=== PATIENT | male | born 1940 | race Asian ===

== ENCOUNTER → 2018-02-28 | Day surgery (SDC) | payer BC, OTHER ==
[2018-02-20 11:53] VITALS: Ht 162.6 cm; Wt 56.8 kg
[~2018-02-28] VITALS: Ht 162.6 cm; Wt 56.8 kg
[~2018-02-28] MED LIST: ASPI1TAB83 PO; ENDOSCOPIC MARKER 5 ML SYR ONE; GLC/500 PO; GLIM2TAB2 PO; INSU100I23 SC; LIDOCAINE HCL 2% 2 ML VIAL (20MG/ML) ONE; PROPOFOL IV EMULSION 10 MG/ML 20 ML VIAL ONE; SODIUM CHLORIDE 0.9% 500ML 500 ML IV ONE
[2018-02-28 11:53] VITALS: TEMP 36.2
--- NOTE | 2018-02-28 12:45 | Endo History and Physical ---
History & Physical Date of Service: February 28, 2018. Chief Complaint: screening Referring Physician: Dr. Nathan History of Present Illness 78 yo male who presents for screening colonoscopy. Past Surgical History Hx Cardiac Surgery: No Hx Internal Defibrillator: No Hx Pacemaker: No Hx Abdominal Surgery: No Hx of Implantable Prosthesis: No Hx Post-Op Nausea and Vomiting: No Hx Cancer Surgery: No Hx Thoracic Surgery: No Hx Orthopedic: Yes (L SHOULDER 1997) Hx Urinary Tract Surgery: No Family History None Social History Smoking Status: Never Smoker Hx Substance Use: No Hx Alcohol Use: Yes (OCCASIONALLY) Allergies Coded Allergies: No Known Allergies (Unverified , 02/28/18) Current Medications Reported Home Medications Medications Dose Route/Sig Max Daily Dose Days Date Category Glucophage (Metformin Hcl) 500 Mg Tab 500 Mg PO BID 02/20/18 Reported Glimepiride 2 Mg Tab 1.5 Tab PO QDD 30 02/20/18 Reported Glimepiride 2 Mg Tab 1 Tab PO QAM 30 02/20/18 Reported Basaglar Kwikpen (Insulin Glargine) 100 Unit/Ml Inj 5-10 Units SC QPM 02/20/18 Reported Aspirin 81 Mg Tab 1 Tab PO DAILY 30 02/20/18 Reported Vital Signs Weight (Kilograms): 56.82 Height (Feet): 5 Height (Inches): 4 Date Time Temp Pulse Resp B/P (MAP) Pulse Ox O2 Delivery O2 Flow Rate FiO2 02/28/18 11:53 36.2 80 18 190/98 (128) 97 Room Air Physical Exam General Appearance: WD/WN, no apparent distress Respiratory/Chest: Auscultation: breath sounds normal Cardiovascular: Heart Auscultation: RRR Abdomen: Bowel Sounds: normal Inspection & Palpation: soft, non-distended, no tenderness, guarding & rebound Assessment and Plan Assessment: 78 yo male who presents for screening colonoscopy. Plan: Proceed with colonoscopy.
--- NOTE | 2018-02-28 13:16 | Discharge Instructions ---
Endoscopy Patient Instructions Date / Procedure(s) Performed February 28, 2018. Colonoscopy Allergy Information Coded Allergies: No Known Allergies (Unverified , 02/28/18) Discharge Date / Findings February 28, 2018. Polypoid mass at Hepatic Flexure s/p biopsies and Sammie Ink Tattoo Diverticulosis Internal hemorrhoids Medication Instructions Stopped Medication(s): All meds stopped 02/26/18. OK to resume all medications today as prescribed Reported Home Medications Medications Dose Route/Sig Max Daily Dose Days Date Category Glucophage (Metformin Hcl) 500 Mg Tab 500 Mg PO BID 02/20/18 Reported Glimepiride 2 Mg Tab 1.5 Tab PO QDD 30 02/20/18 Reported Glimepiride 2 Mg Tab 1 Tab PO QAM 30 02/20/18 Reported Basaglar Kwikpen (Insulin Glargine) 100 Unit/Ml Inj 5-10 Units SC QPM 02/20/18 Reported Aspirin 81 Mg Tab 1 Tab PO DAILY 30 02/20/18 Reported Provider Instructions Activity Restrictions - No exercising or heavy lifting for 24 hours. - Do not drink alcohol the day of the procedure. - Do not drive a car or operate machinery until the day after the procedure. - Do not make any important decisions or sign important papers in 24 hours after the procedure. Following Day: - Return to full activity which may include returning to work/school. Diet Start your diet with liquids and light foods (jello, soup, juice, toast). Then eat your usual diet if not nauseated. Treatment For Common After Affects For mild abdominal pain, bloating, or excessive gas: - Rest - Eat lightly - Lie on right side Follow-Up Information Follow-up with Dr. Nathan as scheduled Anesthesia Information What You Should Know You have had a procedure that required some medicine to reduce anxiety and discomfort. This treatment is called moderate sedation. After receiving the treatment, you may be sleepy, but you will be able to breathe on your own. The effects of the treatment may last for several hours. Follow these instructions along with Activity/Diet recommendations noted above: * Do NOT do anything where dizziness or clumsiness would be dangerous. * Rest quietly at home today, then you can be up and about tomorrow. * Have a responsible person stay with you the rest of today. * You may have had an I.V. today. If so, you may take the dressing off later today. Recommendations Call your doctor if: * Trouble breathing * Continuous vomiting for more than 24 hours * Temperature above 101 degrees * Severe abdominal pain or bloating * Pain not relieved by pain medicine ordered * There is increased drainage or redness from any incision * A large amount of rectal bleeding greater than 2-3 tablespoons. (If you had a polyp/s removed or have hemorrhoids, a small amount of blood - from the rectum is to be expected.) * You have any unanswered questions or concerns. IN THE EVENT OF A SERIOUS EMERGENCY, GO TO THE NEAREST EMERGENCY ROOM Your discharge instructions were prepared by provider Ankush Bryant. Patient Instructions Signature Page Boubacar Brunner Patient (or Guardian) Signature/Date: I have read and understand the instructions given to me by my caregivers. Caregiver/RN/Doctor Signature/Date: The above-named patient and/or guardian has received patient instructions on this date. + Original Patient Signature Page (only) stays with chart. Please make copy for patient.
--- NOTE | 2018-02-28 13:24 | Anesthesiology Progress Note ---
Anesthesia Post Op Note Date & Time February 28, 2018 at 13:24 Vital Signs Pain Intensity: 0 Vital Signs Past 12 Hours Date Time Temp Pulse Resp B/P (MAP) Pulse Ox O2 Delivery O2 Flow Rate FiO2 02/28/18 13:12 73 18 110/60 (77) 74 Room Air 02/28/18 11:53 36.2 80 18 190/98 (128) 97 Room Air Notes Mental Status: alert / awake / arousable, participated in evaluation Pt Amnestic to Procedure: Yes Nausea / Vomiting: adequately controlled Pain: adequately controlled Airway Patency, RR, SpO2: stable & adequate BP & HR: stable & adequate Hydration State: stable & adequate Anesthetic Complications: no major complications apparent
--- NOTE | 2018-02-28 13:30 | GI REPORT ---
Patient Name: Boubacar Brunner Procedure Date: 02/28/2018 12:18 PM Date of : 1940 Admit Type: Outpatient Age: 78 Gender: Male Attending MD: Ankush Bryant DO Procedure: Colonoscopy Providers: Ankush Bryant DO Referring MD: Dax Nathan Indications: Screening for colorectal malignant neoplasm Medicines: Monitored Anesthesia Care Complications: No immediate complications. Estimated Blood Loss: Estimated blood loss: none. Procedure: Pre-Anesthesia Assessment: - Prior to the procedure, a History and Physical was performed, and patient medications and allergies were reviewed. The patient's tolerance of previous anesthesia was also reviewed. The risks and benefits of the procedure and the sedation options and risks were discussed with the patient. All questions were answered, and informed consent was obtained. Prior Anticoagulants: The patient has taken aspirin, last dose was 2 days prior to procedure. ASA Grade Assessment: III - A patient with severe systemic disease. After reviewing the risks and benefits, the patient was deemed in satisfactory condition to undergo the procedure. After I obtained informed consent, the scope was passed under direct vision. Throughout the procedure, the patient's blood pressure, pulse, and oxygen saturations were monitored continuously. The Scope was introduced through the anus and advanced to the terminal ileum. The colonoscopy was performed without difficulty. The patient tolerated the procedure well. The quality of the bowel preparation was good. The terminal ileum, ileocecal valve, appendiceal orifice, and rectum were photographed. Findings: The perianal and digital rectal examinations were normal. A 30 mm polypoid lesion was found at the hepatic flexure. The lesion was polypoid and multi-lobulated. No bleeding was present. This was biopsied with a cold forceps for histology. Area was tattooed with an injection of 4 mL of Sammie ink. Multiple small-mouthed diverticula were found in the sigmoid colon. Non-bleeding internal hemorrhoids were found during retroflexion. The hemorrhoids were small. Impression: - Likely benign polypoid lesion at the hepatic flexure. Biopsied. Tattooed. - Diverticulosis in the sigmoid colon. - Non-bleeding internal hemorrhoids. Recommendation: - Resume previous diet. - Continue present medications. - Await pathology results. - Refer to a surgeon at appointment to be scheduled. Ankush Bryant DO 02/28/2018 1:30:04 PM This report has been signed electronically. Note Initiated On: 02/28/2018 12:18 PM Number of Addenda: 0 I attest to the content of the Intraoperative Record and orders documented therein, exceptions below {[id number]}
[2018-02-28 13:42] VITALS: BP 156/88; PULSE 73; O2SAT 96
== END | disposition home or self-care (01) ==
LOC: C.GI 11:26
PROVIDERS: ATTEND Internal Medicine
DX: Z12.11 Encounter for screening for malignant neoplasm of colon (principal); K63.5 Polyp of colon; K57.30 Diverticulosis of large intestine without perforation or abscess without bleeding; K64.8 Other hemorrhoids; E11.9 Type 2 diabetes mellitus without complications; Z79.4 Long term (current) use of insulin

== ENCOUNTER 2023-09-27 06:57 | Observation (INO) ==
--- NOTE | 2023-09-27 08:46 | History & Physical Bridge Note ---
Date of Service September 27, 2023 History & Physical Bridge Note I have examined the patient, reviewed the History & Physical and in the interval since the performance of the History & Physical I have noted the following changes of clinical significance: patient ate at 4am. Will postpone until later this morning
--- NOTE | 2023-09-27 08:47 | Pre Anesthesia Assessment ---
Date of Service September 27, 2023 Pre Sedation Assessment Vital Signs Pulse Resp BP Pulse Ox O2 Del Method 09/27/23 07:23 63 18 207/91 H 96 Room Air Cardiovascular + regular rate and + regular rhythm Respiratory + respiratory effort normal Pre-Sedation Airway Assessment Smoking Status: Never smoker Hx Sleep Apnea: No Hx Difficult Intubation: No Short, Thick Neck: No Thyromental Distance: > or= 3.5 Finger Breadths Oral Cavity: + WNL Mallampati Class: II ASA: ASA3 NPO Status Date of Last Intake of Fluids: 09/27/23 Time of Last Intake of Fluids: 04:00 Date of Last Intake of Solid Food: 09/27/23 Time of Last Intake of Solid Foods: 04:00 Last Intake of Solids Comment: provider notified Procedure Planning Contraindications for Sedation: none Current Medications Reviewed: Yes Notes The planned sedation has been discussed with the patient. Informed Consent was obtained. I have identified the patient, determined the appropriateness of sedation and have assessed the patient immediately prior to the procedure. All medicine(s) and interventions are by my order.
[2023-09-27] MEDS ORDERED: LOSARTAN POTASSIUM 50 MG TAB PO ONE (09:00)
[2023-09-27] MEDS ORDERED: ASPIRIN 81 MG CHEW ONE (09:20)
[2023-09-27] MEDS ORDERED: fentaNYL citrate PF 100 MCG/2 ML VIAL ONE (09:27)
[2023-09-27] MEDS ORDERED: niCARdipine HCL INJ 2.5 MG/ML 10 ML AMP ONE (09:27)
[2023-09-27] MEDS ORDERED: MIDAZOLAM HCL 1 MG/ML 2ML VIAL ONE (09:27)
[2023-09-27] MEDS ORDERED: HEPARIN (PORCINE) 1000 UNIT/ML 10 ML (CATH LAB USE ONLY) ONE (09:27)
[2023-09-27] MEDS ORDERED: NITROGLYCERIN/D5W 100MCG/ML 20ML SYR ONE (09:28)
--- NOTE | 2023-09-27 10:18 | Cardiac Catheterization ---
[facility] Data: Personal Financial Advisor Cardiac Status Clinical evaluation leading to the procedure CAD Presenation: Positive Stress Test Diagnostic Physicians Name: Samuel Zavaleta MD Closure Device Recommendations: CABG Cardiac Cath Procedure Full Procedure Date September 27, 2023 Pre-Procedure Diagnosis Pre-Procedure Diagnosis: Positive Stress Test AUC Score AUC Score: 7 Post-Procedure Diagnosis Post-Procedure Diagnosis: Severe CAD Procedure(s) Performed Procedure(s) Performed: Coronary Angiography Nurse Anesthetist Samuel Zavaleta MD Statistical Assistant(s) none Estimated Blood Loss Estimated Blood Loss: 7cc Medication(s) Medication(s): Fentanyl, Lidocaine 1%, Nicardipine, Nitroglycerin and Versed Summary of Findings Procedure performed: Coronary angiography Staff paper goods machine set up operator: Samuel Zavaleta MD Indication: The patient is an 83-year-old gentleman who presented earlier in the week for exercise echocardiography. He has been having worsening symptoms of exertional chest pain. His stress test was markedly abnormal with dilation of the ventricle during exercise and ischemic EKG changes associated with symptoms. He was therefore advised as a coronary angiography today. Procedure in detail: The patient was informed of the risks benefits and alternatives to the intended procedure, he understood such and wished to proceed. He was taken to the cardiac catheterization suite in a fasting state. Conscious sedation was administered per protocol and the patient was monitored electrocardiographically throughout today's procedure. The right wrist area was prepped and draped in usual sterile fashion. This area was anesthetized using subcutaneous administration of a lidocaine solution. The right radial artery was then accessed using Seldinger technique, and a arterial sheath was placed at this site over a guidewire. The sheath was used to facilitate passage of the cardiac catheter for coronary angiography and left heart catheterization. Coronary angiogram was then obtained in multiple orthogonal views prior to removal of the catheter. At the conclusion of the procedure the sheath was removed and hemostasis was achieved at the access site using manual pressure. The patient tolerated procedure well, there were no immediate complications. Equipment used: 5 JR4, 5 [place] AL2 Findings: Coronary angiography Left Main: The left main had a 90% distal stenosis with a complex lesion that affected the ostial portions of the circumflex, high diagonal and LAD. Left anterior descending: Left anterior descending was a medium size vessel which produced a very large high diagonal that had a 90% ostial stenosis. The remaining vessel had luminal regularities and produced a 2nd smaller diagonal with a 70% lesion in its proximal portion. Left circumflex: The left circumflex was subtotally occluded in its proximal portion. It produced a high OM 1 which was involved in the complex distal left main lesion. The ongoing circumflex bifurcated into a branching OM 2 with 90% stenosis in both branches. Right coronary: This was a dominant vessel. The right coronary artery had luminal regularities in its proximal portion and a 70% proximal PDA lesion. Impression: Severe coronary disease involving the distal left main, proximal left-sided vessels, OM2, D2 and PDA Right dominant coronary system Normal left ventricular filling pressure Hemodynamics Rest Ao:: 96/59 mm of mercury Final Ao: 114/59 mm of mercury LV: n/a Recommendations Recommendations: CABG Specimens Specimens: None Radiation Exposure (mGy) 469 Contrast (mls) 30 Procedural Complication(s) None Disposition Personal Financial Advisor Holding/Recovery I attest to the content of the Intraoperative Record and any orders documented therein. Any exceptions are noted below. [facility] Card Cath Procedure Codes Cardiac Catheterization Procedure 1: Cardiovascular Cath Procedures: 39062 Coronaries Moderate Sedation Procedure 1: Sedation/Anesthesia: 69596 Mod Sedation by the same physician;Init15 Min Child Age 5 & Up Procedure 2: Sedation/Anesthesia: 91505 Mod Sedation by the same physician; Ea [id number] Minutes PG Care Time/CCT Total # of Minutes Spent Total Time Spent with Patient: Total time spent is greater than 50% in coordination of care (as documented) at patient's floor/unit and/or counseling patient:
--- NOTE | 2023-09-27 10:18 | Post Anesthesia Assessment ---
Date of Service September 27, 2023 Post Sedation Assessment Vital Signs Pulse Resp BP Pulse Ox O2 Del Method 09/27/23 07:23 63 18 207/91 H 96 Room Air Recovery Score Activity: Moves 4 extremities Respiration: Deep Breath/Cough Circulation: +/-20-49% PreAnes Value Consciousness: Fully Awake Oxygen Saturation: > 92% On Room Air Discharge Sedation Level of Care: Fast Track Phase II Post Sedation Plan On clinical assessment, the patient appears to have tolerated the sedation without complications. Patient is recovering as anticipated. Patient will continue to be monitored by nursing and may be discharged when s edation discharge criteria are met per below protocol. Upon Completions of procedure up to 15 minutes continue every 5 minute vital signs and the P.A.R. score; then discharge to a Phase I or Fast Track to Phase II per the following guidelines: * Discharge Patient to appropriate Phase II area if PAR is 8 or greater or return to pre- procedure baseline. The post - procedure orders will be as directed. * If PAR score is less than 8 or not return to pre-procedure baseline then patient will follow Phase I monitoring till PAR is reached for Phase II. The Phase I may be done in procedure room or may call to secure a Phase I area. * If naloxone or flumazenil are used for reversal, hold in Phase I for continued monitoring from when last reversal dose was given for a minimum of 60 minutes or longer pending the nurse and/or physician discretion of patient condition before discharge to Phase II. Please call the Sedation Physician to re-evaluate and complete post-note for discharge to Phase II area. Do NOT discharge from procedure sedation or Phase 1 until post- sedation evaluation note is complete by procedure /sedation MD Sedation Discharge Instructions to be given to the patient at discharge to home.
[2023-09-27] MEDS: NITROGLYCERIN 2% OINTMENT 30GM TUBE EXT SCH ×3 (12:10→23:38)
[2023-09-27] MEDS ORDERED: HEPARIN 25000 UNIT/500 ML D5W IV ONE (12:39)
[2023-09-27] MEDS ORDERED: Heparin IV Adult Wt-Based Low-Dose *NO* INITIAL Bolus Protocol IV STA (12:57)
[2023-09-27] MEDS ORDERED: HEPARIN SODIUM/DEXTROSE 25,000 UNITS/500 ML BAG IV SCH (13:15)
[2023-09-27] MEDS ORDERED: METOPROLOL SUCC 25MG EXT REL TAB PO ONE (15:45)
[2023-09-27] MEDS ORDERED: GLUCOSE 10 TAB/TUBE PO PRN (15:46)
[2023-09-27] MEDS ORDERED: GLUCOSE 40% GEL 15 GM TUBE PO PRN (15:46)
[2023-09-27] MEDS ORDERED: CARBOHYDRATES FOR HYPOGLYCEMIA PO PRN (15:46)
[2023-09-27] MEDS ORDERED: GLUCAGON FOR INJ 1 MG VIAL SQ PRN (15:46)
[2023-09-27] MEDS ORDERED: DEXTROSE 50% 50 ML SYRINGE IV PRN (15:46)
[2023-09-27] MEDS: SODIUM CHLORIDE 0.9% 1,000 ML IV SCH (17:31)
[2023-09-27] MEDS: INSULIN ASPART PER UNIT CHARGE SC SCH ×2 (17:41→20:27)
--- NOTE | 2023-09-27 17:51 | Discharge Summary ---
Date of Service September 27, 2023 Admission HPI Per Admitting Provider The patient is an 83-year-old gentleman with a history of diabetes who reported symptoms of exertional chest discomfort to his primary care physician. The patient claims to be an active individual who likes to use exercise equipment and perform yoga. Recently with at ascending stairs or performing activity he often will have substernal chest discomfort and dyspnea. This tends to resolve itself with deep breathing and rest. The patient was referred for outpatient stress echocardiography earlier this week. He was able to exercise for 5 minutes without symptoms but developed chest discomfort shortly into recovery. He had notable ST segment changes suggestive of ischemia around 4 minutes of a standard Damon protocol. He had echocardiographic findings consistent with severe and possibly multivessel rk nary disease. He was subsequently referred for coronary angiography which was performed today. Principal Diagnosis Coronary artery disease Discharge Exam The patient is alert and oriented. Mood and affect appeared normal. He answered all questions appropriately. HEENT: Pupils are equal and reactive to light and accommodation. Extraocular movements are intact. The sclerae are anicteric. Neuro: Cranial nerves intact Lungs: Clear to auscultation bilaterally. He has good air movement without use of accessory muscles. No rales wheezes or rhonchi. Cardiac: Heart demonstrates a regular rate and rhythm. Normal S1 and S2. No murmurs on examination. Pulses: The patient has palpable radial pulses bilaterally that are equal in intensity Extremities: There was no evidence of hypoperfusion. There is no cyanosis or clubbing. There is no edema. Good perfusion of the right hand Skin: I did not appreciate any rashes on examination today. Discharge Data Allergies Allergy/AdvReac Type Severity Reaction Status Date / Time dulaglutide [From [facility]] AdvReac Intermediate Constipatio Verified 09/27/23 07:37 n Procedures Performed Operation Date: 09/27/23 08:00 Actual Procedures s Cineradiography w/Routine Exam - Samuel Zavaleta MD p Cath, Coronaries ONLY (no LV) - Samuel Zavaleta MD Ordered Studies 09/27/23 07:02 CL Cath Imgs for PACS use only Routine Hospital Course (1) Coronary artery disease: Plan 1. Coronary disease: On the day of admission the patient underwent coronary angiography. This was performed via the right radial artery. He was noted to have significant multivessel coronary disease including severe distal left main coronary disease. Based on his symptoms and these findings he was advised to undergo coronary bypass grafting. Range was were made for transfer to [facility]. The patient tolerated procedure well. He has not had symptoms of chest pain or dyspnea at any point during this admission. He has been restricted to bed rest. We have initiated a low-dose heparin infusion and added transdermal nitroglycerin to his medical regimen primarily for elevated blood pressures. He was started on metoprolol earlier this week and this will be continued during his brief hospitalization. Aspirin will also be continued. Not taking statin therapy due to history of myalgias. He appears to be a good candidate for rechallenge or Repatha Baseline echocardiogram performed on 09/24/2023 revealed preserved LV systolic function and wall motion. Ejection fraction was estimated at 55-60%. Moderate aortic valve sclerosis without significant stenosis. No other significant valvular heart disease. Total Time Total Time Spent Total Time Spent (In Minutes): 30 Discharge Plan Discharge Items Patient Disposition: Transfer Acute Care Hospital Reason For Visit: CAD Discharge Diagnosis: Coronary disease Activity: Per Instructions section Activity Comment: Bedrest Lifting: No more than 5 pounds Lifting Comment: No lifting more than 5 lb or vigorous use of the right wrist for 7 days Non-emergency contact: Gray Tender Call non-emergency contact if: you have any medication questions and your symptoms worsen Follow-up/Referrals: Pro,Dax Huang MD [Primary Care Provider] - Diet: Carb Consistent or DM2 and Heart Healthy Addtl Attending Provider Instructions: none Pending Studies at Discharge: No Stand-Alone Forms: My [facility] Skilled Items Patient informed of condition?: Yes DNR: No Discharge Level of Care: Skilled Communicable Disease: No Discharge Prognosis: Stable Lines: Peripheral IV Urinary Catheter: No Medications and DC Order Prescriptions: Continued (DME) Dexcom G6 Telephoto Installer Misc See Rx Instructions .Route Qty: 1 0RF Rx Instructions: As directed (DME) Dexcom G6 Sensor Device See Rx Instructions .Route Qty: 9 3RF Rx Instructions: use to check blood sugar continuely change out every 10 days (DME) Dexcom G6 Transmitter Device See Rx Instructions .Route Qty: 1 3RF Rx Instructions: use to check blood sugar continuely, change out every 90 days fluocinonide 0.05 % solution 1 applic TOP BID PRN (Reason: eczema) Qty: 60 0RF (DME) OneTouch Verio test strips Strip See Rx Instructions .Route Qty: 100 5RF Rx Instructions: As directed to check blood sugar two times a day (DME) lancets [OneTouch Delica Plus Lancet] 30 gauge misc See Rx Instructions .Route Qty: 100 5RF Rx Instructions: As directed to test blood sugar two times a day (DME) blood-glucose meter [OneTouch Verio Flex meter] Misc See Rx Instructions .Route Qty: 1 0RF Rx Instructions: As directed to test blood sugar two times a day (DME) pen needle, diabetic [BD Ultra-Fine Mini Pen Needle] 31 gauge x 3/16" needle See Rx Instructions .Route Qty: 300 3RF Rx Instructions: As directed to inject insulin three times day metoprolol succinate 25 mg tablet extended release 24 hr 25 mg PO DAILY Qty: 90 3RF olmesartan 40 mg tablet 40 mg PO DAILY Qty: 90 3RF insulin aspart U-100 [Novolog FlexPen U-100 Insulin] 100 unit/mL (3 mL) insulin pen 4 unit subcut BID Patient Comments: 4-5 units depending on BS insulin glargine-yfgn [Semglee(insulin glarg-yfgn)Pen] 100 unit/mL (3 mL) insulin pen 8 - 10 unit subcut QPM Qty: 15 3RF aspirin 81 mg tablet,delayed release (DR/EC) 81 mg PO QAM Held metformin 500 mg tablet 500 mg PO .COMPLEX Qty: 270 3RF Hold Instructions: Resume on 10/04/23. Rx Instructions: 500 mg orally two in am and one in evening; Discharge Orders: Discharge Order (Routine); Ordered 09/27/23 Ordered By: Samuel Zavaleta Admission Data Admit Date/Time: 09/27/23 15:41 Attending Provider: Samuel Zavaleta Admit Provider: Samuel Zavaleta Primary Care Provider: Dax Nathan Coding Level of Care Code 91735 INP/OBS DISCH >30 MIN Diagnoses Coronary artery disease I25.10
[2023-09-27 18:07] LABS: Partial Thromboplastin Ratio 1.5
[2023-09-27 18:33] LABS: Partial Thromboplastin Time 41.1 Seconds (21.0-31.0)
[2023-09-27 19:50] LABS: Basophils # (auto) 0.02 K/uL (0.00-0.20); Basophils % (auto) 0.2 %; Eosinophils # (auto) 0.13 K/uL (0.00-0.50); Eosinophils % (auto) 1.4 %; Hematocrit (blood only) 44.6 % (42.0-52.0); Hemoglobin 15.5 g/dl (14.0-18.0); Immature Granulocytes # (auto) 0.02 K/uL (0.01-0.20); Immature Granulocytes % (auto) 0.2 %; Lymphocytes # (auto) 1.83 K/uL (1.20-3.40); Lymphocytes % (auto) 19.6 %; Mean Corpuscular Hemoglobin 28.8 pg (25.0-34.0); Mean Corpuscular Hgb Conc 34.8 g/dL (32.0-36.0); Mean Corpuscular Volume 82.7 fL (80.0-100.0); Mean Platelet Volume 11.1 fL (9.4-12.4); Monocytes # (auto) 0.79 K/uL (0.11-0.59); Monocytes % (auto) 8.5 %; Neutrophils # (auto) 6.55 K/uL (1.40-6.50); Neutrophils % (auto) 70.1 %; Platelet Count 177 K/uL (130-400); RDW Coefficient of Variation 13.2 % (11.5-14.5); RDW Standard Deviation 39.8 fL (36.4-46.3); Red Blood Count 5.39 M/uL (4.70-6.10); White Blood Count 9.34 K/ul (4.8-10.8)
[2023-09-27] MEDS ORDERED: NON-FORMULARY MEDICATION (Insulin Aspart U-100 [Novolog Flexpen U-100 Insulin] 100 unit/mL SQ SCH (21:00)
[2023-09-27] MEDS: LANTUS PER UNIT CHARGE SQ SCH (21:55)
[2023-09-28] MEDS ORDERED: amLODIPine BESYLATE 5 MG TAB PO ONE (00:59)
[2023-09-28 01:23] LABS: Partial Thromboplastin Ratio 1.8
[2023-09-28 01:27] LABS: Partial Thromboplastin Time 51.3 Seconds (21.0-31.0)
[2023-09-28] MEDS: NITROGLYCERIN 2% OINTMENT 30GM TUBE EXT SCH ×2 (06:05→11:44)
[2023-09-28] MEDS: SODIUM CHLORIDE 0.9% 1,000 ML IV SCH (07:42)
[2023-09-28] MEDS: LANTUS PER UNIT CHARGE SQ SCH (08:01)
[2023-09-28] MEDS: INSULIN ASPART PER UNIT CHARGE SC SCH ×2 (08:01→11:48)
[2023-09-28 08:36] LABS: Partial Thromboplastin Ratio 1.9
[2023-09-28 08:51] LABS: Partial Thromboplastin Time 52.3 Seconds (21.0-31.0)
[2023-09-28] MEDS ORDERED: ASPIRIN 81 MG ECTAB PO SCH (09:00)
[2023-09-28] MEDS ORDERED: METOPROLOL SUCC 25MG EXT REL TAB PO SCH (09:00)
[2023-09-28] MEDS ORDERED: LOSARTAN POTASSIUM 50 MG TAB PO SCH (09:00)
== END 2023-09-28 13:49 | disposition short-term general hospital (02) ==
LOC: CC 06:57 → 2S 06:57
PROC: CLB.CCO (2023-09-27 08:00)

== ENCOUNTER 2023-11-01 12:42 | Observation (INO) ==
[2023-11-01] MEDS ORDERED: SODIUM CHLORIDE 0.9% 500 ML IV SCH (13:15)
--- NOTE | 2023-11-01 13:19 | Emergency Department Note ---
Impression & Plan Weakness, Confusion, Slurred speech, Status post cardiac surgery ED Provider Note NAME: MARCOS SALCEDO AGE: 83 SEX: M : 1940 ARRIVES VIA: Ambulance INFORMANT: [Patient][] ED PROVIDER(S): [Javy Shen MD] CHIEF COMPLAINT: Dizziness, slurred speech HISTORY OF PRESENT ILLNESS: The patient is an 83-year-old male who had 5 cardiac bypasses performed on 01 October, about a month ago. The patient was at [facility] after the surgery for 2 weeks. He was discharged from [facility] 6 days ago. 4 to 5 days ago, the patient came down with what the describes as the stomach flu as he was vomiting for 24 hours. The whole family went through this same illness. In the last 2 days, the patient has had some grogginess, slurring of his speech and complaints of dizziness. No headache, no chest pain, no cough or congestion. No diarrhea or urinary complaints. Things have not improved and have may be worsened in the last 12 hours, the patient's is concerned that his medications are causing his symptoms. As per EMS, the blood sugar was in the 60s during his transport to the ED. PMHx/PSHx/Social Hx: See Below PHYSICAL EXAM: GENERAL: Patient is in no acute distress. HEENT: No acute trauma, normocephalic atraumatic, mucous membranes dry, no nasal congestion. NECK: No stridor, no adenopathy, no meningismus, trachea is midline. LUNGS: Some coarse breath sounds are heard when listening anterior, there is no wheezing, no respiratory distress. Chest: He does have a midline sternal incision which is healing well, no erythema. HEART: Subtle systolic murmur, regular rate and rhythm. ABDOMEN: Soft, nontender, no peritonitis. EXTREMITIES: No cyanosis, full range of motion of all the joints without pain or difficulty. NEUROLOGIC: Oriented x 3, no acute motor or sensory deficits, no focal weakness. Some slight speech slurring noted. No extremity drift or cerebellar dysfunction. SKIN: No jaundice, no diaphoresis. DIFFERENTIAL DIAGNOSIS: Stroke, dehydration, electrolyte imbalance, medication reaction, anemia, liver or renal failure, among others. EMERGENCY DEPARTMENT PROCEDURES: MEDICAL DECISION MAKING: There is no leukocytosis or concerning anemia. There is a normal platelet count. No renal failure or significant electrolyte abnormality. No liver enzyme elevation. Ammonia level was not elevated. The patient appeared to be in a euthyroid state. ECG shows a normal sinus rhythm with some inverted T waves laterally, no ST elevation. Cardiac enzyme testing x 1 is not consistent with acute cardiac injury. Urinalysis does not show infection. COVID, influenza and RSV test were negative. Chest film does not show pneumonia or CHF. Brain CT shows no acute bleed or mass effect. On exam, patient had some somnolence and some slurring of his speech with no focal neurologic deficit. He was not febrile or toxic. Patient was given a 500 cc bolus, a second 500 cc bolus was ordered. The patient presents with confusion and speech slurring. No findings of stroke clinically or by CT scan. The patient would not be a TNK candidate as he has had symptoms for 2 days. At this point, the cause for his presentation is unclear. I suppose, his speech slur and somnolence may be from his new medications. Given the uncertainty of the cause for his symptoms, I do think further workup and care is warranted. I did speak with the case management team, I spoke with the on-call hospitalist. I spoke with the patient and his family. Prior/Outside records/notes reviewed: Today's EMS notes. ECG per my interpretation: Indication was possible stroke. The ECG shows a normal sinus rhythm with some artifact. There is a rate of 67. There are some inverted T waves laterally. No ST elevation. No PVCs. The QTc is 397. Compared to an ECG from 11 September 2022, the rate has decreased, the lateral T wave changes are now present. Continuous Cardiac Monitoring per my interpretation: An order was placed for continuous cardiac monitoring. The monitor shows a rate of 69 with normal sinus rhythm. Imaging/x-ray results per my interpretation: Chest x-ray does not show mediastinal widening, pneumonia or pneumothorax. Chronic Medical/Social conditions affecting care: Advanced age, coronary artery disease. Care/Management discussed with: Case management, the on-call hospitalist. Level of care consideration(s): After review of the information above and other included data: --I believe the patient requires escalation of care to admission Critical Care Note: I have personally spent 42 minutes of critical care time in the direct management of this patient. This includes bedside care, interpretation of diagnostic studies, and testing, discussion with consultants, patient, and family members, and other required patient management activities. This 42 minutes is in excess of all separately billable procedures. DISPOSITION: Admission Past Med/Surg History Medical History Diabetic retinopathy Inguinal hernia rt Type 2 diabetes mellitus Dexcom present Polypoid adenoma hx Hypertension Hyperlipidemia no meds Eczema Diverticulosis Surgical History (Updated 11/01/23 @ 18:12 by Javy Shen MD) History of heart bypass surgery H/O right inguinal hernia repair (10/10/22) p Open Repair Right Inguinal Hernia Possible Mesh(Right) - William Christine MD, FACS Open repair [place] History of anesthesia problem Elevated BP during 02/2022 colonoscopy per pt requiring additional meds per pt. MAC sedation used for colonoscopy 03/16/22 at [facility]- No major complications noted per post-op anesthesia progress note. Per progress note, elevated BP readings from 170-200s/80-100s with improvement prior to discharge. (Preop BP was 166/77) PCP aware of elevated BP at that time and monitoring closely/adjusting Losartan dosing. BP 120/82 and 130/82 at PCP visit 08/21/22. History of colonoscopy (~02/2022) with polypectomy H/O shoulder surgery (~1998) left Family History Sister Diabetes Brother Diabetes Grandfather (Maternal) Diabetes Father Myocardial infarction Denies family history of Ovarian cancer Prostate cancer Breast cancer Colorectal cancer Stroke Social History Smoking Status: Never smoker Second Hand Exposure: No; Do You Dip or Chew Tobacco: No; Hx Alcohol Use: No Hx Substance Use: No Preferred Language: Kazakh Communication Ability: Effective Visual Impairment: No Limitations Hearing Ability: Normal Inspector Air Carrier Required: No Beliefs That Will Affect Care: None marital status: Current Living Situation: Spouse current occupational status: employed current occupation: Professor How many Children do You have: 2 Feels Safe at Home: Yes Childhood Exposure to Second-Hand Smoke: No Diet: diabetic during the past year weight has: decreased > 10 lbs Dental Care, Regularly: Yes Physical Activity Frequency: 5-6 Times per Week Seatbelt Use: always Assistive Devices: Glasses Allergies Allergies Allergy/AdvReac Type Severity Reaction Status Date / Time dulaglutide [From [facility]] AdvReac Intermediate Constipatio Verified 09/27/23 07:37 n Home Meds Home Medications Medication Instructions Recorded Confirmed aspirin 81 mg tablet,delayed 81 mg PO QAM 03/10/22 11/01/23 release insulin aspart U-100 100 unit/mL 4 unit subcut BID 09/18/23 09/27/23 (3 mL) subcutaneous pen (Novolog FlexPen U-100 Insulin aspart) amiodarone 200 mg tablet 200 mg PO DAILY 11/01/23 11/01/23 amlodipine 10 mg tablet 10 mg PO DAILY 11/01/23 11/01/23 isosorbide mononitrate 30 mg 30 mg PO DAILY 11/01/23 11/01/23 tablet,extended release 24 hr metoprolol tartrate 25 mg tablet 25 mg PO BID 11/01/23 11/01/23 rosuvastatin 10 mg tablet 10 mg PO QPM 11/01/23 11/01/23 Previous Rx's Medication Instructions Recorded blood-glucose meter,continuous #1 ea 02/17/22 (Dexcom G6 Membership Solicitor) blood-glucose transmitter (Dexcom #1 ea 11/21/22 G6 Transmitter device) Semglee(insulin glarg-yfgn)Pen 100 8 - 10 unit (0.08 - 0.1 mL) subcut 01/09/23 unit/mL (3 mL) subcutaneous QPM #15 mL (insulin glargine-yfgn) metformin 500 mg tablet 500 mg PO .COMPLEX #270 tabs 01/09/23 blood sugar diagnostic (OneTouch #100 ea 03/06/23 Verio test strips) blood-glucose meter (OneTouch #1 ea 03/06/23 Verio Flex Meter) lancets 30 gauge (OneTouch Delica #100 ea 03/06/23 Plus Lancet) olmesartan 40 mg tablet 40 mg PO DAILY #90 tabs 05/09/23 pen needle, diabetic 31 gauge x #300 ea 06/01/23 3/16" (BD Ultra-Fine Mini Pen Needle) blood-glucose sensor (Dexcom G6 #9 ea 10/09/23 Sensor device) Results & Data (ED) Vital Signs Vital Signs - 24 hr 11/01/23 12:57 11/01/23 12:57 11/01/23 13:53 Temperature 36.6 C Temperature Source Oral Pulse Rate 69 Pulse Rate [Apical] Respiratory Rate 16 Blood Pressure 163/88 H Blood Pressure [Right Arm] Blood Pressure Mean 113 Blood Pressure Mean [Right Arm] Pulse Oximetry 97 96 Oxygen Delivery Method Room Air Room Air Room Air Sepsis Recent Fever Within 48 Hours No Sepsis New/Unexplained Change in Mental Status No Sepsis Action Taken by Nursing No Action Required 11/01/23 13:53 11/01/23 14:55 Temperature Temperature Source Pulse Rate Pulse Rate [Apical] 66 71 Respiratory Rate 14 16 Blood Pressure Blood Pressure [Right Arm] 157/88 H 143/75 H Blood Pressure Mean Blood Pressure Mean [Right Arm] 111 97 Pulse Oximetry 94 95 Oxygen Delivery Method Room Air Room Air Sepsis Recent Fever Within 48 Hours Sepsis New/Unexplained Change in Mental Status Sepsis Action Taken by Long-Term Medications Current Medication List: was personally reviewed by me Laboratory Data Attestation: I reviewed the patient's lab results. 11/01/23 13:02 11/01/23 13:02 Lab Results 11/01/23 11/01/23 11/01/23 Range/Units 12:50 12:52 13:02 WBC 10.08 (4.8-10.8) K/ul RBC 5.20 (4.70-6.10) M/uL Hgb 15.1 (14.0-18.0) g/dl Hct 44.2 (42.0-52.0) % MCV 85.0 (80.0-100.0) fL MCH 29.0 (25.0-34.0) pg MCHC 34.2 (32.0-36.0) g/dL RDW Std Deviation 42.5 (36.4-46.3) fL RDW Coeff of Sherri 13.7 (11.5-14.5) % Plt Count 292 (130-400) K/uL MPV 11.0 (9.4-12.4) fL Immature Gran % (Auto) 0.7 % Neut % (Auto) 68.1 % Lymph % (Auto) 20.7 % Stephens % (Auto) 8.4 % Eos % (Auto) 1.7 % Baso % (Auto) 0.4 % Neut # (Auto) 6.86 H (1.40-6.50) K/uL Lymph # (Auto) 2.09 (1.20-3.40) K/uL Stephens # (Auto) 0.85 H (0.11-0.59) K/uL Eos # (Auto) 0.17 (0.00-0.50) K/uL Baso # (Auto) 0.04 (0.00-0.20) K/uL Immature Gran # (Auto) 0.07 (0.01-0.20) K/uL Sodium 137 (136-145) mmol/L Potassium 3.7 (3.5-5.1) mmol/L Chloride 101 (98-107) mmol/L Carbon Dioxide 28 (21-32) mmol/L Anion Gap 8 (3-11) BUN 20 (6-23) mg/dl Creatinine 0.96 (0.6-1.4) mg/dl Est Cr Clr Drug Dosing 46.2 ml/min Est GFR ( Amer) 85.6 ml/min Est GFR (Non-Af Amer) 73.8 ml/min BUN/Creatinine Ratio 20.8 H (10-20) Glucose 64 L (70-99(Fasting)) mg/dl POC Glucose 61 L* 62 L* (70-99) mg/dl Calcium 9.0 (8.6-10.3) mg/dl Magnesium 2.0 (1.7-2.4) mg/dl Total Bilirubin 0.6 (0.2-1.0) mg/dl AST 19 (13-39) U/L ALT 24 (7-52) U/L Alkaline Phosphatase 73 (34-104) U/L Ammonia 25.0 (18-72) umol/L Troponin I High Sens 8.8 (0-20) pg/ml Total Protein 7.3 (6.0-8.3) gm/dl Albumin 4.0 (3.4-5.0) gm/dl Globulin 3.3 (2.5-4.0) gm/dl Albumin/Globulin Ratio 1.2 (0.9-2) TSH 4.107 (0.300-4.500) uIu/ml Urine Color Urine Appearance (Clear) Urine pH (4.5-7.5) Ur Specific [place] (1.000-1.030) Urine Protein (Negative) Urine Glucose (UA) (Negative) Urine Ketones (Negative) Urine Blood (Negative) Urine Nitrite (Negative) Urine Bilirubin (Negative) Urine Urobilinogen (Negative) Ur Leukocyte Esterase (Negative) SARS-CoV-2 (PCR) (Negative) Influenza Type A (PCR) (Neg) Influenza Type B (PCR) (Neg) RSV (RT-PCR) (Neg) 11/01/23 Range/Units 13:35 WBC (4.8-10.8) K/ul RBC (4.70-6.10) M/uL Hgb (14.0-18.0) g/dl Hct (42.0-52.0) % MCV (80.0-100.0) fL MCH (25.0-34.0) pg MCHC (32.0-36.0) g/dL RDW Std Deviation (36.4-46.3) fL RDW Coeff of Sherri (11.5-14.5) % Plt Count (130-400) K/uL MPV (9.4-12.4) fL Immature Gran % (Auto) % Neut % (Auto) % Lymph % (Auto) % Stephens % (Auto) % Eos % (Auto) % Baso % (Auto) % Neut # (Auto) (1.40-6.50) K/uL Lymph # (Auto) (1.20-3.40) K/uL Stephens # (Auto) (0.11-0.59) K/uL Eos # (Auto) (0.00-0.50) K/uL Baso # (Auto) (0.00-0.20) K/uL Immature Gran # (Auto) (0.01-0.20) K/uL Sodium (136-145) mmol/L Potassium (3.5-5.1) mmol/L Chloride (98-107) mmol/L Carbon Dioxide (21-32) mmol/L Anion Gap (3-11) BUN (6-23) mg/dl Creatinine (0.6-1.4) mg/dl Est Cr Clr Drug Dosing ml/min Est GFR ( Amer) ml/min Est GFR (Non-Af Amer) ml/min BUN/Creatinine Ratio (10-20) Glucose (70-99(Fasting)) mg/dl POC Glucose (70-99) mg/dl Calcium (8.6-10.3) mg/dl Magnesium (1.7-2.4) mg/dl Total Bilirubin (0.2-1.0) mg/dl AST (13-39) U/L ALT (7-52) U/L Alkaline Phosphatase (34-104) U/L Ammonia (18-72) umol/L Troponin I High Sens (0-20) pg/ml Total Protein (6.0-8.3) gm/dl Albumin (3.4-5.0) gm/dl Globulin (2.5-4.0) gm/dl Albumin/Globulin Ratio (0.9-2) TSH (0.300-4.500) uIu/ml Urine Color Yellow Urine Appearance Clear (Clear) Urine pH 7.5 (4.5-7.5) Ur Specific [place] 1.010 (1.000-1.030) Urine Protein Negative (Negative) Urine Glucose (UA) Negative (Negative) Urine Ketones Negative (Negative) Urine Blood Negative (Negative) Urine Nitrite Negative (Negative) Urine Bilirubin Negative (Negative) Urine Urobilinogen Negative (Negative) Ur Leukocyte Esterase Negative (Negative) SARS-CoV-2 (PCR) NEGATIVE (Negative) Influenza Type A (PCR) Negative (Neg) Influenza Type B (PCR) Negative (Neg) RSV (RT-PCR) Negative (Neg) Administered Medications Discontinued Medications Sodium Chloride (Nss) 500 mls @ 999 mls/hr IV .Q31M HARSHIL Stop: 11/01/23 13:45 Last Infusion: 11/01/23 14:55 Dose: Infused Documented By: Admin: 11/01/23 13:52 Dose: 999 mls/hr Documented By: MADHAV Sodium Chloride (Nss) 500 mls @ 999 mls/hr IV .Q31M ONE Stop: 11/01/23 14:30 Last Infusion: 11/01/23 15:25 Dose: Infused Documented By: Admin: 11/01/23 14:54 Dose: 999 mls/hr Documented By: MADHAV Imaging Data Radiologist's Impression: Chest X-Ray 11/01/23 13:07 SINGLE VIEW CHEST CLINICAL HISTORY: Generalized weakness. FINDINGS: An AP, portable, upright chest radiograph is compared to study dated 09/11/2022. The patient is status post midline sternotomy. The cardiomediastinal silhouette is top normal for projection noting atherosclerotic calcification of the thoracic aorta. Chronic interstitial thickening is similar to previous. The lungs and pleural spaces are clear. No pneumothorax is seen. The skeletal structures are osteopenic. The bony thorax is grossly intact. A surgical anchor is noted in the left humeral head. IMPRESSION: No active disease in the chest. ACT 112: Negative or not required by law. Electronically signed by: Javy Saxena M.D. 11/01/2023 1:[address] 11/01/23 13:07 CT head/brain wo con CLINICAL HISTORY: 83 years-old Male with altered. Acutely altered mental status TECHNIQUE: Multiple axial CT images of the head were obtained without contrast. A dose lowering technique was utilized adhering to the principles of ALARA. CT DOSE: 625.8 mGy.cm COMPARISON: 10/12/2023. FINDINGS: No acute intracranial hemorrhage, midline shift, intracranial mass, hydrocephalus, territorial ischemia or abnormal extra-axial collection. Involutional changes with chronic microvascular ischemic disease. 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 The calvarium is intact. The paranasal sinuses, mastoid air cells, and middle ear cavities are clear. IMPRESSION: No acute intracranial abnormality. ACT 112: Negative or not required by law. The above report was generated using voice recognition software. It may contain grammatical, syntax or spelling errors. Electronically signed by: Karsten Washburn M.D. 11/01/2023 1:57 PM Discharge Plan Visit Data Chief Complaint: Dizziness Stated Complaint: slurred speech x's 2 days ED Provider: Javy Shen Discharge Problem: Weakness, Confusion, Slurred speech, Status post cardiac surgery Patient Disposition: Admitted As Inpatient Condition: Fair Discharge Instructions Interventions: ED Discharge Assessment Last Done: 11/01/23 17:56
[2023-11-01 13:35] LABS: Basophils # (auto) 0.04 K/uL (0.00-0.20); Basophils % (auto) 0.4 %; Eosinophils # (auto) 0.17 K/uL (0.00-0.50); Eosinophils % (auto) 1.7 %; Hematocrit (blood only) 44.2 % (42.0-52.0); Hemoglobin 15.1 g/dl (14.0-18.0); Immature Granulocytes # (auto) 0.07 K/uL (0.01-0.20); Immature Granulocytes % (auto) 0.7 %; Lymphocytes # (auto) 2.09 K/uL (1.20-3.40); Lymphocytes % (auto) 20.7 %; Mean Corpuscular Hgb Conc 34.2 g/dL (32.0-36.0); Monocytes # (auto) 0.85 K/uL (0.11-0.59); Monocytes % (auto) 8.4 %; Neutrophils # (auto) 6.86 K/uL (1.40-6.50); Neutrophils % (auto) 68.1 %; Platelet Count 292 K/uL (130-400); RDW Coefficient of Variation 13.7 % (11.5-14.5); RDW Standard Deviation 42.5 fL (36.4-46.3); White Blood Count 10.08 K/ul (4.8-10.8)
[2023-11-01 13:40] LABS: Albumin Globulin Ratio 1.2 (0.9-2); BUN Creatinine Ratio 20.8 (10-20); Bilirubin,Total 0.6 mg/dl (0.2-1.0); Creatinine Clr Calc Pharmacy 46.2 ml/min; Est GFR (African American) 85.6 ml/min; Est GFR (Non-African American) 73.8 ml/min; Globulin 3.3 gm/dl (2.5-4.0); Potassium 3.7 mmol/L (3.5-5.1); Total Protein 7.3 gm/dl (6.0-8.3)
--- NOTE | 2023-11-01 13:43 | XRay Report ---
SINGLE VIEW CHEST CLINICAL HISTORY: Generalized weakness. FINDINGS: An AP, portable, upright chest radiograph is compared to study dated 09/11/2022. The patien t is status post midline sternotomy. The cardiomediastinal silhouette is top normal for projection no ting atherosclerotic calcification of the thoracic aorta. Chronic interstitial thickening is similar to previous. The lungs and pleural spaces are clear. No pneumothorax is seen. The skeletal structures are osteopenic. The bony thorax is grossly intact. A surgical anchor is noted in the left humeral he ad. IMPRESSION: No active disease in the chest. ACT 112: Negative or not required by law. Electronically signed by: Javy Saxena M.D. 11/01/2023 1:42 PM
[2023-11-01 13:47] LABS: Troponin I High Sensitivity 8.8 pg/ml (0-20)
[2023-11-01 13:54] LABS: Thyroid Stimulating Hormone 4.107 uIu/ml (0.300-4.500)
--- NOTE | 2023-11-01 13:58 | CT Scan Report ---
CT head/brain wo con CLINICAL HISTORY: 83 years-old Male with altered. Acutely altered mental status TECHNIQUE: Multiple axial CT images of the head were obtained without contrast. A dose lowering tech nique was utilized adhering to the principles of ALARA. CT DOSE: 625.8 mGy.cm COMPARISON: 10/12/2023. FINDINGS: No acute intracranial hemorrhage, midline shift, intracranial mass, hydrocephalus, territorial ischem ia or abnormal extra-axial collection. Involutional changes with chronic microvascular ischemic disea se. 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 The calvarium is intact. The paranasal sinuses, mastoid air cells, and middle ear cavities are clear . IMPRESSION: No acute intracranial abnormality. ACT 112: Negative or not required by law. The above report was generated using voice recognition software. It may contain grammatical, syntax o r spelling errors. Electronically signed by: Karsten Washburn M.D. 11/01/2023 1:57 PM
[2023-11-01] MEDS ORDERED: SODIUM CHLORIDE 0.9% 500 ML IV ONE (14:00)
[2023-11-01 14:46] LABS: Appearance Urine Clear (Clear); Bilirubin Urine Negative (Negative); Blood Urine Negative (Negative); Color Urine Yellow; Glucose Urine UA Negative (Negative); Ketones Urine Negative (Negative); Leukocyte Esterase Urine Negative (Negative); Nitrite Urine Negative (Negative); Protein Urine Negative (Negative); Urobilinogen Urine Negative (Negative); pH Urine 7.5 (4.5-7.5)
--- NOTE | 2023-11-01 15:04 | History & Physical Report ---
Date of Service November 01, 2023 Assessment & Plan (1) Dizziness: Plan: Dizziness, balance issues, and changes in vision x 3 days In the setting of recent CABG x 5 at [facility] on 10/01; patient was recently discharged from [facility] on 10/26 Patient's is concerned that the dizziness is due to his current medications; specifically his recent changes in blood pressure medications Patient was hypoglycemic at [address] revealed NAF EKG revealed NSR at 67 bpm; QTc 397 Patient is A&Ox3 on arrival Continuous telemetry monitoring Orthostatic vitals ordered, pending Supplemental oxygen as needed Clinically, suspect dizziness is secondary to hypoglycemia +/- BP medications following surgery Patient does not exhibit focal deficits, unilateral weakness, or facial droop; if patient does not clinically improve, recommend follow-up brain MRI A.m. CBC, BMP (2) Type 2 diabetes mellitus: Plan: Last A1c 6.1% on 09/04/2023 Hypoglycemic on arrival at 62 Hold metformin Note: Patient reports he has been taking insulin as follows: - 8 units of NovoLog, 10 units of Semglee (Lantus) QAM - None at lunch time -10 units of NovoLog, 10 units of Semglee (Lantus) QPM Patient's medication list from 10/26 at time of [facility] discharge listed Lantus as 18 units HS Patient uses a Dexcom at home to manage his insulin levels Recommend Lantus 5u BID while inpatient SSI; with target BSG range 160208dc/dL, CF 70, carb ratio 20 Continue to monitor for signs of hypoglycemia T2DM diet BSG [facility] Pharm[facility] glycemic consult (3) Hypertension: Plan: BP 143/75 on arrival Patient reports he has an at home blood pressure cuff and has been taking it regularly; he says it has not been going low It should be noted that patient was recently started on several blood pressure medications following his heart surgery Patient had an upcoming appointment with [facility] on 11/05 On amlodipine, isosorbide mononitrate, metoprolol, olmesartan ?Discharged on amiodarone for arrhythmia (4) Hyperlipidemia: Plan: Continue rosuvastatin 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 Yaya Arce Recent discharge from [facility] on 10/26 Continue aspirin Plan Disposition: Obs -admit to [facility] telemetry Full code AHA, T2DM diet VTE PPx: SCDs, Lovenox 40 mg SQ q24h History of Present Illness Chief Complaint: Dizziness Primary Care Provider: Dax Nathan MD Boubacar is an 83-year-old male with PMH of 5 recent bypass surgeries in September 2023, T2DM, HTN, HLD, diabetic retinopathy, neuropathy, and CAD. He presented for dizziness, balance issues, and slurred speech x 3 days. Patient reportedly had a stomach bug 6 days ago, and was vomiting for 24 hours, but this has since resolved. Since then, he has been somewhat fatigued and dizzy with vision issues. Patient reports that the dizziness is worse with standing. Patient's is at the bedside and believes that it is due to his current medication list; more specifically due to his blood pressure medications. Patient reports that he has a BP monitor at home, and that he has been checking it regularly; he reports that it has not been low. Neither patient nor have noticed a facial droop, or unilateral deficits. Patient has been hypoglycemic at 62 since arrival, despite receiving juice in the ED. He denies history of vertigo, CVA, or seizures; however patient notes he had a recent brain MRI with chronic changes that could indicate history of TIAs. Patient has been using a walker to ambulate since his heart surgery was in September. He reports good compliance with taking his medications, including his insulin. No recent change in medications was starting Tamiflu 30 mg x 5 days. No recent rashes, or tick bites. He denies recent injuries or trauma to the head or neck. Denies recent falls or fainting. He denies alcohol, tobacco, vaping, or recreational drug use. Patient is mildly hypertensive at 143/75 at time of admission; vitals otherwise stable. ED course: NSS 500 mL IV x 2 ROS: Patient endorses dizziness, balance issues, changes in vision, diplopia, blurred vision, pleuritic CP (which has been ongoing since his surgery), increased urinary frequency, and vomiting (which has resolved). Patient denies fever, chills, sweating, headache, neck pain, falls, fainting, photophobia, changes in hearing/taste/smell, chest pain, SOB, abdominal pain, or numbness or tingling in the arms or legs bilaterally. Note: Patient reports he has been taking insulin as follows: - 8 units of NovoLog, 10 units of Semglee (Lantus) QAM - None at lunch time -10 units of NovoLog, 10 units of Semglee (Lantus) QPM Patient's medication list from 10/26 at time of [facility] discharge listed Lantus as 18 units HS Allergies Allergy/AdvReac Type Severity Reaction Status Date / Time dulaglutide [From [facility]] AdvReac Intermediate Constipatio Verified 09/27/23 07:37 n Home Medications Medication Instructions Recorded Confirmed Type blood-glucose meter,continuous #1 ea 02/17/22 09/18/23 Rx (Dexcom G6 Plate Worker Helper) aspirin 81 mg tablet,delayed 81 mg PO QAM 03/10/22 11/01/23 History release blood-glucose transmitter (Dexcom #1 ea 11/21/22 09/18/23 Rx G6 Transmitter device) Semglee(insulin glarg-yfgn)Pen 100 8 - 10 unit (0.08 - 0.1 mL) subcut 01/09/23 09/27/23 Rx unit/mL (3 mL) subcutaneous QPM #15 mL (insulin glargine-yfgn) metformin 500 mg tablet 500 mg PO .COMPLEX #270 tabs 01/09/23 11/01/23 Rx blood sugar diagnostic (OneTouch #100 ea 03/06/23 09/18/23 Rx Verio test strips) blood-glucose meter (OneTouch #1 ea 03/06/23 09/18/23 Rx Verio Flex Meter) lancets 30 gauge (OneTouch Delica #100 ea 03/06/23 09/18/23 Rx Plus Lancet) olmesartan 40 mg tablet 40 mg PO DAILY #90 tabs 05/09/23 11/01/23 Rx pen needle, diabetic 31 gauge x #300 ea 06/01/23 09/18/23 Rx 3/16" (BD Ultra-Fine Mini Pen Needle) insulin aspart U-100 100 unit/mL 4 unit subcut BID 09/18/23 09/27/23 History (3 mL) subcutaneous pen (Novolog FlexPen U-100 Insulin aspart) blood-glucose sensor (Dexcom G6 #9 ea 10/09/23 Rx Sensor device) amiodarone 200 mg tablet 200 mg PO DAILY 11/01/23 11/01/23 History amlodipine 10 mg tablet 10 mg PO DAILY 11/01/23 11/01/23 History isosorbide mononitrate 30 mg 30 mg PO DAILY 11/01/23 11/01/23 History tablet,extended release 24 hr metoprolol tartrate 25 mg tablet 25 mg PO BID 11/01/23 11/01/23 History rosuvastatin 10 mg tablet 10 mg PO QPM 11/01/23 11/01/23 History Past Med/Surg History Medical History (Updated 11/01/23 @ 16:17 by Jovani Fernandez PA-C) Diabetic retinopathy Inguinal hernia rt Type 2 diabetes mellitus Dexcom present Polypoid adenoma hx Hypertension Hyperlipidemia no meds Eczema Diverticulosis Surgical History (Updated 11/01/23 @ 16:17 by Jovani Fernadnez PA-C) History of heart bypass surgery H/O right inguinal hernia repair (10/10/22) p Open Repair Right Inguinal Hernia Possible Mesh(Right) - William Christine MD, FACS Open repair Star History of anesthesia problem Elevated BP during 02/2022 colonoscopy per pt requiring additional meds per pt. MAC sedation used for colonoscopy 03/16/22 at [facility]- No major complications noted per post-op anesthesia progress note. Per progress note, elevated BP readings from 170-200s/80-100s with improvement prior to discharge. (Preop BP was 166/77) PCP aware of elevated BP at that time and monitoring closely/adjusting Losartan dosing. BP 120/82 and 130/82 at PCP visit 08/21/22. History of colonoscopy (~02/2022) with polypectomy H/O shoulder surgery (~1998) left Family History Sister Diabetes Brother Diabetes Grandfather (Maternal) Diabetes Father Myocardial infarction Denies family history of Ovarian cancer Prostate cancer Breast cancer Colorectal cancer Stroke Social History Smoking Status: Never smoker Second Hand Exposure: No; Do You Dip or Chew Tobacco: No; Hx Alcohol Use: No Hx Substance Use: No Preferred Language: Sudanese Communication Ability: Effective Visual Impairment: No Limitations Hearing Ability: Normal Animal Caretaker Required: No Beliefs That Will Affect Care: None marital status: Current Living Situation: Spouse current occupational status: employed current occupation: Professor How many Children do You have: 2 Feels Safe at Home: Yes Childhood Exposure to Second-Hand Smoke: No Diet: diabetic during the past year weight has: decreased > 10 lbs Dental Care, Regularly: Yes Physical Activity Frequency: 5-6 Times per Week Seatbelt Use: always Assistive Devices: Glasses Review of Systems Review of Systems: See HPI above Physical Exam Physical Exam: General: no acute distress; non-toxic appearing; well-nourished; cooperative; SpO2 95% on RA HEENT: normocephalic, atraumatic; no scleral icterus; PERRLA w/ EOMs intact; moist mucus membrane; vision and hearing grossly intact Neck: supple; no JVD; no lymphadenopathy; trachea midline Skin: warm, dry without signs of tenting; no cyanosis; no rashes, bruising, lesions, or erythema noted CV: chest wall NTP; RRR; S1/S2 normal; no murmurs/rubs/gallops; pulses intact and symmetric at radial, DP, and PT Lungs: no acute respiratory distress; symmetrical chest wall expansion; clear breath sounds across all lung garcia w/o adventitious sounds; no wheezing ABD: Soft, NTP; BS present; no rebound/guarding; no ascites; no distention; negative CVA tenderness MSK: no tics or fasciculations; no edema noted in the LEs b/l Neuro: A&Ox3; normal mood and affect; fluent speech; CN2-12 intact; sensation g rossly intact Results & Data Results & Data Vital Signs (Past 12 Hours) Vital Signs Temp Pulse Pulse Resp BP BP Pulse Ox 11/01/23 14:55 71 16 143/75 H 95 11/01/23 13:53 66 14 157/88 H 94 11/01/23 13:53 96 11/01/23 12:57 11/01/23 12:57 36.6 C 69 16 163/88 H 97 O2 Del Method 11/01/23 14:55 Room Air 11/01/23 13:53 Room Air 11/01/23 13:53 Room Air 11/01/23 12:57 Room Air 11/01/23 12:57 Room Air Laboratory Results Abnormal lab results 11/01/23 11/01/23 11/01/23 Range/Units 12:50 12:52 13:02 Neut # (Auto) 6.86 H (1.40-6.50) K/uL [place] # (Auto) 0.85 H (0.11-0.59) K/uL BUN/Creatinine Ratio 20.8 H (10-20) Glucose 64 L (70-99(Fasting)) mg/dl POC Glucose 61 L* 62 L* (70-99) mg/dl Diagnostic Findings Chest X-Ray 11/01/23 13:07 SINGLE VIEW CHEST CLINICAL HISTORY: Generalized weakness. FINDINGS: An AP, portable, upright chest radiograph is compared to study dated 09/11/2022. The patient is status post midline sternotomy. The cardiomediastinal silhouette is top normal for projection noting atherosclerotic calcification of the thoracic aorta. Chronic interstitial thickening is similar to previous. The lungs and pleural spaces are clear. No pneumothorax is seen. The skeletal str uctures are osteopenic. The bony thorax is grossly intact. A surgical anchor is noted in the left humeral head. IMPRESSION: No active disease in the chest. ACT 112: Negative or not required by law. Electronically signed by: Javy Saxena M.D. 11/01/2023 1:[address] 11/01/23 13:07 CT head/brain wo con CLINICAL HISTORY: 83 years-old Male with altered. Acutely altered mental status TECHNIQUE: Multiple axial CT images of the head were obtained without contrast. A dose lowering technique was utilized adhering to the principles of ALARA. CT DOSE: 625.8 mGy.cm COMPARISON: 10/12/2023. FINDINGS: No acute intracranial hemorrhage, midline shift, intracranial mass, hydrocephalus, territorial ischemia or abnormal extra-axial collection. I nvolutional changes with chronic microvascular ischemic disease. 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 The calvarium is intact. The paranasal sinuses, mastoid air cells, and middle ear cavities are clear. IMPRESSION: No acute intracranial abnormality. ACT 112: Negative or not required by law. The above report was generated using voice recognition software. It may contain grammatical, syntax or spelling errors. Electronically signed by: aKrsten Washburn M.D. 11/01/2023 1:57 PM Supervising Physician Co-Signing Physician Notes Patient seen and examined, chart reviewed, case discussed with Jovani Fernandez PA-C and I agree with the assessment and plan as above except as otherwise noted Labs and images reviewed Mr. Brunner is a 83-year-old male who presents with dizziness, sedation and altered mental status with unclear etiology. Recently had multiple bypass surgeries last 09/2023 at [place], and has a history of type II DM, hypertension, hyperlipidemia, neuropathy, CAD. He has had dizziness, poor balance, confusion, and mumbled/slurred speech for over 3 days. No focal strength deficits. CT of the head is without acute findings and on exam does not have localizable neurologic symptoms. He has not had unilateral deficits or facial droop. Patient is on multiple medications with which he is compliant, has not had hypotensive episodes but is concerned that symptoms could be related to his antihypertensives. Recently started amio, olmasartan, metoprolol, and isosorbide. On admission patient has been hypoglycemic since 62, symptoms did not improve with truce however recheck remained with low blood sugar. Patient just completed a meal, and has some juice with recheck BSG pending. Differential includes medication induced, unclear why patient was on amiodarone? Arrhythmia during his admission records are pending; orthostatic although low suspicion for this due to persistent symptoms Pastora normal blood pressure formal orthostatics are pending; hypoglycemic with treatment of blood sugar/dextrose pending and patient switched to inpatient controlled insulin during admission and dose reduced to 5 BID basal (was not using insulin as directed at home as noted). If patient is persistently hypoglycemic will initiate temporary D10 drip to maintain BSG within goal he shows no signs of infectious encephalopathy at time of evaluation. Stroke with lower suspicion with no territorial/focal sx however if no improvement with above eval --> f/u MRI, has had some past concern for TIAs. Will continue broad workup and agree with assessment and management above PG Care Time/CCT Total # of Minutes Spent Total Time Spent with Patient: Total time spent is greater than 50% in coordination of care (as documented) at patient's floor/unit and/or counseling patient: [place] [address] INT INP/OBS CARE 2/55MIN Patient Type New History Comprehensive Exam Comprehensive Medical Decision Making Moderate Complexity Diagnoses Dizziness R42 Type 2 diabetes mellitus E11.9 Hypertension I10 Hyperlipidemia E78.5 History of heart bypass surgery Z95.1
[2023-11-01 15:11] LABS: Influenza A virus by PCR Negative (Neg); Influenza B virus by PCR Negative (Neg); RSV by PCR Negative (Neg); SARS CoV2 RNA(COVID-19) Ceph NEGATIVE (Negative)
--- NOTE | 2023-11-01 16:30 | Electrocardiogram Report ---
Test Reason : Blood Pressure : / mmHG Vent. Rate : 067 BPM Atrial Rate : 067 BPM P-R Int : 186 ms QRS Dur : 080 ms QT Int : 376 ms P-R-T Axes : 045 -31 232 degrees QTc Int : 397 ms Normal sinus rhythm Possible Left atrial enlargement Left axis deviation Abnormal ECG When compared with ECG of 11-SEP-2022 15:33, Nonspecific T wave abnormality now evident in Inferior leads T wave inversion now evident in Anterolateral leads Confirmed by Dax Kothari ([id number]) on 11/01/2023 4:30:25 PM Referred By: REFERRED SELF Confirmed By:Dax Kothari
[2023-11-01] MEDS ORDERED: ACETAMINOPHEN 325 MG TAB PO PRN (17:55)
[2023-11-01] MEDS ORDERED: GLUCOSE 10 TAB/TUBE PO PRN (17:55)
[2023-11-01] MEDS ORDERED: CARBOHYDRATES FOR HYPOGLYCEMIA PO PRN (17:55)
[2023-11-01] MEDS ORDERED: PHARMACY GLYCEMIC MGMT CONSULT PRN (17:55)
[2023-11-01] MEDS ORDERED: GLUCOSE 40% GEL 15 GM TUBE PO PRN (17:55)
[2023-11-01] MEDS ORDERED: GLUCAGON FOR INJ 1 MG VIAL SQ PRN (17:55)
[2023-11-01] MEDS ORDERED: DEXTROSE 50% 50 ML SYRINGE IV PRN (17:55)
[2023-11-01] MEDS ORDERED: INSULIN ASPART PER UNIT CHARGE ONE (18:15)
[2023-11-01] MEDS: INSULIN ASPART PER UNIT CHARGE SC SCH ×2 (18:18→20:48)
[2023-11-01] MEDS: ENOXAPARIN INJ 40 MG/0.4 ML SYR SQ SCH (19:36)
[2023-11-01] MEDS: METOPROLOL TARTRATE 25 MG TAB PO SCH (20:47)
[2023-11-01] MEDS: ROSUVASTATIN CALCIUM 10 MG TAB PO SCH (20:47)
[2023-11-01] MEDS ORDERED: LANTUS PER UNIT CHARGE SQ SCH (21:00)
--- OUTSIDE RECORDS SUMMARY | 2023-11-02 00:31 | External Medical Summary | Summary of Care ---
Author Name Unknown Organization [facility] Address [address] [place] [address] Phone [phone] Care Team Providers Care Kettle Hand Name Role Phone Dax Nathan MD Primary Care Provider [phone] Reason for Visit * Reason Onset Date Comments Test Results 10/25/2023 Encounter Details Date Type Department Care Team (Late st Contact Info) Description 10/25/2023 Telephone Neurology [facility] [address] [place] [address] Flora Spencer MD [address] [place] [address] Test Results Allergies Active Allergy Reactions Criticality Noted Date Comments Dulaglutide 09/28/2023 documented as of this encounter (statuses as of 10/26/2023) Medications Medication Sig Dispensed Refills Start Date End Date Status Fluocinonide 0.05 % External Cream Apply topically to affected area 2 times a day . Apply 2x daily 0 Active Insulin Glargine Solostar 100 UNIT/ML Subcutaneous Solution Pen-injector (Basaglar KwikPen) Inject under the skin . 0 Active Olmesartan Medoxomil 40 MG Oral Tablet (Benicar) Take 1 Tablet by mouth in the morning. 30 Tablet 3 10/09/2023 Active Amiodarone HCl 200 MG Oral Tablet (Cordarone) Take 1 Tablet by mouth in the morning. 30 Tablet 0 10/10/2023 Active amLODIPine Besylate 5 MG Oral Tablet (Norvasc) Take 1 Tablet by mouth in the morning. 30 Tablet 3 10/10/2023 Active Famotidine 20 MG Oral Tablet (Pepcid) Take 1 Tablet by mouth in the morning. 30 Tablet 0 10/10/2023 Active Furosemide 40 MG Oral Tablet (Lasix) Take 1 Tablet by mouth in the morning. 30 Tablet 0 10/10/2023 Active Metoprolol Tartrate 25 MG Oral Tablet (Lopressor) Take 1 Tablet by mouth in the morning and 1 Tablet before bedtime. 60 Tablet 3 10/09/2023 Active Potassium Chloride ER 10 MEQ Oral Tablet Extended Release Take 2 Tablets by mouth in the morning. 60 Tablet 0 10/09/2023 Active Rosuvastatin Calcium 10 MG Oral Tablet (Crestor) Take 1 Tablet by mouth every afternoon. 30 Tablet 3 10/09/2023 Active Aspirin 81 MG Oral Capsule Take 81 mg by mouth in the morning. 30 Capsule 3 10/09/2023 Active metFORMIN HCl 500 MG Oral Tablet (Glucophage) two tablets in the am and one tablet in the pm 90 Tablet 3 10/09/2023 Active NovoLOG FlexPen 100 UNIT/ML Subcutaneous Solution Pen-injector (insulin aspart) Inject 3 Units under the skin in the morning and 3 Units at noon and 3 Units in the evening. Inject with meals. Plus sliding scale 1:50>150. Maximum daily dose 30 units. E 11.9. 15 mL 3 10/09/2023 Active oxyCODONE HCl 5 MG Oral Tablet (Oxy IR) Take 1 Tablet by mouth every 4 hours as needed for Pain, Severe. 10 Tablet 0 10/09/2023 Active Losartan Potassium 100 MG Oral Tablet (Cozaar) Take 1 Tablet by mouth in the morning. 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 09/28/2023 Type 2 diabetes mellitus wit h hemoglobin A1c goal of less than 7.0% 11/06/2003 Overview: ICD-10 update of inactive term documented as of this encounter (statuses as of 10/26/2023) Social History Tobacco Use Types Packs/Day Years Used Date Smoking Tobacco: Never Alcohol Use Standard Drinks/Week Comments No 0 (1 standard drink = 0.6 oz pur e alcohol) very rarely Sex and Gender Information Value Date Recorded Sex Assigned at Male 10/17/2023 8:37 AM EST Gender Identity Not on file Sexual Orientation Not on file Job Start Date Occupation Industry Not on file Not on file Not on file documented as of this encounter Functional Status Functional Status Response Date of Assess ment Are you deaf or do you have serious difficulty h earing? No 09/28/2023 Are you blind or do you have serious difficulty seeing, even when wearing glasses? Yes 09/28/2023 Do you have serious difficul ty walking or climbing stairs? (5 years old or older) No 09/28/2023 Do you have difficulty dress ing or bathing? (5 years old or older) No 09/28/2023 Because of a physical, menta l, or emotional condition, do you have difficulty doing errands alone such as visiting a doctor s office or shopping? (15 years old or older) No 09/28/20 Cognitive Status Response Date of Assessm ent Because of a physical, menta l, or emotional condition, do you have serious difficulty concentrating, remembering, or making decisions? (5 years old or older) No 09/28/2023 documented as of this encounter Miscellaneous Notes * Telephone Encounter - Luz Rodriguez, MED ASSIST - 10/25/2023 1:58 PM EST Do not see any signed release to give information to pt's daughter. I will send pt a MyG to make him aware and he can give info to daughter * Telephone Encounter - Flora Spencer MD - 10/25/2023 8:09 AM EST Call pt's daughter; goes by Suzan-she is a physician; thyroid is low; should be corrected by pcp; besure there is a signed release documented in this encounter Plan of Treatment Upcoming Encounters Date Type Department Care Team (Late st Contact Info) Description 11/01/2023 5:10 PM EST Anticoagulation Pharmacy, [facility] [address] [facility] [place] [address] [facility] [address] [facility] [place] [address] 11/05/2023 11:00 AM EST Office Visit Cardiology, [facility] [address] [facility] [place] [address] Salo Mclaughlin DO [address] [facility] [place] [address] 11/07/2023 11:30 AM EST Office [facility] [place] [address] [place] [address] Yaya Arce MD [address] [place] [address] 11/26/2023 12:45 PM EST NeuroDiagnostic Study Neurophysiology [facility] [address] [place] [address] Blanco Cartagena MD [address] [facility] [place] [address] 12/03/2023 8:40 AM EST Telemedicine Endocrinology, [place] [address] [place] [facility] [place] [address] Hany Hernández MD [address] [place] [address] 01/02/2024 9:20 AM EST Telemedicine Neurology [facility] [address] [place] [address] Virgie Louis PA-C [address] [place] [address] Health Maintenance Due Date Last Done Comments Depression Screening 1954 Albumin/Creatinine Ratio 01/31/1960 Diabetic Foot Exam 01/31/1960 DTaP,Tdap,and Td Vaccines (1 - Tdap) 1961 Hepatitis B (1 of 3 - Risk 3-dose series) 2002 Influenza Vaccine (FLU shot) (#1) 2023 07/15/2022, 06/29/2021 Diabetic Eye Exam 02/23/2024 02/22/2023 HbA1c 03/30/2024 09/29/2023, 09/04/2023 GFR 10/24/2024 10/24/2023, 09/29, 10/13/2023, Additional history exists Pneumococcal Vaccine: 65+ Years Completed 08/30/2015, 01/17/2012 Zoster Vaccines Completed 01/14/2022, 10/2021, 08/13/2021, Additional history exists COVID-19 Vaccine Completed 08/04/2023, , 07/15/2022, Additional history exists GARDASIL-HPV IMMUNIZATION SERIES Aged Out No longer eligible based on patient's age to complete this topic MENINGOCOCCAL (MENACTRA/MENVEO) Aged Out No longer eligible based on patient's age to complete this topic documented as of this encounter Medical Devices Implanted Type Area Cabinet Maker Device Identifier Shelf Expiration Date Model / Serial / Lot Marker Coronary - [id number] Implanted:Qty: 1 on 10/01/2023 by Yaya Arce [place] [facility]: Heart [employer] 06/28/2026 [facility] / / [id number] documented as of this encounter Advance Directives Latest Code Status on File Code Status Date Activated Date Inactivated Comments Full Code 10/01/2023 6:22 PM 10/09/2023 7:22 PM This order reflects the patients wishes and were consensually agreed upon. Question Answer Comments Discussion of Advance Directives occurred with: Patient Code Status History Code Status Date Activated Date Inactivated Comments Full Code 09/28/2023 3:40 PM 10/01/2023 6:22 PM This order reflects the patients wishes and were consensually agreed upon. Question Answer Comments Discussion of Advance Directives occurred with: Not Discussed due to patient's condition Care Teams Kettle Hand Relationship Specialty Start Date End Date Pro, Dax Hendrix MD [address] [place] [address] PCP - General Internal Medicine 04/24/22 documented as of this encounter
--- OUTSIDE RECORDS SUMMARY | 2023-11-02 00:32 | External Medical Summary | Summary of Care ---
Author Name Unknown Organization [facility] Address [address] [place] [address] Phone [phone] Care Team Providers Care Program Manufacturing Leader Name Role Phone Dax Nathan MD Primary Care Provider [phone]- [phone] Reason for Visit * Reason Comments Follow Up Encounter Details Date Type Department Care Team (Late st Contact Info) Description 10/24/2023 1:40 PM EST Office Visit Neurology [facility] [address] [facility] [place] [address] Flora Spencer MD [address] [place] [address] Brain atrophy (HCC)*; Gait abnormality; Progressive focal motor weakness; Dysarthria; Polyneuropathy Allergies Active Allergy Reactions Criticality Noted Date Comments Dulaglutide 09/28/2023 documented as of this encounter (statuses as of 10/24/2023) Medications Medication Sig Dispensed Refills Start Date [...] as of this encounter (statuses as of 10/24/2023) Active Problems Problem Noted Date Diagnosed Date S/P CABG x 5 10/05/2023 Atrial fibrillation, unspecified type 10/05/2023 Malnutrition of moderate degree 10/03/2023 Coronary artery disease of n ative artery of [place] heart with stable angina pectoris 09/28/2023 Type 2 diabetes mellitus wit h hemoglobin A1c goal of less than 7.0% 11/06/2003 Overview: ICD-10 update of inactive term documented as of this encounter (statuses as of 10/24/2023) Social History Tobacco Use Types Packs/Day Years [...] on file documented as of this encounter Last Filed Vital Signs Vital Sign Reading Time Taken Comments Blood Pressure 102/62 10/24/2023 1:22 PM EST Pulse 68 10/24/2023 1:22 PM EST Temperature 36.6 C (97.8 F) 10/24/2023 1:22 PM ES T Respiratory Rate 16 10/24/2023 1:22 PM EST Oxygen Saturation 97% 10/24/2023 1:22 PM EST Inhaled Oxygen Concentration - - Weight - - Height - - Body Mass Index - - documented in this encounter Functional Status Functional Status Response [...] No 09/28/2023 documented as of this encounter Progress Notes * Flora Spencer MD - 10/24/2023 2:26 PM EST Progress Note - Neurology [address] [address] NAME: Boubacar Brunner Date of : 1940 Date of Visit: 10/24/23 Chief Complaint: Chief Complaint Patient presents with Follow Up Subjective: This 83-year-old is seen in follow-up for balance disorder. Timing is ongoing. Context is that of a gentleman who ambulated without difficulty until he had his bypass surgery. Had a quintuple bypass under heart lung. Since that time he has had difficulty ambulating due to weakness. He is now in encounter. This is rated severe in that he is unable to walk unassisted. He can walk with awalker with 1 teacher assistant at the moment and this has been a fairly impressive gain due to his rehab hospitalization. This is an accompanying dysarthria. There is also an accompanying inability to see properly (he has been receiving injections before the surgery to into his eyes, which may indicate he has macular degeneration). He is in line to see an tankerman soon. He has also been found to have rather significant brain atrophy. This was described on an MRI of the brain in 1999 at which time he presented with vertigo. 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 His daughter,a physician, is at the visit with him. She feels that he has not had a significant cognitive decline aside from the possibility of a temporary brain dysfunction. Neuro ROS: neg for stoke sx HOME MEDICATIONS : Current Outpatient Medications Medication Sig Dispense Refill Fluocinonide 0.05 % External Cream Apply topically to affected area 2 times a day . Apply 2x daily Insulin Glargine Solostar 100 UNIT/ML Subcutaneous Solution Pen-injector (NeuroSkyriki Lomax) Inject under the skin . Olmesartan Medoxomil 40 MG Oral Tablet (Benicar) Take 1 Tablet by mouth in the morning. 30 Tablet 3 Amiodarone HCl 200 MG Oral Tablet (Cordarone) Take 1 Tablet by mouth in the morning. 30 Tablet 0 amLODIPine Besylate 5 MG Oral Tablet (Norvasc) Take 1 Tablet by mouth in the morning. 30 Tablet 3 Famotidine 20 MG Oral Tablet (Pepcid) Take 1 Tablet by mouth in the morning. 30 Tablet 0 Furosemide 40 MG Oral Tablet (Lasix) Take 1 Tablet by mouth in the morning. 30 Tablet 0 Metoprolol Tartrate 25 MG Oral Tablet (Lopressor) Take 1 Tablet by mouth in the morning and 1 Tablet before bedtime. 60 Tablet 3 Potassium Chloride ER 10 MEQ Oral Tablet Extended Release Take 2 Tablets by mouth in the morning. 60 Tablet 0 Rosuvastatin Calcium 10 MG Oral Tablet (Crestor) Take 1 Tablet by mouth every afternoon. 30 Tablet 3 Aspirin 81 MG Oral Capsule Take 81 mg by mouth in the morning. 30 Capsule 3 metFORMIN HCl 500 MG Oral Tablet (Glucophage) two tablets in the am and one tablet in the pm 90 Tablet 3 NovoLOG FlexPen 100 UNIT/ML Subcutaneous Solution Pen-injector (insulin aspart) Inject 3 Units under the skin in the morning and 3 Units at noon and 3 Units in the evening. Inject with meals. Plus sliding scale 1:50>150. Maximum daily dose 30 units. E 11.9. 15 mL 3 oxyCODONE HCl 5 MG Oral Tablet (Oxy IR) Take 1 Tablet by mouth every 4 hours as needed for Pain, Severe. 10 Tablet 0 Losartan Potassium 100 MG Oral Tablet (Cozaar) Take 1 Tablet by mouth in the morning. No current facility-administered medications for this visit. Review of patient's allergies indicates: Allergen Reactions Dulaglutide PHYSICAL EXAMINATION: Vital Signs: BP 102/62 (BP Site: Left Arm, BP Position: Sitting, BP Cuff Size: Regular) | Pulse 68 | Temp 36.6 C (97.8 F) (Tympanic) | Resp 16 | SpO2 97% EXAM: Constitutional: appearance normally developed, well nourished and non-obeseHead and Face: normocephalic and atraumatic;no carotid bruit; PVE shows full pulses, and no edema; Cardiovascular: heart sounds are normal. Rhythm is sinus NEUROLOGIC EXAM Higher integrative intact to orientation, fund 3/3, memory, and abstraction. Cranial Nerves: CN 2 - no visual defect on confrontation and pupils round, equal, reactive to light CN 3, 4, 6 - extra-ocular movements intact and no nystagmus CN 7 - no facial asymmetry CN 9, 10 - palate symmetric CN 12 - tongue midline Motor: Normal, without pronator drift, with EHLs 4/5, foot musculature loss. Coordination: Normal finger to nose and rapid alternating movement of lower extremities Gait rises with minimal assistance, but flings lower extremities in attempt to walk. Proprioception is "C". He has a moderate dysarthria, with hesitation in word finding IMPRESSION / PLAN: I believe his gait abnormality is multifactorial, based on deconditioning and peripheral neuropathy. There may be a central component tinnitus but this remains to be seen. I am proceeding with blood studies for the workup of peripheral neuropathy aside from the obvious diabetes, as well or well as ordering a CPK and anti acetylcholine receptor antibody. He is going to continue physical therapy. The cortical atrophy is perplexing. Based on a report of several years ago this is likely longstanding but this patient is extremely high cognitive ability. EEG will be helpful as well as follow-up in 2 months. Progress Note - Neurology [facility] [address] [place] [address] NAME: Boubacar Brunner Date of : 1940 Date of Visit: 10/24/23 Chief Complaint: Chief Complaint Patient presents with Follow Up Subjective: see above Neuro ROS: neg for stoke sx HOME MEDICATIONS : Current Outpatient Medications Medication Sig Dispense Refill Fluocinonide 0.05 % External Cream Apply topically to affected area 2 times a day . Apply 2x daily Insulin Glargine Solostar 100 UNIT/ML Subcutaneous Solution Pen-injector (SportsBlog.comikPen) Inject under the skin . Olmesartan Medoxomil 40 MG Oral Tablet (Benicar) Take 1 Tablet by mouth in the morning. 30 Tablet 3 Amiodarone HCl 200 MG Oral Tablet (Cordarone) Take 1 Tablet by mouth in the morning. 30 Tablet 0 amLODIPine Besylate 5 MG Oral Tablet (Norvasc) Take 1 Tablet by mouth in the morning. 30 Tablet 3 Famotidine 20 MG Oral Tablet (Pepcid) Take 1 Tablet by mouth in the morning. 30 Tablet 0 Furosemide 40 MG Oral Tablet (Lasix) Take 1 Tablet by mouth in the morning. 30 Tablet 0 Metoprolol Tartrate 25 MG Oral Tablet (Lopressor) Take 1 Tablet by mouth in the morning and 1 Tablet before bedtime. 60 Tablet 3 Potassium Chloride ER 10 MEQ Oral Tablet Extended Release Take 2 Tablets by mouth in the morning. 60 Tablet 0 Rosuvastatin Calcium 10 MG Oral Tablet (Crestor) Take 1 Tablet by mouth every afternoon. 30 Tablet 3 Aspirin 81 MG Oral Capsule Take 81 mg by mouth in the morning. 30 Capsule 3 metFORMIN HCl 500 MG Oral Tablet (Glucophage) two tablets in the am and one tablet in the pm 90 Tablet 3 NovoLOG FlexPen 100 UNIT/ML Subcutaneous Solution Pen-injector (insulin aspart) Inject 3 Units under the skin in the morning and 3 Units at noon and 3 Units in the evening. Inject with meals. Plus sliding scale 1:50>150. Maximum daily dose 30 units. E 11.9. 15 mL 3 oxyCODONE HCl 5 MG Oral Tablet (Oxy IR) Take 1 Tablet by mouth every 4 hours as needed for Pain, Severe. 10 Tablet 0 Losartan Potassium 100 MG Oral Tablet (Cozaar) Take 1 Tablet by mouth in the morning. No current facility-administered medications for this visit. Review of patient's allergies indicates: Allergen Reactions Dulaglutide PHYSICAL EXAMINATION: Vital Signs: BP 102/62 (BP Site: Left Arm, BP Position: Sitting, BP Cuff Size: Regular) | Pulse 68 | Temp 36.6 C (97.8 F) (Tympanic) | Resp 16 | SpO2 97% EXAM: Constitutional: appearance normally developed, well nourished and non-obeseHead and Face: normocephalic and atraumatic Cardiovascular: heart sounds are normal. Rhythm is sinus NEUROLOGIC EXAM Higher integrative is obviously intact. Cranial Nerves: CN 2 - no visual defect on confrontation and pupils round, equal, reactive to light CN 3, 4, 6 - extra-ocular movements intact and no nystagmus CN 7 - no facial asymmetry CN 9, 10 - palate symmetric CN 12 - tongue midline Motor: Normal, without pronator drift Coordination: Normal finger to nose and rapid alternating movement of lower extremiti IMPRESSION / PLAN: HISTORY AND PHYSICAL EXAMINATION [place] [address] NAME: Boubacar Brunner Date of : 1940 Date of Visit: 10/24/23 Chief Complaint: Chief Complaint Patient presents with Follow Up HPI: Boubacar Brunner is a 83 year old male presenting with gait abnl HOME MEDICATIONS : Current Outpatient Medications Medication Sig Dispense Refill Fluocinonide 0.05 % External Cream Apply topically to affected area 2 times a day . Apply 2x daily Insulin Glargine Solostar 100 UNIT/ML Subcutaneous Solution Pen-injector (Basaglar KwikPen) Inject under the skin . Olmesartan Medoxomil 40 MG Oral Tablet (Benicar) Take 1 Tablet by mouth in the morning. 30 Tablet 3 Amiodarone HCl 200 MG Oral Tablet (Cordarone) Take 1 Tablet by mouth in the morning. 30 Tablet 0 amLODIPine Besylate 5 MG Oral Tablet (Norvasc) Take 1 Tablet by mouth in the morning. 30 Tablet 3 Famotidine 20 MG Oral Tablet (Pepcid) Take 1 Tablet by mouth in the morning. 30 Tablet 0 Furosemide 40 MG Oral Tablet (Lasix) Take 1 Tablet by mouth in the morning. 30 Tablet 0 Metoprolol Tartrate 25 MG Oral Tablet (Lopressor) Take 1 Tablet by mouth in the morning and 1 Tablet before bedtime. 60 Tablet 3 Potassium Chloride ER 10 MEQ Oral Tablet Extended Release Take 2 Tablets by mouth in the morning. 60 Tablet 0 Rosuvastatin Calcium 10 MG Oral Tablet (Crestor) Take 1 Tablet by mouth every afternoon. 30 Tablet 3 Aspirin 81 MG Oral Capsule Take 81 mg by mouth in the morning. 30 Capsule 3 metFORMIN HCl 500 MG Oral Tablet (Glucophage) two tablets in the am and one tablet in the pm 90 Tablet 3 NovoLOG FlexPen 100 UNIT/ML Subcutaneous Solution Pen-injector (insulin aspart) Inject 3 Units under the skin in the morning and 3 Units at noon and 3 Units in the evening. Inject with meals. Plus sliding scale 1:50>150. Maximum daily dose 30 units. E 11.9. 15 mL 3 oxyCODONE HCl 5 MG Oral Tablet (Oxy IR) Take 1 Tablet by mouth every 4 hours as needed for Pain, Severe. 10 Tablet 0 Losartan Potassium 100 MG Oral Tablet (Cozaar) Take 1 Tablet by mouth in the morning. No current facility-administered medications for this visit. Review of patient's allergies indicates: Allergen Reactions Dulaglutide Past Medical History: Diagnosis Date DM type 2, goal A1c below 7 02/2002 symptoms of weight loss, frequency for 4-5 m HGbA1C 11.4 Past Surgical History: Procedure Laterality Date CABG, ARTERIAL, SINGLE N/A 10/01/2023 CORONARY ARTERY BYPASS GRAFT USING ARTERY 1 GRAFT performed by Yaya Arce MD at [facility] MISCELLANEOUS ORDER 1998 repair left shoul;alex tendon tear Family History Problem Relation Age of Onset Diabetes Grandfather (Maternal) Diabetes Grandfather (Paternal) Diabetes Sister Diabetes Brother 2 older brothers Glaucoma None Eye Problems None Denies family history Social History Socioeconomic History Marital status: Spouse name: James Shepard Number of children: 2 Years of education: 20+ Highest education level: Not on file Occupational History Occupation: Mechanical and EE Employer: [employer] Tobacco Use Smoking status: Never Smokeless tobacco: Not on file Substance and Sexual Activity Alcohol use: No Comment: very rarely Drug use: No Sexual activity: Not on file Other Topics Concern Not on file Social History Narrative Not on file Social Determinants of Health Financial Resource Strain: Not on file Food Insecurity: Not on file Transportation Needs: Not on file Physical Activity: Not on file Stress: Not on file Social Connections: Not on file Intimate Partner Violence: Not on file Housing Stability: Not on file ROS: PHYSICAL EXAMINATION: Vital Signs: BP 102/62 (BP Site: Left Arm, BP Position: Sitting, BP Cuff Size: Regular) | Pulse 68 | Temp 36.6 C (97.8 F) (Tympanic) | Resp 16 | SpO2 97% EXAM: Constitutional: appearance normally developed, with no deformities Heart sounds are normal Examination of the peripheral vascular system by observation does not reveal varicosity or edema. Palpation reveals normal pulses and temperature Carotid arteries reveal no bruit. NEUROLOGIC EXAMINATION: Appearance: no acute distress Opthalmoscopic: disc flat, normal fundus The patient has obviously intact higher integrative functioning to orientation, language, fund of knowledge, attention to the examiner, and memory Speech: no dysarthria Cranial Nerves: CN 2 - no visual defect on confrontation. CN 3, 4, 6 - extra-ocular movements intact and no nystagmus; with round pupils appropriately reactive to light and accomodation CN 5 - facial sensation intact CN 7 - no facial asymmetry CN 8 - intact hearing CN 9, 10 - palate symmetric CN 11 - good shoulder shrug CN 12 - tongue midline Gait and station: normal Coordination: normal finger to nose testing and rapid alternating movements of the lower extremities. No tremor is seen. Sensory: intact to light touch and pain Muscle Tone: normal Muscle exam:Nl in all extremities without pronator drift. Reflexes: IMPRESSION / PLAN Flora Spencer MD documented in this encounter Nursing Notes * Mariama Reyes LPN - 10/24/2023 1:22 PM EST Patient verified identity by spelling of last name and date. Chief Complaint Patient presents with Follow Up documented in this encounter Plan of Treatment Upcoming Encounters Date Type Department Care Team (Late st Contact Info) Description 10/25/2023 12:30 PM EST Telemedicine Cardiothoracic Surg [facility], [place] [address] [place] [address] Samuel Prado PA-C [address] [place] [address] 10/25/2023 5:10 PM EST [facility]tico[facility], [facility] [address] [facility] [address] [facility] [address] [place] [address] 11/05/2023 11:00 AM EST Office Visit Cardiology, [facility] [address] [place] [address] Salo Mclaughlin DO [address] [place] [address] 11/07/2023 11:30 AM EST Office Visit Cardi[facility]oracic [facility]urg [facility], [address] [address] Yaya Arce MD [address] [place] [address] 11/26/2023 12:45 PM EST NeuroDiagnostic Study Neurophysiology [facility] [place] [address] [facility] [place] [address] Blanco Cartagena MD [address] [place] [address] 12/03/2023 8:40 AM EST Telemedicine Endocrinology, [place] [address] [place] [address] Hany Hernández MD [address] [facility] [place] [address] 01/02/2024 9:20 AM EST Telemedicine Neurology [facility] [place] [address] [place] [address] Virgie Louis PA-C [address] [place] [address] Pending Results Name Type Priority Associated Diagnoses Date /Time VITAMIN B12 Lab Routine Polyneuropathy 10/24/2023 3:01 PM EST TSH Lab Routine Polyneuropathy 10/24/2023 3:01 PM EST ANTINUCLEAR ANTIBODY (BERTA) EIA SCREEN WITH REFLEX AB QUANT Lab Routine Polyneuropathy 10/24/2023 3:01 PM EST SERUM PROTEIN ELECTROPHORESIS REFLEX PROFILE Lab Routine Polyneuropathy 10/24/2023 3:01 PM EST ACETYLCHOLINE RECEPTOR BINDING ANTIBODY Lab Routine Progressive focal motor weakness 10/24/2023 3:01 PM EST LYME DISEASE ANTIBODY SCREEN WITH REFLEX TO CONFIRMATION Lab Routine Polyneuropathy 10/24/2023 3:01 PM EST CK Lab Routine Progressive focal motor weakness 10/24/2023 3:01 PM EST ANTINUCLEAR ANTIBODY (BERTA) SCREEN, CAMILO Lab Routine Polyneuropathy 10/24/2023 3:01 PM EST Scheduled Orders Name Type Priority Associated Diagnoses Orde r Schedule EEG ROUTINE Procedures Routine Brain atrophy (HCC) Ordered: 10/24/2023 LYME DISEASE ANTIBODY SCREEN WITH REFLEX TO CONFIRMATION Lab Routine Polyneuropathy Expected: 10/24/2023, Expires: 10/24/2024 Health Maintenance Due Date Last Done Comments [...] this encounter Medical Devices Implanted Type Area Die Maintenance Technician Device Identifier Shelf Expiration Date Model / Serial / Lot Marker Coronary - [id number] Implanted:Qty: 1 on 10/01/2023 by Yaya Arce MD at [facility] N/A: Heart [employer] 06/28/2026 [facility] / / [id number] documented as of this encounter Visit Diagnoses Diagnosis Brain atrophy (HCC)- Primary Cerebral degeneration, unspecified Gait abnormality Abnormality of gait Progressive focal motor weakness Muscle weakness (generalized) Dysarthria Polyneuropathy Unspecified hereditary and idiopathic peripheral neuropathy documented in this encounter Advance Directives Latest Code Status [...] Discussed due to patient's condition Care Teams Program Manufacturing Leader Relationship Specialty Start Date End Date Pro, Dax Hendrix MD [address] [facility], [place] [address] PCP - General Internal Medicine 04/24/22 documented as of this encounter
--- OUTSIDE RECORDS SUMMARY | 2023-11-02 00:32 | External Medical Summary ---
Author Name Unknown Address Unknown Organization : Laboratory Report Ordering Provider Test Date Status RAYNA MORRIS 10/24/2023 15:01:32 Final Observation Date Value Abnormality Reference (Units ) Status ACETYLCHOLINE REC BIND AB 10/24/2023 15:01:32 <0.30 (nmol/L) Final Reference Ranges for Acetylc holine Receptor
Binding Antibody:
Negative: < or =0.30 nmol/L
Equivocal: 0.31-0.49 nmol/L
Positive: > or =0.50 nmol/L
Test performed by [facility]
[address] [facility] [place] [address]

Cat Hooker: Tram Bustillo MD,PHD,BRITTON
Test Reported by [facility],
[facility],
[address] [place], [place]
Jovani Cabral M.D., Ph.D., Director of Laboratories
, [place] [id number] Performing Location
--- OUTSIDE RECORDS SUMMARY | 2023-11-02 00:32 | External Medical Summary | Summary of Care ---
Author Name Unknown Organization [facility] Address [address] [place] [address] Phone [phone] Care Team Providers Care Auto Camp Attendant Name Role Phone ProDax MD Primary Care Provider +1- [phone] Reason for Visit * Reason Onset Date Comments abnormal imaging study 10/23/2023 Test Results 10/23/2023 Encounter Details Date Type Department Care Team (Late st Contact Info) Description 10/23/2023 Telephone Neurology [facility] [address] [place] [address] Services, Scheduling [address] [place] [address] abnormal imaging study; Test Results Allergies Active Allergy Reactions Criticality Noted Date Comments Dulaglutide 09/28/2023 documented as of this encounter (statuses as of 10/26/2023) Medications Medication Sig Dispensed Refills Start Date End Date Status Fluocinonide 0.05 % External Cream Apply topically to affected area 2 times a day . Apply 2x daily 0 Active Insulin Glargine Solostar 100 UNIT/ML Subcutaneous Solution Pen-injector (Basaglfrancisco Lomax) Inject under the skin . 0 Active [...] artery disease of n ative artery of [place] heart with stable angina pectoris 09/28/2023 Type [...] encounter Miscellaneous Notes * Telephone Encounter - Flora Spencer MD - 10/26/2023 12:04 PM EST Call pt/daughter: SPEP shows albumin sl down, perhaps related to decreased nutrition, but no abnl protein * Telephone Encounter - Ana Laura Santos OSA - 10/23/2023 4:28 PM EST Pts beginning can her Husbands MRI be reviewed ANYI before he leave [facility] . MRI referral was placed by [facility] PT is scheduled tomorrow with Dr Spencer Also informed via a message the facility and Pts was calling as well to the facility to let them now about this appt. documented in this encounter Plan of Treatment Upcoming Encounters Date Type Department Care Team (Late st Contact Info) Description 11/01/2023 5:10 PM EST Anticoagulation Pharmacy, [facility] [address] [place] [address] [facility] [address] [facility] [place] [address] 11/05/2023 11:00 AM EST Office Visit Cardiology, [facility] 132 [facility] [place] [address] Salo Mclaughlin DO [address] [facility] [place] [address] 11/07/2023 11:30 AM EST Office Visit Cardiothoracic Surg [facility], [place] [address] [place] [address] Yaya Arce MD [address] [place] [address] 11/26/2023 12:45 PM EST NeuroDiagnostic Study Neurophysiology [facility] [address] [place] [address] Blanco Cartagena MD [address] [place] [address] 12/03/2023 8:40 AM EST Telemedicine Endocrinology, [place] [address] [place] [address] Hany Hernández MD [address] [place] [address] 01/02/2024 9:20 AM EST Telemedicine Neurology [facility] [address] [place] [address] Virgie Louis PA-C [address] [place] [address] Health Maintenance Due Date Last Done Comments [...] this encounter Medical Devices Implanted Type Area Water/Wastewater Project Manager Device Identifier Shelf Expiration Date Model / Serial / Lot Marker Coronary - [id number] Implanted:Qty: 1 on 10/01/2023 by Yaya Arce MD at [place] [facility] N/A: Heart [employer] 06/28/2026 [facility] / / [id number] documented as of this encounter Advance Directives [...] Discussed due to patient's condition Care Teams Auto Camp Attendant Relationship Specialty Start Date End Date Pro, Dax Hendrix MD [address] [place] [address] PCP - General Internal Medicine 04/24/22 documented as of this encounter
--- OUTSIDE RECORDS SUMMARY | 2023-11-02 00:32 | External Medical Summary | Summary of Care ---
Author Name Unknown Organization [facility] Address [address] [place] [address] Phone [phone] Care Team Providers Care Template Maker Name Role Phone Pro, Dax Hendrix MD Primary Care Provider +1- [phone] Reason for Visit * Reason Comments Outpatient Testing Encounter Details Date Type Department Care Team (Late st Contact Info) Description 10/24/2023 3:20 PM EST Laboratory Laboratory [facility] [address] [place] [id number] [facility] [address] [place] [address] Polyneuropathy Allergies Active Allergy Reactions Criticality Noted Date Comments Dulaglutide 09/28/2023 documented as of this encounter (statuses as of 10/24/2023) Medications Medication Sig Dispensed Refills Start Date End Date Status Fluocinonide 0.05 % External Cream Apply topically to affected area 2 times a day . Apply 2x daily 0 Active Insulin Glargine Solostar 100 UNIT/ML Subcutaneous Solution Pen-injector (Basaglar KwalycePen) Inject under the skin . 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 09/28/2023 Type [...] No 09/28/2023 documented as of this encounter Plan of Treatment Upcoming Encounters Date Type Department Care Team (Late st Contact Info) Description 10/25/2023 12:30 PM EST Telemedicine Cardiothoracic Surg [facility] [address] [place] [address] Samuel Prado PA-C [address] [place] [address] 10/25/2023 5:10 PM EST Anticoagulation Pharmacy, [facility] [address] [facility] [place] [address] [facility] 132 [facility] [place] [address] 11/05/2023 11:00 AM EST Office Visit Cardiology, [facility] [address] [place] [address] Salo Mclaughlin DO [address] [place] [address] 11/07/2023 11:30 AM EST Office Visit Cardiothoracic Surg [facility] [place] [address] [place] [address] Yaya Arce MD [address] [place] [address] 11/26/2023 12:45 PM EST NeuroDiagnostic Study Neurophysiology [facility] [address] [place] [address] Blanco Cartagena MD [address] [place] [address] 12/03/2023 8:40 AM EST Telemedicine Endocrinology, [place] [address] [place] [address] Hany Hernández MD [address] [place] [address] 01/02/2024 9:20 AM EST Telemedicine Neurology [facility] [address] [facility] [place] [address] Virgie Louis PA-C [address] [facility] [place] [address] Pending Results Name Type Priority Associated Diagnoses Date /Time LYME DISEASE ANTIBODY SCREEN WITH REFLEX TO CONFIRMATION Lab Routine Polyneuropathy 10/24/2023 3:01 PM EST LYME DISEASE ANTIBODY SCREEN Lab Routine Polyneuropathy 10/24/2023 3:01 PM EST Health Maintenance Due Date Last Done Comments [...] this encounter Medical Devices Implanted Type Area Shipyard Painting Supervisor Device Identifier Shelf Expiration Date Model / Serial / Lot Marker Coronary - [id number] Implanted:Qty: 1 on 10/01/2023 by Yaya Arce MD at OR [facility] N/A: Heart [employer] 06/28/2026 [facility] / / [id number] documented as of this encounter Visit Diagnoses Diagnosis Polyneuropathy Unspecified hereditary and idiopathic peripheral neuropathy [...] Discussed due to patient's condition Care Teams Template Maker Relationship Specialty Start Date End Date , Dax Hendrix MD [address] [facility], [place] [address] PCP - General Internal Medicine 04/24/22 documented as of this encounter
--- OUTSIDE RECORDS SUMMARY | 2023-11-02 00:32 | External Medical Summary | Summary of Care ---
Author Name Unknown Organization [facility] Address [address] [place] [address] Phone [phone] Care Team Providers Care Feather Cutting Machine Feeder Name Role Phone ProDax MD Primary Care Provider +1- [phone] Reason for Visit * Reason Comments Dosage Adjustment Via Phone (anticoag Cl inic) Encounter Details Date Type Department Care Team (Latest Contact Info) Description 10/25/2023 5:10 PM EST Anticoagulation Pharmacy, [facility] [address] [place] [address] [place] [address] S/P CABG x 5*; Atrial fibrillation, unspecified type (HCC) Allergies Active Allergy Reactions Criticality Noted Date Comments Dulaglutide 09/28/2023 documented as of this encounter (statuses as of 10/25/2023) Medications Medication Sig Dispensed Refills Start Date [...] as of this encounter (statuses as of 10/25/2023) Active Problems Problem Noted Date Diagnosed Date S/P CABG x 5 10/05/2023 Atrial fibrillation, unspecified type 10/05/2023 Malnutrition of moderate degree 10/03/2023 Coronary artery disease of n ative artery of [place] heart with stable angina pectoris 09/28/2023 Type 2 diabetes mellitus wit h hemoglobin A1c goal of less than 7.0% 11/06/2003 Overview: ICD-10 update of inactive term documented as of this encounter (statuses as of 10/25/2023) Social History Tobacco Use Types Packs/Day Years [...] as of this encounter Progress Notes * Nicki Garcia RPh - 10/25/2023 8:25 AM EST [phone]- [facility] Per cotton picking machine operator, patient remains admitted. Follow up for discharge in 1 week. Nicki Garcia, Pharm D, BCACP Clinical Pharmacist 10/18/2023, 8:43 AM documented in this encounter Plan of Treatment Upcoming Encounters Date Type Department Care Team (Late st Contact Info) Description 10/25/2023 12:30 PM EST Telemedicine Cardiothoracic Surg [facility], [address] [place] [address] Samuel Prado PA-C [address] [place] [address] 11/01/2023 5:10 PM EST Anticoagulation Pharmacy, [facility] [place] [address] [facility] [address] [place] [address] 11/05/2023 11:00 AM EST Office Visit Cardiology, [facility] 132 [place] [address] Salo Mclaughlin DO 132 [place] [address] 11/07/2023 11:30 AM EST Office Visit [facility] [place] [address] [place] [address] Yaya Arce MD [address] [place] [address] 11/26/2023 12:45 PM EST NeuroDiagnostic Study Neurophysiology [facility] [address] [place] [address] Blanco Cartagena MD [address] [place] [address] 12/03/2023 8:40 AM EST Telemedicine Endocrinology, [place] [address] [place] [address] Hany Hernández MD [address] [place] [address] 01/02/2024 9:20 AM EST Telemedicine Neurology [facility] [address] [place] [address] Virgie Louis PA-C [address] [place] [address] Health Maintenance Due Date Last Done Comments [...] this encounter Medical Devices Implanted Type Area Global Account Executive Device Identifier Shelf Expiration Date Model / Serial / Lot Marker Coronary - [id number] Implanted:Qty: 1 on 10/01/2023 by Yaya Arce MD at OR [facility] N/A: Heart [employer] 06/28/2026 [facility] / / [id number] documented as of this encounter Visit Diagnoses Diagnosis S/P CABG x 5- Primary Postsurgical aortocoronary bypass status Atrial fibrillation, unspecified type (HCC) documented in this encounter Advance Directives Latest [...] Discussed due to patient's condition Care Teams Feather Cutting Machine Feeder Relationship Specialty Start Date End Date ProDax MD [address] [place] [address] PCP - General Internal Medicine 04/24/22 documented as of this encounter
--- OUTSIDE RECORDS SUMMARY | 2023-11-02 00:32 | External Medical Summary ---
Author Name Unknown Address Unknown Organization [id number]:LABORATORY [facility] - [address] [place] [address] Laboratory Report Ordering Provider Test Date Status RAYNA MORRIS 10/24/2023 15:01:32 Final Observation Date Value Abnormality Reference (Units ) Status CK 10/24/2023 15:01:32 38 Below low normal 39- 308 (U/L) Final Performing Location [facility] - [address] [place] [address]
--- OUTSIDE RECORDS SUMMARY | 2023-11-02 00:32 | External Medical Summary ---
Author Name Unknown Address Unknown Organization [id number]:LABORATORY [facility] - [address] [place] [address] Laboratory Report Ordering Provider Test Date Status RAYNA MORRIS 10/24/2023 15:01:32 Final Observation Date Value Abnormality Reference (Units ) Status Vitamin B12 10/24/2023 15:01:32 [phone] (pg/mL) Final Performing Location [facility] - [address] [place] [address]
--- OUTSIDE RECORDS SUMMARY | 2023-11-02 00:32 | External Medical Summary ---
Author Name Unknown Address Unknown Organization [id number]:LABORATORY [facility] - [address] [place] [address] Laboratory Report Ordering Provider Test Date Status DINA MORRISDANIELLE 10/24/2023 15:01:32 Final Observation Date Value Abnormality Reference (Units ) Status TSH 10/24/2023 15:01:32 4.36 Above high normal 0. 27-4.20 (uIU/mL) Final Performing Location LAB[facility] - [address] [place] [address]
--- OUTSIDE RECORDS SUMMARY | 2023-11-02 00:32 | External Medical Summary ---
Author Name Unknown Address Unknown Organization [id number]:LABORATORY [facility] - [address] [facility] [address] Laboratory Report Ordering Provider Test Date Status RAYNA MORRIS 10/24/2023 15:01:32 Final Observation Date Value Abnormality Reference (Units ) Status Borrelia burgdorferi IgG and IgM [Interpretation] in Serum by Immunoassay 10/24/2023 15:01:32 Negative Negative Final Performing Location LABORATORY [facility] - [address] [facility] [address]
--- OUTSIDE RECORDS SUMMARY | 2023-11-02 00:32 | External Medical Summary | Summary of Care ---
Author Name Unknown Organization [facility] Address [address] [place] [address] Phone [phone] Care Team Providers Care Dip Brazier Name Role Phone Pro, Dax Hendrix MD Primary Care Provider +1- [phone] Reason for Visit * Reason Onset Date Comments Advice 10/24/2023 Discharge Recomm endations Encounter Details Date Type Department Care Team (Late st Contact Info) Description 10/24/2023 Telephone Neurology [facility] [address] [place] [address] Services, Scheduling [address] [place] [address] Advice (Discharge Recommendations ) Allergies Active Allergy Reactions Criticality Noted Date [...] artery disease of n ative artery of [place] heart with stable angina pectoris 09/28/2023 Type [...] Miscellaneous Notes * Telephone Encounter - Luz Rodriguez MED ASSIST - 10/25/2023 2:14 PM EST I faxed over the office note from last appt for VALENCIA to review. * Telephone Encounter - Sully Walsh OSA - 10/24/2023 4:00 PM EST Mark Wright PA-C [facility] regarding recommendations, patient is being discharged on 10/26/23. aMrk is requesting a return call. office [phone] documented in this encounter Plan of Treatment Upcoming Encounters Date Type Department Care Team (Latest Contact Info) Description 10/25/2023 5:10 PM EST Anticoagulation Pharmacy, [facility] 132 [place] [address] [facility] 132 [place] [address] S/P CABG x 5*; Atrial fibrillation, unspecified type (HCC) 11/01/2023 5:10 PM EST Anticoagulation Pharmacy, [facility] 132 [place] [address] [facility] 132 [place] [address] 11/05/2023 11:00 AM EST Office Visit Cardiology, [facility] 132 [place] [address] Salo Mclaughlin DO 132 [place] [address] 11/07/2023 11:30 AM EST Office Visit [facility], [address] [address] Yaya Acre MD [facility] [place] [address] 11/26/2023 12:45 PM EST NeuroDiagnostic Study Neurophysiology [facility] [address] [place] [address] Blanco Cartagena MD [address] [place] [address] 12/03/2023 8:40 AM EST Telemedicine Endocrinology, [place] [address] [place] [address] Hany Hernández MD [facility] [place] [address] 01/02/2024 9:20 AM EST Telemedicine Neurology [facility] 200 [facility] [place] [place] [address] Virgie Louis PA-C 200 [facility] [place] [address] Health Maintenance Due Date Last Done Comments [...] Completed 08/30/2015, 01/17/2012 Zoster Vaccines Completed 01/14/2022, 03/0 10/2021, 08/13/2021, Additional history exists COVID-19 Vaccine Completed 08/04/2023, , 07/15/2022, Additional history exists GARDASIL-HPV IMMUNIZATION SERIES Aged Out No longer eligible based on patient's age to complete this topic MENINGOCOCCAL (MENACTRA/MENVEO) Aged Out No longer eligible based on patient's age to complete this topic documented as of this encounter Medical Devices Implanted Type Area Direct Mail Coordinator Device Identifier Shelf Expiration Date Model / Serial / Lot Marker Coronary - [id number] Implanted:Qty: 1 on 10/01/2023 by Yaya Arce MD at [place] [facility] N/A: Heart [employer] 06/28/2026 [facility] / / [id number] documented as of this encounter Advance Directives [...] Discussed due to patient's condition Care Teams Dip Brazier Relationship Specialty Start Date End Date Pro, Dax Hendrix MD [address] [place] [address] PCP - General Internal Medicine 04/24/22 documented as of this encounter
--- OUTSIDE RECORDS SUMMARY | 2023-11-02 00:32 | External Medical Summary | Summary of Care ---
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 09/28/2023 Type [...] 10/25/2023 12:30 PM EST Telemedicine Cardiothoracic Surg [facility] [place] [address] [place] [address] Samuel Prado PA-C [address] [place] [address] 10/25/2023 5:10 PM EST Anticoagulation Pharmacy, [facility] [place] [address] [facility] 132 [place] [address] [phone]- [facility] 11/05/2023 11:00 AM EST Office Visit Cardiology, [facility] [address] [facility] [address] Salo Mclaughlin, [facility] [place] [address] 11/07/2023 11:30 AM EST Office Visit Cardiothoracic Surg [facility], [place] [address] [place] [address] Yaya Arce MD [address] [place] [address] 11/26/2023 12:45 PM EST NeuroDiagnostic Study Neurophysiology [facility] [address] [place] [address] Blanco Cartagena MD [address] [place] [address] 12/03/2023 8:40 AM EST Telemedicine Endocrinology, [place] [address] [place] [address] Hany Hernández MD [address] [place] [address] 01/02/2024 9:20 AM EST Telemedicine Neurology [facility] [address] [place] [address] Virgie Louis PA-C [address] [place] [address] Health Maintenance Due Date Last Done Comments [...] this encounter Medical Devices Implanted Type Area Pattern Drum Maker Device Identifier Shelf Expiration Date Model / Serial / Lot Marker Coronary - [id number] Implanted:Qty: 1 on 10/01/2023 by Yaya Arce MD [place] [facility] [place]/A: Heart [employer] 06/28/2026 [facility] / / [id number] documented as of this encounter Advance Directives [...] Discussed due to patient's condition Care Teams Meteorology Instructor Relationship Specialty Start Date End Date Pro, Dax Hendrix MD [address] [place] [address] PCP - General Internal Medicine 04/24/22 documented as of this encounter
--- OUTSIDE RECORDS SUMMARY | 2023-11-02 00:32 | External Medical Summary ---
Author Name Unknown Address Unknown Organization K01:LABORATORY [address] [address] Laboratory Report Ordering Provider Test Date Status RAYNA MORRIS 10/24/2023 15:01:32 Final Observation Date Value Abnormality Reference (Units ) Status Nuclear IgG Ab [Ratio] in Serum by Immunoassay 10/24/2023 15:01:32 Negative Negative Final DNA double strand Ab [Presence] in Serum 10/24/2023 15:01:32 Negative Negative Final DOUBLE STRANDED DNA VALUE - [facility] 10/24/2023 15:01:32 2.4 <20 (IU/mL) Final Extractable nuclear Ab [Presence] in Serum 10/24/2023 15:01:32 Negative Negative Final Nuclear IgG Ab [Ratio] in Serum by Immunoassay 10/24/2023 15:01:32 0.1 <0.7 (Ratio) Final Screening is based on detect ion of the following antibodies: dsDNA, U1-ROCKET SCIENTIST (RNP70, A, C), SS-A/Ro, SS-B / La, Madina-1, Scl-70, Centromere B proteins and Sm proteins. In conjunction with clinical findings, this can aid in the diagnosis of systemic lupus erythematosous (SLE), mixed connective tissue disease (MCTD), Sjogren's syndrome, scleroderma and polymyositis/dermatomyositis.
However, a negative result does not rule out systemic rheumatic or other autoimmune disease. If clinically suspected, further evaluation and testing may be necessary. Please consult with Rheumatology Department.
Methodology: Fluorescent Enzyme Immunoassay. Performing Location LABORATORY [address] [address]
--- OUTSIDE RECORDS SUMMARY | 2023-11-02 00:32 | External Medical Summary ---
Author Name Unknown Address Unknown Organization K01:LABORATORY [facility] - [address] [facility] [address] Laboratory Report Ordering Provider Test Date Status RAYNA MORRIS 10/24/2023 15:01:32 Final Observation Date Value Abnormality Reference (Units) Status PARAPROTEIN NORMAL/ABNORMAL 10/24/2023 15:01:32 Normal Normal Final Protein 10/24/2023 15:01:32 6.2 6.0-8.3 (g/dL) Final Albumin/Protein.total [Pure mass fraction] in Serum or Plasma by Electrophoresis 10/24/2023 15:01:32 3.06 Below low normal 3.30-4.40 (g/dL) Final Alpha 1 globulin/Protein.tota l [Pure mass fraction] in Serum or Plasma by Electrophoresis 10/24/2023 15:01:32 0.25 0.10-0.30 (g/dL) Final Alpha 2 globulin/Protein.tota l [Pure mass fraction] in Serum or Plasma by Electrophoresis 10/24/2023 15:01:32 1.08 Above high normal 0.60-1.00 (g/dL) Final Beta globulin/Protein.tota l [Pure mass fraction] in Serum or Plasma by Electrophoresis 10/24/2023 15:01:32 0.83 0.80-1.30 (g/dL) Final Gamma globulin/Protein.tota l [Pure mass fraction] in Serum or Plasma by Electrophoresis 10/24/2023 15:01:32 0.99 0.70-1.70 (g/dL) Final Protein Fractions [Interpretation] in Serum or Plasma by Electrophoresis Narrative 10/24/2023 15:01:32 No paraprotein detected. Final Performing Location LABORATORY [facility] - [address] [facility]. [facility] [address]
--- OUTSIDE RECORDS SUMMARY | 2023-11-02 00:32 | External Medical Summary | Summary of Care ---
Author Name Unknown Organization [facility] Address [address] [place] [address] Phone [phone] Care Team Providers Care Asset Card Clerk Name Role Phone ProDax MD Primary Care Provider +1- [phone] Reason for Visit * Reason Onset Date Comments abnormal imaging study 10/23/2023 Test Results 10/23/2023 Encounter Details Date Type Department Care Team (Late st Contact Info) Description 10/23/2023 Telephone Neurology [facility] [address] [place] [address] Services, Scheduling [address] [place] [address] abnormal imaging study; Test Results Allergies Active [...] artery disease 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 09/28/2023 Type [...] Description 11/01/2023 5:10 PM EST Anticoagulation Pharmacy, [facility] [address] [place] [address] [facility] 132 [facility] [place] [address] 11/05/2023 11:00 AM EST Office Visit Cardiology, [facility] 132 [facility] [place] [address] Salo Mclaughlin DO 132 [facility] [place] [address] 11/07/2023 11:30 AM EST Office Visit Cardiothoracic Surg [facility], [place] [address] [place] [address] Yaya Arce MD [address] [place] [address] 11/26/2023 12:45 PM EST NeuroDiagnostic Study Neurophysiology [facility] [address] [place] [address] Blanco Cartagena MD [address] [place] [address] 12/03/2023 8:40 AM EST Telemedicine Endocrinology, [place] [address] [place] [address] Hany Hernández MD [address] [place] [address] 01/02/2024 9:20 AM EST Telemedicine Neurology [facility] [address] [place] [address] Virgie Louis PA-C [address] [place] [address] Health Maintenance Due Date Last Done Comments [...] this encounter Medical Devices Implanted Type Area Special Assemblies Supervisor Device Identifier Shelf Expiration Date Model / Serial / Lot Marker Coronary - [id number] Implanted:Qty: 1 on 10/01/2023 by Yyaa Arce MD at OR [facility] N/A: Heart [employer] 06/28/2026 [facility] / / [id number] documented as of this encounter Advance Directives [...] Discussed due to patient's condition Care Teams Asset Card Clerk Relationship Specialty Start Date End Date Pro, Dax Hendrix MD [address] [place] [facility] [place] [address] PCP - General Internal Medicine 04/24/22 documented as of this encounter
--- OUTSIDE RECORDS SUMMARY | 2023-11-02 00:32 | External Medical Summary | Summary of Care ---
Author Name Unknown Organization [facility] Address [address] [place] [address] Phone [phone] Care Team Providers Care Bottle Caser Name Role Phone Dax Nathan MD Primary Care Provider +1- [phone] Reason for Visit * Reason Onset Date Comments Test Results 10/25/2023 Encounter Details Date Type Department Care Team (Late st Contact Info) Description 10/25/2023 Telephone Neurology [facility] [address] [place] [address] Flora Spencer MD [address] [place] [address] Test Results Allergies Active Allergy Reactions Criticality [...] artery disease of n ative artery of [place] heart with stable angina pectoris 09/28/2023 Type [...] Description 10/25/2023 5:10 PM EST Anticoagulation Pharmacy, [facility] [address] [facility] [place] [address] [facility] 132 [place] [address] S/P CABG x 5*; Atrial fibrillation, unspecified type (HCC) 11/01/2023 5:10 PM EST Anticoagulation Pharmacy, [facility] 132 [facility] [place] [address] [facility] 132 [place] [address] 11/05/2023 11:00 AM EST Office Visit Cardiology, [facility] 132 [place] [address] Salo Mclaughlin DO 132 [facility] [place] [address] 11/07/2023 11:30 AM EST Office Visit [facility], [place] [address] [place] [address] Yaya Arce MD [address] [place] [address] 11/26/2023 12:45 PM EST NeuroDiagnostic Study Neurophysiology [facility] [address] [place] [address] Blanco Cartagena MD [address] [place] [address] 12/03/2023 8:40 AM EST Telemedicine Endocrinology, [place] [address] [place] [address] Hany Hernández MD [address] [place], [place] [id number] 01/02/2024 9:20 AM EST Telemedicine Neurology [employer] 200 [facility] [place] [address] Virgie Louis PA-C [facility] [place] [address] Health Maintenance Due Date Last Done Comments [...] this encounter Medical Devices Implanted Type Area Welding Machine Operator Gas Metal Arc Device Identifier Shelf Expiration Date Model / Serial / Lot Marker Coronary - [id number] Implanted:Qty: 1 on 10/01/2023 [place] [facility] [place] [employer] 06/28/2026 [facility] / / [id number] documented as of this encounter Advance Directives [...] Discussed due to patient's condition Care Teams Bottle Caser Relationship Specialty Start Date End Date Pro, Dax Hendrix MD [address] [facility] [place] [address] PCP - General Internal Medicine 04/24/22 documented as of this encounter
--- OUTSIDE RECORDS SUMMARY | 2023-11-02 00:32 | External Medical Summary | Summary of Care ---
Author Name Unknown Organization [facility] Address [address] [place] [address] Phone [phone] Care Team Providers Care Kettle Cleaner Name Role Phone Dax Nathan MD Primary Care Provider +1- [phone] Encounter Details Date Type Department Care Team (Late st Contact Info) Description 10/25/2023 12:30 PM EST Telemedicine Cardiothoracic Surg [facility] [address] [place], [place] [id number] Samuel Prado PA-C [address] [place], [place] [id number] S/P CABG x 5* Allergies Active Allergy Reactions Criticality Noted Date [...] artery disease of n ative artery of [place] heart with stable angina pectoris 09/28/2023 Type [...] as of this encounter Progress Notes * Samuel Prado PA-C - 10/25/2023 12:30 PM EST After connecting to the patient via telephone, the patient was identified by name and date of . Patient was then informed that this was a telephone call only visit. The patient agreed to participate. Visit Disposition: Routine follow-up Total call duration was 15 minutes. Reason for Visit: Post Op CC: Patient offers no c/o. Denies headaches, dizziness, chest pain, SOB, fever, chills, nausea, vomiting or difficulty with voiding. Appetite good. Ambulating well. Incisions healing well. HOSPITAL COURSE (focused): Patient was admitted to the hospital for CABG evaluation. After preop testing, he was determined giuliana a candidate and remained stable in the hospital. On 10/01, He underwent CABG x 5. There were no major intraoperative issues. He was brought to the CCU in stable but critical condition. He was extubated routinely, and monitoring lines and drainage tubes were removed in routine fashion. He was started on betablocker and ARB and tolerated, and diuresed as is routine. He did have brief afib on IDP1ukhos converted with amio bolus x 2. He had more afib on POD 4 so he was started on PO amio and coumadin. Coumadin was not continued upon discharge. He also had dilated colon initially post op but had several BM with bowel regimen and KUB drastically improved. He recovered well, and was discharged to rehab in good condition on 10/09/23. EF 60% Operations & Procedures: CABG X 5 APONTE to LAD SVG to DIAG, RAMUS, OM, PDA Complications: afib Seen by Neurology yesterday after recent MRI and balance issues. Scheduled for EEG. Ambulates with walker and reports feels weak still. Eating well, denies n/v, fevers, chills. PE: deferred - telemed BP 110/67 BG 175 Meds: Current Outpatient Medications Medication Sig Dispense Refill Fluocinonide 0.05 % External Cream Apply topically to affected area 2 times a day . Apply 2x daily Insulin Glargine Solostar 100 UNIT/ML Subcutaneous Solution Pen-injector (AdGent DigitalMark) Inject under the skin . Olmesartan Medoxomil [...] No current facility-administered medications for this visit. Impression: S/P CABG x 5 on 10/01/23 Dr. Arce Plan: l. F/u with Dr. Arce as scheduled 2. Stop pepcid, potassium, lasix when bottles are empty 3. C/w current meds 4. F/U with Cardiology and Dax Nathan MD 5. No driving and no lifting > 10 lbs for 8 weeks postop 6. Soap and water to incision sites daily VALENCIA Jensen Dr. documented in this encounter Plan of Treatment Upcoming Encounters Date Type Department Care Team (Latest Contact Info) Description 10/25/2023 5:10 PM EST Anticoagulation Pharmacy, [address] [place] [address] [place] [address] S/P CABG x 5*; Atrial fibrillation, unspecified type (HCC) 11/01/2023 5:10 PM EST Anticoagulation Pharmacy, [facility] [place] [address] [place] [address] 11/05/2023 11:00 AM EST Office Visit Cardiology, [facility] [address] [place] [address] Salo Mclaughlin, [address] [place] [address] 11/07/2023 11:30 AM EST Office Visit [facility] [place] [address] [place] [address] Yaya Arce MD [address] [place] [address] 11/26/2023 12:45 PM EST NeuroDiagnostic Study Neurophysiology [facility] 200 [facility] [place] [address] Blanco Cartagena MD [address] [facility] [address] [place] [address] 12/03/2023 8:40 AM EST Telemedicine Endocrinology, [place] [address] [place] [address] Hany Hernández MD [address] [place], [place] [id number] 01/02/2024 9:20 AM EST Telemedicine Neurology [facility] 200 [facility] [place] [address] Virgie Louis PA-C 200 [facility] [place] [address] Health Maintenance Due Date Last Done Comments [...] this encounter Medical Devices Implanted Type Area Tool Storage Attendant Device Identifier Shelf Expiration Date Model / Serial / Lot Marker Coronary - [id number] Implanted:Qty: 1 on 10/01/2023 [place] Y[place] Ar[place] [facility] [place] [employer] 06/28/2026 [facility] / / [id number] documented as of this encounter Visit Diagnoses Diagnosis S/P CABG x 5- Primary Postsurgical aortocoronary bypass status S/P CABG x 5- Primary Postsurgical aortocoronary [...] due to patient's condition Care Teams Kettle Cleaner Relationship Specialty Start Date End Date ProDax MD [address] [facility], [place] [address] PCP - General Internal Medicine 04/24/22 documented as of this encounter
--- OUTSIDE RECORDS SUMMARY | 2023-11-02 00:33 | External Medical Summary ---
Author Name Unknown Address Unknown Organization [id number] [place] [place] [address] Laboratory Report Ordering Provider Test Date Status DANETTE SOLANO 10/17/2023 05:50:00 Final Observation Date Value Abnormality Reference (Units ) Status WBC, Total 10/17/2023 05:50:00 11.14 Above high normal 4 .00-10.80 (K/uL) Final RBC 10/17/2023 05:50:00 4.29 4.50-5.25 (M/uL) Final Hemoglobin 10/17/2023 05:50:00 12.4 Below low normal 14 .0-16.8 (g/dL) Final HCT 10/17/2023 05:50:00 37.4 Below low normal 40. 0-48.4 (%) Final MCV 10/17/2023 05:50:00 87.2 82.0-99.5 (fL) Final MCH 10/17/2023 05:50:00 28.9 27.0-34.0 (pg) Final MCHC 10/17/2023 05:50:00 33.2 32.0-36.0 (g/dL) Final RDW 10/17/2023 05:50:00 14.4 11.5-15.5 (%) Final Platelets 10/17/2023 05:50:00 153 140-400 (K /uL) Final MPV 10/17/2023 05:50:00 12.3 6.6-11.1 ( fL) Final Performing Location [facility] [place] [address]
--- OUTSIDE RECORDS SUMMARY | 2023-11-02 00:33 | External Medical Summary ---
Author Name Unknown Address Unknown Organization [facility] [place] [address] Laboratory Report Ordering Provider Test Date Status LIV MARTINEZ 10/17/2023 05:50:00 Final Warfarin Therapy
INR: 2 .0-3.0 conventional anticoagulation
INR: 2.5- 3.5 high intensity anticoagulation Observation Date Value Abnormality Reference (Units ) Status PT 10/17/2023 05:50:00 21.6 Above high normal 11 .6-15.2 (seconds) Final INR 10/17/2023 05:50:00 1.9 Above high normal 0. 8-1.2 Final Performing Location [facility] [place] [address]
--- OUTSIDE RECORDS SUMMARY | 2023-11-02 00:33 | External Medical Summary ---
Author Name Unknown Address Unknown Organization [facility] [place] [address] Laboratory Report Ordering Provider Test Date Status LIV MARTINEZ 10/19/2023 07:16:57 Final Warfarin Therapy
INR: 2 .0-3.0 conventional anticoagulation
INR: 2.5- 3.5 high intensity anticoagulation Observation Date Value Abnormality Reference (Units ) Status PT 10/19/2023 07:16:57 24.4 Above high normal 11 .6-15.2 (seconds) Final INR 10/19/2023 07:16:57 2.2 Above high normal 0. 8-1.2 Final Performing Location [facility] [place] [address]
--- OUTSIDE RECORDS SUMMARY | 2023-11-02 00:33 | External Medical Summary ---
Author Name Unknown Address Unknown Organization K0G:[facility] [place] [address] [place] [address] Laboratory Report Ordering Provider Test Date Status LIV MARTINEZ 10/13/2023 05:35:00 Final Observation Date Value Abnormality Reference (Units ) Status BUN 10/13/2023 05:35:00 21 Above high normal 6-20 (mg/dL) Final Creatinine 10/13/2023 05:35:00 1.1 0.6-1.2 (mg/dL) Final Glomerular filtration rate/1.73 sq M.predicted [Volume Rate/Area] in Serum, Plasma or Blood by Creatinine-based formula (CKD-EPI) 10/13/2023 05:35:00 66 >=60 (mL/min) Final eGFR is calculated based on the CKD-EPI 2020 equation SODIUM 10/13/2023 05:35:00 138 135-146 (m mol/L) Final Potassium 10/13/2023 05:35:00 4.6 3.5-5.1 (m mol/L) Final Cl 10/13/2023 05:35:00 103 98-107 (mm ol/L) Final CO2 10/13/2023 05:35:00 25 22-32 (mmo l/L) Final Anion gap 10/13/2023 05:35:00 10 7-15 (mmol /L) Final Glucose 10/13/2023 05:35:00 187 Above high normal 70 -120 (mg/dL) Final Calcium 10/13/2023 05:35:00 8.2 Below low normal 8.4 -10.2 (mg/dL) Final Performing Location [facility] [place] [address] [place] [address]
--- OUTSIDE RECORDS SUMMARY | 2023-11-02 00:33 | External Medical Summary ---
Author Name Unknown Address Unknown Organization K0G:[facility] [place] [address] [place] [address] Laboratory Report Ordering Provider Test Date Status LIV MARTINEZ 10/13/2023 05:35:00 Final Warfarin Therapy
INR: 2 .0-3.0 conventional anticoagulation
INR: 2.5- 3.5 high intensity anticoagulation Observation Date Value Abnormality Reference (Units ) Status PT 10/13/2023 05:35:00 15.7 Above high normal 11 .6-15.2 (seconds) Final INR 10/13/2023 05:35:00 1.2 0.8-1.2 Final Performing Location [facility] [place] [address] [place] [address]
--- OUTSIDE RECORDS SUMMARY | 2023-11-02 00:33 | External Medical Summary ---
Author Name Unknown Address Unknown Organization [facility] [place] [address] Laboratory Report Ordering Provider Test Date Status DANETTE SOLANO 10/24/2023 07:03:15 Final Observation Date Value Abnormality Reference (Units ) Status BUN 10/24/2023 07:03:15 25 Above high normal 6-20 (mg/dL) Final Creatinine 10/24/2023 07:03:15 1.5 Above high normal 0.6-1.2 (mg/dL) Final Glomerular filtration rate/1.73 sq M.predicted [Volume Rate/Area] in Serum, Plasma or Blood by Creatinine-based formula (CKD-EPI) 10/24/2023 07:03:15 48 Below low normal >=60 (mL/min) Final eGFR is calculated based on the CKD-EPI 2020 equation SODIUM 10/24/2023 07:03:15 139 135-146 (m mol/L) Final Potassium 10/24/2023 07:03:15 4.5 3.5-5.1 (m mol/L) Final Cl 10/24/2023 07:03:15 102 98-107 (mm ol/L) Final CO2 10/24/2023 07:03:15 25 22-32 (mmo l/L) Final Anion gap 10/24/2023 07:03:15 12 7-15 (mmol /L) Final Glucose 10/24/2023 07:03:15 93 70-120 (mg /dL) Final Calcium 10/24/2023 07:03:15 8.6 8.4-10.2 ( mg/dL) Final Performing Location [facility] [place] [address]
--- OUTSIDE RECORDS SUMMARY | 2023-11-02 00:33 | External Medical Summary ---
Author Name Unknown Address Unknown Organization [facility] [place] [address] Laboratory Report Ordering Provider Test Date Status LIV MARTINEZ 10/18/2023 05:27:22 Final Warfarin Therapy
INR: 2 .0-3.0 conventional anticoagulation
INR: 2.5- 3.5 high intensity anticoagulation Observation Date Value Abnormality Reference (Units ) Status PT 10/18/2023 05:27:22 22.9 Above high normal 11 .6-15.2 (seconds) Final INR 10/18/2023 05:27:22 2.0 Above high normal 0. 8-1.2 Final Performing Location [facility] [place] [address]
--- OUTSIDE RECORDS SUMMARY | 2023-11-02 00:33 | External Medical Summary ---
Author Name Unknown Address Unknown Organization K09:[facility] [address] Laboratory Report Ordering Provider Test Date Status DANETTE SOLANO 10/17/2023 05:50:00 Final Observation Date Value Abnormality Reference (Units ) Status BUN 10/17/2023 05:50:00 22 Above high normal 6-20 (mg/dL) Final Creatinine 10/17/2023 05:50:00 0.9 0.6-1.2 (mg/dL) Final Glomerular filtration rate/1.73 sq M.predicted [Volume Rate/Area] in Serum, Plasma or Blood by Creatinine-based formula (CKD-EPI) 10/17/2023 05:50:00 86 >=60 (mL/min) Final eGFR is calculated based on the CKD-EPI 2020 equation SODIUM 10/17/2023 05:50:00 138 135-146 (m mol/L) Final Potassium 10/17/2023 05:50:00 4.1 3.5-5.1 (m mol/L) Final Cl 10/17/2023 05:50:00 103 98-107 (mm ol/L) Final CO2 10/17/2023 05:50:00 25 22-32 (mmo l/L) Final Anion gap 10/17/2023 05:50:00 10 7-15 (mmol /L) Final Glucose 10/17/2023 05:50:00 164 Above high normal 70 -120 (mg/dL) Final Calcium 10/17/2023 05:50:00 8.3 Below low normal 8.4 -10.2 (mg/dL) Final Performing Location [facility] [place] [address]
--- OUTSIDE RECORDS SUMMARY | 2023-11-02 00:33 | External Medical Summary | Summary of Care ---
Author Name Unknown Organization [facility] Address [address] [place] [address] Phone [phone] Care Team Providers Care Extension Educator Name Role Phone Pro, Dax Hendrix MD Primary Care Provider +1- [phone] Reason for Referral * Precert (Within 10 days (routine)) - Pending Review Specialty Diagnoses / Procedures Referred By Christopher jay Referred To Contact Radiology Diagnoses Coronary artery disease of [place] artery of [place] heart with stable angina pectoris (HCC) Gait difficulty Procedures MRI BRAIN W WO CONTRAST Virgie Louis PA-C [address] [place] [address] Referral ID Status Reason Start Date Expiration Date V isits Requested Visits Authorized [id number] Pending Review 10/22/[phone] Reason for Visit * Reason Comments NEW PATIENT Encounter Details Date Type Department Care Team (Late st Contact Info) Description 10/15/2023 8:00 AM EST Office Visit Neurology [facility] [address] [place] [address] Virgie Louis PA-C [address] [place] [address] Coronary artery disease of [place] artery of [place] heart with stable angina pectoris (HCC)*; Gait difficulty; Slurred speech Allergies Active Allergy Reactions Criticality Noted Date Comments Dulaglutide 09/28/2023 documented as of this encounter (statuses as of 10/15/2023) Medications Medication Sig Dispensed Refills Start Date [...] the morning. 30 Tablet 3 10/09/2023 Active Additional Information Patient not taking.Reported on 10/15/2023 Amiodarone HCl 200 MG Oral Tablet (Cordarone) [...] every afternoon. 30 Tablet 3 10/09/2023 Active Additional Information Patient not taking.Reported on 10/15/2023 Aspirin 81 MG Oral Capsule Take 81 [...] as of this encounter (statuses as of 10/15/2023) Active Problems Problem Noted Date Diagnosed Date S/P CABG x 5 10/05/2023 Atrial fibrillation, unspecified type 10/05/2023 Malnutrition of moderate degree 10/03/2023 Coronary artery disease of n ative artery of [place] heart with stable angina pectoris 09/28/2023 Type 2 diabetes mellitus wit h hemoglobin A1c goal of less than 7.0% 11/06/2003 Overview: ICD-10 update of inactive term documented as of this encounter (statuses as of 10/15/2023) Social History Tobacco Use Types Packs/Day Years Used Date Smoking Tobacco: Never Alcohol Use Standard Drinks/Week Comments No 0 (1 standard drink = 0.6 oz pur e alcohol) very rarely Sex and Gender Information Value Date Recorded Sex Assigned at Not on file Gender Identity Not on file Sexual Orientation Not on file Job Start Date Occupation Industry Not on file Not on file Not on file documented as of this encounter Last Filed Vital Signs Vital Sign Reading Time Taken Comments Blood Pressure 108/68 10/15/2023 7:56 AM EST Pulse 77 10/15/2023 7:56 AM EST Temperature 36.6 C (97.9 F) 10/15/2023 7:56 AM ES T Respiratory Rate 16 10/15/2023 7:56 AM EST Oxygen Saturation 96% 10/15/2023 7:56 AM EST Inhaled Oxygen Concentration - - Weight [...] (15 years old or older) No 09/28/20 23 Cognitive Status Response Date of Assessm ent Because of a physical, menta l, or emotional condition, do you have serious difficulty concentrating, remembering, or making decisions? (5 years old or older) No 09/28/2023 documented as of this encounter Nursing Notes * Mariama Reyes LPN - 10/15/2023 7:53 AM EST Patient verified identity by spelling of last name and date. Chief Complaint Patient presents with NEW PATIENT documented in this encounter Plan of Treatment Upcoming Encounters Date Type Department Care Team (Late st Contact Info) Description 10/18/2023 5:10 PM EST Anticoagulation Pharmacy, [facility] [address] [place] [address] [facility] [address] [place] [address] 10/25/2023 12:30 PM EST Telemedicine Cardiothoracic Surg [facility], [place] [address] [place] [address] Samuel Prado PA-C [address] [place] [address] 11/05/2023 11:00 AM EST Office Visit Cardiology, [facility] [address] [place] [address] Salo Mclaughlin DO [address] [place] [address] 11/07/2023 11:30 AM EST Office Visit Cardiothoracic Surg [facility], [place] [address] [place] [address] Yaya Arce MD [address] [place] [address] 12/03/2023 8:40 AM EST Telemedicine Endocrinology, [place] [address] [place] [address] Hany Hernández MD [address] [place] [address] Scheduled Orders Name Type Priority Associated Diagnoses Orde r Schedule MRI BRAIN W WO CONTRAST Medical Imaging Routine Coronary artery disease of [place] artery of [place] heart with stable angina pectoris (HCC) Gait difficulty Expected: 10/22/2023, Expires: 11/15/2024 SPEECH FLUENCY EVALUATION Procedures Routine Slurred speech Ordered: 10/15/2023 Health Maintenance Due Date Last Done Comments Depression Screening 1952 Albumin/Creatinine Ratio 01/31/1960 Diabetic Foot Exam 01/31/1960 DTaP,Tdap,and Td Vaccines (1 - Tdap) 1961 Hepatitis B (1 of 3 - Risk 3-dose series) 2002 Influenza Vaccine (FLU shot) (#1) 2023 07/15/2022, 06/29/2021 Diabetic Eye Exam 02/23/2024 02/22/2023 HbA1c 03/30/2024 09/29/2023, 09/04/2023 GFR 10/13/2024 10/13/2023, 09/28, 10/09/2023, Additional history exists Pneumococcal Vaccine: 65+ Years [...] this encounter Medical Devices Implanted Type Area Fruit Pitter Device Identifier Shelf Expiration Date Model / Serial / Lot Marker Coronary - [id number] Implanted:Qty: 1 on 10/01/2023 by Yaya Arce MD at [place] [facility] [place]/A: Heart [employer] 06/28/2026 [facility] / / [id number] documented as of this encounter Visit Diagnoses Diagnosis Coronary artery disease of [place] artery of [place] heart with stable angina pectoris (HCC)- Primary Gait difficulty Abnormality of gait Slurred speech Other speech disturbance documented in this encounter Advance Directives Latest [...] Discussed due to patient's condition Care Teams Extension Educator Relationship Specialty Start Date End Date Pro, Dax Hendrix MD [address] [place] [address] PCP - General Internal Medicine 04/24/22 documented as of this encounter
--- OUTSIDE RECORDS SUMMARY | 2023-11-02 00:33 | External Medical Summary | Summary of Care ---
Author Name Unknown Organization [facility] Address [address] [place] [address] Phone [phone] Care Team Providers Care Office Machines Sales Representative Name Role Phone ProDax MD Primary Care Provider +1- [phone] Reason for Visit * Reason Comments Dosage Adjustment Via Phone (anticoag Cl inic) Encounter Details Date Type Department Care Team (Latest Contact Info) Description 10/18/2023 5:10 PM EST Anticoagulation Pharmacy, [facility] [address] [place] [address] [place] [address] S/P CABG x 5*; Atrial fibrillation, unspecified type (HCC) Allergies Active Allergy Reactions Criticality Noted Date Comments Dulaglutide 09/28/2023 documented as of this encounter (statuses as of 10/18/2023) Medications Medication Sig Dispensed Refills Start Date [...] as of this encounter (statuses as of 10/18/2023) Active Problems Problem Noted Date Diagnosed Date S/P CABG x 5 10/05/2023 Atrial fibrillation, unspecified type 10/05/2023 Malnutrition of moderate degree 10/03/2023 Coronary artery disease of n ative artery of [place] heart with stable angina pectoris 09/28/2023 Type 2 diabetes mellitus wit h hemoglobin A1c goal of less than 7.0% 11/06/2003 Overview: ICD-10 update of inactive term documented as of this encounter (statuses as of 10/18/2023) Social History Tobacco Use Types Packs/Day Years [...] Progress Notes * Nicki Garcia RPh - 10/18/2023 8:41 AM EST [phone]- [facility] Per singeing torch operator, patient remains admitted. Follow up for discharge in 1 week. Nicki Garcia, Pharm D, BCACP Clinical Pharmacist 10/18/2023, 8:43 AM documented in this encounter Plan of Treatment Upcoming Encounters Date Type Department Care Team (Late st Contact Info) Description 10/18/2023 11:30 AM EST [facility] [address] [place] [address] 10/25/2023 12:30 PM EST Telemedicine Cardiothoracic Surg [facility] [place] [address] [place] [address] Samuel Prado PA-C [address] [place] [address] 10/25/2023 5:10 PM EST [facility]tico[facility] Pharm[facility], [facility] [address] [facility] 132 [place] [address] 11/05/2023 11:00 AM EST Office Visit Cardiology, [facility] [address] [facility] [place] [address] Salo Mclaughlin, 132 [place] [address] 11/07/2023 11:30 AM EST Office Visit Cardiothoracic Surg [facility], [place] [address] [place] [address] Yaya Arce MD [address] [place] [address] 12/03/2023 8:40 AM EST Telemedicine Endocrinology, [place] [address] [place] [address] Hany Hernández MD [address] [place] [address] 01/02/2024 9:20 AM EST Telemedicine Neurology [facility] [address] [place] [address] Virgie Louis PA-C [address] [place] [address] Health Maintenance Due Date Last Done Comments Depression Screening 1952 Albumin/Creatinine Ratio 01/31/1960 Diabetic Foot Exam 01/31/1960 DTaP,Tdap,and Td Vaccines (1 - Tdap) 1961 Hepatitis B (1 of 3 - Risk 3-dose series) 2002 Influenza Vaccine (FLU shot) (#1) 2023 07/15/2022, 06/29/2021 Diabetic Eye Exam 02/23/2024 02/22/2023 HbA1c 03/30/2024 09/29/2023, 09/04/2023 GFR 10/17/2024 10/17/2023, 09/28, 10/10/2023, Additional history exists Pneumococcal Vaccine: 65+ Years [...] this encounter Medical Devices Implanted Type Area Manager Business Operations Device Identifier Shelf Expiration Date Model / Serial / Lot Marker Coronary - [id number] Implanted:Qty: 1 on 10/01/2023 by Yaya Arce MD at OR [facility] N/A: Heart [employer] 06/28/2026 [facility] / / [id number] documented as of this encounter Visit Diagnoses [...] Discussed due to patient's condition Care Teams Office Machines Sales Representative Relationship Specialty Start Date End Date Dax Nathan MD [address] [place] [address] PCP - General Internal Medicine 04/24/22 documented as of this encounter
--- OUTSIDE RECORDS SUMMARY | 2023-11-02 00:33 | External Medical Summary ---
Author Name Unknown Address Unknown Organization [id number]:[facility] [address] [place] [address] Laboratory Report Ordering Provider Test Date Status LIV MARTINEZ 10/14/2023 05:15:00 Final Warfarin Therapy
INR: 2 .0-3.0 conventional anticoagulation
INR: 2.5- 3.5 high intensity anticoagulation Observation Date Value Abnormality Reference (Units ) Status PT 10/14/2023 05:15:00 16.6 Above high normal 11 .6-15.2 (seconds) Final INR 10/14/2023 05:15:00 1.3 Above high normal 0. 8-1.2 Final Performing Location [facility] [address] [place] [address]
--- OUTSIDE RECORDS SUMMARY | 2023-11-02 00:33 | External Medical Summary | Summary of Care ---
Author Name Unknown Organization [facility] Address [address] [facility] [place] [address] Phone [phone] Care Team Providers Care Sr. Media Manager Name Role Phone Pro, Dax Hendrix MD Primary Care Provider +1- [phone] Reason for Referral * Precert (Within 10 days (routine)) - Pending Review Specialty Diagnoses / Procedures Referred By Christopher jay Referred To Contact Radiology Diagnoses Coronary artery disease of [place] artery of [place] heart with stable angina pectoris (HCC) Gait difficulty Procedures MRI BRAIN W WO CONTRAST Virgie Louis PA-C [address] [place] [address] Referral ID Status Reason Start Date Expiration Date V isits Requested Visits Authorized [id number] Pending Review 10/22/2023 999 999 Reason for Visit * Reason Comments NEW PATIENT Encounter Details Date Type Department Care Team (Late st Contact Info) Description 10/15/2023 8:00 AM EST Office Visit [facility] [address] [place] [address] Virgie Louis PA-C [address] [place] [address] Coronary artery disease of [place] artery of [place] heart with stable angina pectoris (HCC)*; Gait [...] artery disease of n ative artery of [place] heart with stable angina pectoris 09/28/2023 Type [...] as of this encounter Progress Notes * Virgie Louis PA-C - 10/15/2023 8:26 AM EST Consult and H & P - NEUROLOGY Name: Boubacar Brunner Date: 10/15/2023 Time: 8:26 AM Referring Provider: Self Chief Complaint: Chief Complaint Patient presents with NEW PATIENT This is a 83 year old right handed gentleman new patient referred to me today for balance issues and . HPI & Source of HPI The patient was the historian, and he is reliable. He was in 2019 when he was diagnosed with COVID. He had echo around this time that was unremarkable.He has been having issues with his gait over the past 3 years his mobility has decreased, has had weight loss, and decreased PO intake. About 2 weeks prior to his CABG he started to have episodes of chest tightness while walking up the stairs. There was no associated with any SOB or presyncope likesymptoms. He would meditate with breathing exercises that would help resolve his tightness. He had a stress echo that night he had some chest pain, the family got bad news that may have caused him tohave extra stress. At dinner that night, he ended up having a bad episode of postprandial chest pain. He went to [facility] cath which showed he had extensive disease and left main disease. Hewas admitted for further evaluation, EKG showed NSR, LAFB, and non specific ST depressions. After CABG he was sent to [facility] for rehab. He is here today for evaluation of his gait issues but did not bring his walker. He is also having some issues with dysarthria. He says at times he is lightheaded with standing. He is , non smoker, no EtOH use, no other drugs. Denies CP, SOB, abdominal pain, back or neck pain. I have reviewed the patient's medications and allergies, past medical, surgical, social and family history, updating these as appropriate. See Histories section of the electronic medical record for adisplay of this information. Patient Active Problem List Diagnosis Code Type 2 diabetes mellitus with hemoglobin A1c goal of less than 7.0% ([facility]) E11.9 Coronary artery disease of ot[place] artery of [place] heart with stable angina pectoris ([facility]) I25.118 Malnutrition of moderate degree ([facility]) E44.0 S/P CABG x 5 Z95.1 Atrial fibrillation, unspecified type ([facility]) I48.91 Family History Problem Relation Age of Onset Diabetes Grandfather (Maternal) Diabetes Grandfather (Paternal) Diabetes Sister Diabetes Brother 2 older brothers Glaucoma None Eye Problems None Denies family history Medications: Are you taking your medications? yes Current Outpatient Medications Medication Sig Dispense Refill Fluocinonide 0.05 % External Cream Apply topically to affected area 2 times a day . Apply 2x daily Insulin Glargine Solostar 100 UNIT/ML Subcutaneous Solution Pen-injector (Basaglar KwikPen) Inject under the skin . Amiodarone HCl 200 MG Oral Tablet (Cordarone) [...] mouth in the morning. 60 Tablet 0 Aspirin 81 MG Oral Capsule Take 81 [...] 1 Tablet by mouth in the morning. Olmesartan Medoxomil 40 MG Oral Tablet (Benicar) Take 1 Tablet by mouth in the morning. (Patient not taking: Reported on 10/15/2023) 30 Tablet 3 Rosuvastatin Calcium 10 MG Oral Tablet (Crestor) Take 1 Tablet by mouth every afternoon. (Patient not taking: Reported on 10/15/2023) 30 Tablet 3 No current facility-administered medications for this visit. Review of patient's allergies indicates: Allergen Reactions Dulaglutide Review of Systems: A total number of 10 systems were reviewed pertinent negative and positives not addressed in HPI are listed in the following review. Physical Exam: Constitutional: BP 108/68 (BP Site: Left Arm, BP Position: Sitting, BP Cuff Size: Regular) | Pulse 77 | Temp 36.6 C (97.9 F) (Tympanic) | Resp 16 | SpO2 96% , appearance nourished, healthy, and normal Ears, Nose, Mouth and Throat: mucous membranes moist, no injection and skin normal, eyes normal Cardiovascular: normal S-1 and S-2 and regular rate and rhythm Respiratory: clear to auscultation (CTA) and no rales, ronchi or wheeze Musculoskeletal: no peripheral edema Skin: normal and intact Eyes: extraocular muscles intact (EOMI) and pupils equal, round and reactive to light (PERRL) NEUROLOGIC EXAMINATION: Mental status: Alert and interactive Oriented to full date and location Oriented to person Speech dysarthric Cranial Nerves Normal findings for Cranial Nerves II - XII Reflexes: Deep tendon reflexes were symmetrical and graded 2/5. . Sensory: no sensory deficits, light touch Coordination: rapid alternating movements are slow: Bilateral and on [id number] slight reaching tremor R>L Gait/Stance: Posture abnormal: forward head and rounded shoulders. Gait unable to evaluate did not bring walker. Motor: Negative for slight drift on left. Strength: generalized weakness and deconditioned LABORATORY: Recent labs reviewed Review of prior Studies: CT head- [facility] 10/12/23- extensive white matter changes and age related atrophy Impression: Boubacar Brunner is a 83 year old gentleman with a history of gait difficulty, slurred speech. His neurologic examination today reveals deconditioned and dysarthric speech. The history and examination are suggestive of diagnosis/problem list. Testing and Referrals ordered: MRI speech therapy ICD-10-CM 1. Coronary artery disease of [place] artery of [place] heart with stable angina pectoris (HCC) I25.118 2. Gait difficulty R26.9 3. Slurred speech R47.81 Return in 2 months or sooner if needed MRI brain with and without- r/o stroke, cerebellar atrophy Orthostatic blood pressure - needs assessed Speech evaluation for dysarthric speech Continue PT/OT as ordered Fall precautions PCP for medical management Call with questions concerns. Medical Decision Making (determined by lowest of 2 of 3 elements): The medical decision making element of the number and complexity of problems addressed included at least 1 undiagnosed new problem with uncertain prognosis (level 4). The medical decision making element of risk of complications, morbidity, and mortality of patient management is moderate (level 4) due to prescription drug management (moderate risk). The medical decision making element of the amount and complexity of data reviewed and analyzed included an independent interpretation of a test (level 4 at least). When 2 of 3 reach level 4, then this element is considered extensive (level 5). I personally spent a total of 40 minutes. This time was for a new office or established visit and was on the same calendar day. Education / Consultation - Topics covered as I spent 30 minutes, which is greater than 50% of this visit, counseling the patient on: Diagnostic Results Prognosis Importance of compliance with chosen treatment options Risk factor reductions Patient and family education Consulted with physician: Blanco Cartagena MD was available for direct supervision. Copy of note sent toPCP and Referring Provider. Total time of visit: 40 minutes. Virgie Louis PA-C Neurology [facility] [place] [address] [place] [address] 10/15/2023 8:26 AM I reviewed and discussed this case with Virgie SHEPPARD and did review the imaging studies done recently at 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 It sounds as though he has had a progressive gait decline since justen COVID but I suspect COVID has little or nothing to do with the and more suspicious about accumulation of small-vessel defects and perhaps some actual small infarctions I am somewhat surprised that he does not have paroxysmal atrial fibrillation but he certainly was monitored adequately [facility] this rhythm was apparently not detected and he remains only on anti-platelet agents We will see what the MRI shows but at this point I am not sure it would change his therapy to any great degree as even if he had a small infarction around the early part of September he has passed a point now where adding a 2nd anti- platelet drug would have any value Blanco documented in this encounter Nursing Notes * Mariama Reyes LPN - 10/15/2023 7:53 AM EST Patient verified identity by spelling of last name and date. Chief Complaint Patient presents with NEW PATIENT documented in this encounter Plan of Treatment Upcoming Encounters Date Type Department Care Team (Late st Contact Info) Description 10/18/2023 5:10 PM EST Anticoagulation Pharmacy, [address] [place] [address] [facility] [address] [place] [address] 10/25/2023 12:30 PM EST Telemedicine Cardiothoracic Surg [facility], [place] [address] [place] [address] Samuel Prado PA-C [address] [place] [address] 11/05/2023 11:00 AM EST Office Visit Cardiology, [address] [place] [address] Salo Mclaughlin, [address] [place] [address] 11/07/2023 11:30 AM EST Office Visit [facility] [place] [address] [place] [address] Yaya Arce MD [address], [place] [address] 12/03/2023 8:40 AM EST Telemedicine Endocrinology, [place] [address], [place] [address] Hany Hernández MD [address] [place], [place] [id number] Scheduled Orders Name Type Priority Associated Diagnoses Orde r Schedule MRI BRAIN W WO CONTRAST Medical Imaging Routine Coronary artery disease of [place] artery of [place] heart with stable angina pectoris (HCC) Gait [...] this encounter Medical Devices Implanted Type Area Hemodialysis Charge Nurse Device Identifier Shelf Expiration Date Model / Serial / Lot Marker Coronary - [id number] Implanted:Qty: 1 on 10/01/2023 by Yaya Arce MD at [facility] N/A: Heart [employer] 06/28/2026 [facility] / / [id number] documented as of this encounter Visit Diagnoses Diagnosis Coronary artery disease of [place] artery of [place] heart with stable angina pectoris (HCC)- Primary [...] Discussed due to patient's condition Care Teams Sr. Media Manager Relationship Specialty Start Date End Date Pro, Dax Hendrix MD [address] [place] [address] PCP - General Internal Medicine 04/24/22 documented as of this encounter"
--- OUTSIDE RECORDS SUMMARY | 2023-11-02 00:33 | External Medical Summary | Summary of Care ---
Author Name Unknown Organization [facility] Address [address] [facility] [place] [place] [address] Phone [phone] Care Team Providers Care Site Identification Specialist Name Role Phone Pro, Dax Hendrix MD Primary Care Provider +1- [phone] Reason for Visit * Reason Onset Date Comments Referral 10/15/2023 Encounter Details Date Type Department Care Team (Late st Contact Info) Description 10/15/[address] [facility] [address] [facility] [place] [address] Virgie Louis PA-C [address] [place] [address] Referral Allergies Active Allergy Reactions Criticality Noted Date [...] artery disease of n ative artery of [place] heart with stable angina pectoris 09/28/2023 Type [...] encounter Miscellaneous Notes * Telephone Encounter - Torri Parsons OSA - 10/15/2023 10:39 AM EST Faxed speech eval to [facility]. The MRI can be scheduled with spouse. He will be discharged 10-20 from [facility]. documented in this encounter Plan of Treatment Upcoming Encounters Date Type Department Care Team (Late st Contact Info) Description 10/18/2023 5:10 PM EST Anticoagulation Pharmacy, [facility] [address] [place] [address] [place], [facility] [address] [facility] [place] [address] 10/25/2023 12:30 PM EST Telemedicine Cardiothoracic Surg [facility] [place] [address] [place] [address] Samuel Prado PA-C [address] [place] [address] 11/05/2023 11:00 AM EST Office Visit Cardiology, [facility] [address] [place] [address] Salo Mclaughlin DO [address] [place] [address] 11/07/2023 11:30 AM EST Office Visit Cardiothoracic Surg [facility] [place] [address] [place] [address] Yaya Arce MD [address] [place] [address] 12/03/2023 8:40 AM EST Telemedicine Endocrinology, [place] [address] [place] [address] Hany Hernández MD [address] [place] [address] 01/02/2024 9:20 AM EST Telemedicine Neurology [facility] [address] [place] [address] Virgie Louis PA-C [address] [facility] [place] [address] Health Maintenance Due Date Last Done Comments [...] this encounter Medical Devices Implanted Type Area Planimeter Operator Device Identifier Shelf Expiration Date Model / Serial / Lot Marker Coronary - [id number] Implanted:Qty: 1 on 10/01/2023 by Yaya Arce MD [place] [facility] [place]/A: Heart [employer] 06/28/2026 [facility] / / [id number] documented as of this encounter Advance Directives [...] Discussed due to patient's condition Care Teams Site Identification Specialist Relationship Specialty Start Date End Date , Dax Hendrix MD [address] [place] [address] PCP - General Internal Medicine 04/24/22 documented as of this encounter
--- OUTSIDE RECORDS SUMMARY | 2023-11-02 00:33 | External Medical Summary ---
Author Name Unknown Address Unknown Organization K09:[facility] [place] [address] Laboratory Report Ordering Provider Test Date Status DANETTE SOLANO 10/24/2023 07:03:15 Final Observation Date Value Abnormality Reference (Units ) Status WBC, Total 10/24/2023 07:03:15 8.86 4.00-10.8 0 (K/uL) Final RBC 10/24/2023 07:03:15 4.45 4.50-5.25 (M/uL) Final Hemoglobin 10/24/2023 07:03:15 12.9 Below low normal 14 .0-16.8 (g/dL) Final HCT 10/24/2023 07:03:15 39.3 Below low normal 40. 0-48.4 (%) Final MCV 10/24/2023 07:03:15 88.3 82.0-99.5 (fL) Final MCH 10/24/2023 07:03:15 29.0 27.0-34.0 (pg) Final MCHC 10/24/2023 07:03:15 32.8 32.0-36.0 (g/dL) Final RDW 10/24/2023 07:03:15 14.7 11.5-15.5 (%) Final Platelets 10/24/2023 07:03:15 238 140-400 (K /uL) Final MPV 10/24/2023 07:03:15 11.9 6.6-11.1 ( fL) Final Performing Location [facility] [place] [address]
--- OUTSIDE RECORDS SUMMARY | 2023-11-02 00:33 | External Medical Summary ---
Author Name Unknown Address Unknown Organization K09[facility] [place] [address] Laboratory Report Ordering Provider Test Date Status LIV MARTINEZ 10/16/2023 07:36:28 Final Warfarin Therapy
INR: 2 .0-3.0 conventional anticoagulation
INR: 2.5- 3.5 high intensity anticoagulation Observation Date Value Abnormality Reference (Units ) Status PT 10/16/2023 07:36:28 22.1 Above high normal 11 .6-15.2 (seconds) Final INR 10/16/2023 07:36:28 1.9 Above high normal 0. 8-1.2 Final Performing Location [facility] [place] [address]
--- OUTSIDE RECORDS SUMMARY | 2023-11-02 00:33 | External Medical Summary ---
Author Name Unknown Address Unknown Organization K09:[facility] [place] [address] Laboratory Report Ordering Provider Test Date Status LIV MARTINEZ 10/15/2023 06:30:00 Final Warfarin Therapy
INR: 2 .0-3.0 conventional anticoagulation
INR: 2.5- 3.5 high intensity anticoagulation Observation Date Value Abnormality Reference (Units ) Status PT 10/15/2023 06:30:00 19.7 Above high normal 11 .6-15.2 (seconds) Final INR 10/15/2023 06:30:00 1.6 Above high normal 0. 8-1.2 Final Performing Location [facility] [place] [address]
[2023-11-02 07:26] LABS: Basophils # (auto) 0.03 K/uL (0.00-0.20); Basophils % (auto) 0.5 %; Eosinophils # (auto) 0.15 K/uL (0.00-0.50); Eosinophils % (auto) 2.3 %; Hematocrit (blood only) 37.5 % (42.0-52.0); Hemoglobin 13.1 g/dl (14.0-18.0); Immature Granulocytes # (auto) 0.04 K/uL (0.01-0.20); Immature Granulocytes % (auto) 0.6 %; Lymphocytes # (auto) 1.52 K/uL (1.20-3.40); Mean Corpuscular Hemoglobin 29.2 pg (25.0-34.0); Mean Corpuscular Hgb Conc 34.9 g/dL (32.0-36.0); Mean Corpuscular Volume 83.5 fL (80.0-100.0); Mean Platelet Volume 10.6 fL (9.4-12.4); Monocytes # (auto) 0.59 K/uL (0.11-0.59); Monocytes % (auto) 8.9 %; Neutrophils # (auto) 4.28 K/uL (1.40-6.50); Neutrophils % (auto) 64.7 %; Platelet Count 249 K/uL (130-400); RDW Coefficient of Variation 13.6 % (11.5-14.5); RDW Standard Deviation 41.5 fL (36.4-46.3); Red Blood Count 4.49 M/uL (4.70-6.10); White Blood Count 6.61 K/ul (4.8-10.8)
[2023-11-02 07:45] LABS: BUN Creatinine Ratio 16.8 (10-20); Calcium 8.2 mg/dl (8.6-10.3); Creatinine Clr Calc Pharmacy 44.6 ml/min; Est GFR (African American) 80.5 ml/min; Est GFR (Non-African American) 69.4 ml/min; Potassium 3.9 mmol/L (3.5-5.1)
[2023-11-02] MEDS: AMIODARONE 200 MG TAB PO SCH (08:27)
[2023-11-02] MEDS: ISOSORBIDE MONO EXTENDED REL 30 MG TABCR PO SCH (08:27)
[2023-11-02] MEDS: ASPIRIN 81 MG ECTAB PO SCH (08:27)
[2023-11-02] MEDS: LOSARTAN POTASSIUM 50 MG TAB PO SCH (08:28)
[2023-11-02] MEDS: METOPROLOL TARTRATE 25 MG TAB PO SCH ×2 (08:28→20:10)
[2023-11-02] MEDS: INSULIN ASPART PER UNIT CHARGE SC SCH ×4 (08:48→20:16)
[2023-11-02] MEDS ORDERED: amLODIPine BESYLATE 5 MG TAB PO SCH (09:00)
--- OUTSIDE RECORDS SUMMARY | 2023-11-02 11:40 | External Medical Summary | Summary of Care ---
Author Name Unknown Organization [facility] Address [address] [place] [address] Phone [phone] Care Team Providers Care Senior Reservations Agent Name Role Phone ProDax MD Primary Care Provider [phone]- [phone] Reason for Visit * Reason Comments Dosage Adjustment Via Phone (anticoag Cl inic) Encounter Details Date Type Department Care Team (Latest Contact Info) Description 11/01/2023 5:10 PM EST Anticoagulation Pharmacy, [facility] [address] [place] [address] [place] [address] S/P CABG x 5*; Atrial fibrillation, unspecified type (HCC) Allergies Active Allergy Reactions Criticality Noted Date Comments Dulaglutide 09/28/2023 documented as of this encounter (statuses as of 11/01/2023) Medications Medication Sig Dispensed Refills Start Date [...] as of this encounter (statuses as of 11/01/2023) Active Problems Problem Noted Date Diagnosed Date S/P CABG x 5 10/05/2023 Atrial fibrillation, unspecified type 10/05/2023 Malnutrition of moderate degree 10/03/2023 Coronary artery disease of n ative artery of [place] heart with stable angina pectoris 09/28/2023 Type 2 diabetes mellitus wit h hemoglobin A1c goal of less than 7.0% 11/06/2003 Overview: ICD-10 update of inactive term documented as of this encounter (statuses as of 11/01/2023) Social History Tobacco Use Types Packs/Day Years [...] of this encounter Progress Notes * Nicki Garcia, [facility] - 11/01/2023 11:11 AM EST [phone]- [facility] Per blanking press operator, patient no longer admitted Patient Phone Numbers Spoke to patient's via phone. Notes he does not have any warfarin at home. Patient's does not think he had been taking it. At [facility], last INR was 2.2 on 10/19, indicating warfarin use. Patient and are both very confused and patient is a poor historian. notes patient is not mobile and unable to leave the home. notes patient is complaining of blurred vision and dizziness. Will send message to Cardiology/Dr. Mclaughlin requesting advice. Follow up with response. Nicki aGrcia, Pharm D, BCACP Clinical Pharmacist 11/01/2023, 11:26 AM documented in this encounter Plan of Treatment Upcoming Encounters Date Type Department Care Team (Late st Contact Info) Description 11/02/2023 5:10 PM EST Anticoagulation Pharmacy, [facility] [address] [place] [address] [facility] [address] [place] [address] 11/05/2023 11:00 AM EST Office Visit Cardiology, [facility] [address] [place] [address] Salo Mclaughlin DO [address] [place] [address] 11/07/2023 11:30 AM EST Office Visit [facility], [address] [address] Yaya Arce MD [facility] [place] [address] 11/26/2023 12:45 PM EST NeuroDiagnostic Study Neurophysiology [facility] [address] [place] [address] Blanco Cartagena MD [address] [place] [address] 12/03/2023 8:40 AM EST Telemedicine Endocrinology, [address] [address] Hany Hernández MD [facility] [place] [address] 01/02/2024 9:20 AM EST Telemedicine Neurology [facility] [address] [place] [address] Virgie Louis PA-C [address] [place] [address] Health Maintenance Due Date Last Done Comments [...] Completed 08/30/2015, 01/17/2012 Zoster Vaccines Completed 01/14/2022, 030 10/2021, 08/13/2021, Additional history exists COVID-19 Vaccine Completed 08/04/2023, , 07/15/2022, Additional history exists GARDASIL-HPV IMMUNIZATION SERIES Aged Out No longer eligible based on patient's age to complete this topic MENINGOCOCCAL (MENACTRA/MENVEO) Aged Out No longer eligible based on patient's age to complete this topic documented as of this encounter Medical Devices Implanted Type Area Pitch Worker Device Identifier Shelf Expiration Date Model / Serial / Lot Marker Coronary - [id number] Implanted:Qty: 1 on 10/01/2023 by Yaya Arce MD at OR [facility] N/A: Heart [employer] 06/28/2026 [facility] / / [id number] documented as of this encounter Visit Diagnoses [...] Discussed due to patient's condition Care Teams Senior Reservations Agent Relationship Specialty Start Date End Date Pro, Dax Hendrix MD [address] [place] [address] PCP - General Internal Medicine 04/24/22 documented as of this encounter
--- NOTE | 2023-11-02 13:56 | Hospitalist Progress Note ---
Date of Service November 02, 2023 Assessment & Plan (1) Dizziness: Plan: Dizziness, balance issues, and changes in vision x 3 days In the setting of recent CABG x 5 at [facility] on 10/01; patient was recently discharged from [facility] on 10/26 Patient's is concerned that the dizziness is due to his current medications; specifically his recent changes in blood pressure medications Patient was hypoglycemic at [address] revealed NAF EKG revealed NSR at 67 bpm; QTc 397 Patient is A&Ox3 on arrival Continuous telemetry monitoring Orthostatic vitals negative Clinically, suspect dizziness is secondary to hypoglycemia +/- BP medications following surgery I discontinued amlodipine. Will monitor blood pressure and symptoms tonight. Patient does not exhibit focal deficits, unilateral weakness, or facial droop; if patient does not clinically improve, recommend follow-up brain MRI (2) Type 2 diabetes mellitus: Plan: Last A1c 6.1% on 09/04/2023 Hypoglycemic on arrival at 62 Hold metformin Note: Patient reports he has been taking insulin as follows: - 8 units of NovoLog, 10 units of Semglee (Lantus) QAM - None at lunch time -10 units of NovoLog, 10 units of Semglee (Lantus) QPM Patient's medication list from 10/26 at time of [facility] discharge listed Lantus as 18 units HS Patient uses a Dexcom at home to manage his insulin levels Recommend Lantus 5u BID while inpatient SSI; with target BSG range [id number]/dL, CF 70, carb ratio 20 Continue to monitor for signs of hypoglycemia T2DM diet BSG ACHS Pharmacy glycemic consult (3) Hypertension: Plan: BP 143/75 on arrival Patient reports he has an at home blood pressure cuff and has been taking it regularly; he says it has not been going low It should be noted that patient was recently started on several blood pressure medications following his heart surgery Patient had an upcoming appointment with [place] [facility] on 11/05 On amlodipine, isosorbide mononitrate, metoprolol, olmesartan I decided to discontinue amlodipine today Will observe blood pressure off of amlodipine Will observe his symptoms of dizziness as well in the absence of amlodipine Discharged on amiodarone for arrhythmia. 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 Yaya Arce Recent discharge from [facility] on 10/26 Continue aspirin Plan Full code VTE PPx: SCDs, Lovenox 40 mg SQ q24h Consult PT and OT. Spoke to daughter who is a physician, Dr. Beverly Brunner at [phone]. I also spoke to at [phone]. Updated them about the plan. Admission and Anticipated Discharge Date Admission Date: November 01, 2023 Subjective Patient is feeling well at this point. But he is lying in bed. He does not have any complaints of dizziness at this time. He says that he is also weak in general and unstable. Review of Systems Review of Systems: All systems reviewed & are unremarkable except as noted in Subjective Physical Exam Physical Exam: General: Awake, conversant Heart: S1, S2/regular rate and rhythm, no murmur rubs or gallops Lungs: Clear to auscultation bilaterally. Normal effort Abdomen: Soft/nontender/nondistended. No hepatosplenomegaly Extremities: No clubbing/cyanosis. No edema Behavior: Appropriate, cooperative Results & Data Results & Data Vital Signs (Past 12 Hours) Vital Signs Temp Pulse Pulse Resp BP BP Pulse Ox 11/02/23 11:24 36.5 C 61 17 120/64 95 11/02/23 07:45 36.7 C 61 18 111/64 95 11/02/23 06:26 63 11/02/23 03:35 36.6 C 61 18 100/55 L 97 O2 Del Method 11/02/23 11:24 Room Air 11/02/23 07:45 Room Air 11/02/23 06:26 11/02/23 03:35 Room Air Laboratory Results Abnormal lab results 11/01/23 11/02/23 11/02/23 Range/Units 16:39 07:02 12:09 RBC 4.49 L (4.70-6.10) M/uL Hgb 13.1 L (14.0-18.0) g/dl Hct 37.5 L (42.0-52.0) % POC Glucose 253 H 169 H (70-99) mg/dl Calcium 8.2 L (8.6-10.3) mg/dl PG Care Time/CCT Total # of Minutes Spent Total Time Spent with Patient: Total time spent is greater than 50% in coordination of care (as documented) at patient's floor/unit and/or counseling patient: Coding Level of Care Code 87557 SUB INP/OBS CARE 2/35MIN Diagnoses Dizziness R42 Type 2 diabetes mellitus E11.9 Hypertension I10 Hyperlipidemia E78.5 History of heart bypass surgery Z95.1
--- NOTE | 2023-11-02 14:07 | Pharmacy Report ---
Pharmacy Glycemic Short Note 2 - Date of Service November 02, 2023 - Glycemic Short BSG Results (Last 24 hours): 11/01/23 11/02/23 11/02/23 16:39 07:02 08:18 Glucose 70 POC Glucose 253 H 77 11/02/23 12:09 Glucose POC Glucose 169 H OUTPATIENT ANTIDIABETIC REGIMEN: * Patient reports he has been taking insulin as follows: - 8 units of NovoLog, 10 units of Semglee (Lantus) QAM - None at lunch time -10 units of NovoLog, 10 units of Semglee (Lantus) QPM * metformin 1000mg QAM, 500 mg QPM * HbA1c 6.1% (09/04/23) ASSESSMENT: * Kannan is an 83 YOM admitted with dizziness hypoglycemia and a history of T2DM. Pharmacy has been consulted for glycemic management while inpatient. * Upon admission, Kannan was hypoglycemic. Recently discharged from [facility] with blood pressure and glycemic changes. * Fasting BSG this below goal range this AM, basal insulin decreased slightly. * Novolog appears to be correcting and covering acceptably at this time, will adjust conservatively due to hypoglycemia risk. PLAN FOR INPATIENT GLYCEMIC CONTROL: * Hold outpatient oral diabetes medications * Basal insulin * Lantus 3 units SQ QAM * Bolus insulin * NovoLog per scale ACHS or Q6hrs while NPO * Goal Range: Low 120 mg/dL - High 150 mg/dL * Correction Factor: 45 mg/dL/unit * Nutritional / Prandial insulin per carb ratio of 1 unit per 15 grams CHO consumed
[2023-11-02] MEDS: ENOXAPARIN INJ 40 MG/0.4 ML SYR SQ SCH (18:29)
[2023-11-02] MEDS: ROSUVASTATIN CALCIUM 10 MG TAB PO SCH (20:10)
[2023-11-02] MEDS: LANTUS PER UNIT CHARGE SC SCH (20:15)
[2023-11-03 07:12] LABS: Basophils # (auto) 0.04 K/uL (0.00-0.20); Basophils % (auto) 0.5 %; Eosinophils # (auto) 0.21 K/uL (0.00-0.50); Eosinophils % (auto) 2.9 %; Hematocrit (blood only) 39.2 % (42.0-52.0); Hemoglobin 13.6 g/dl (14.0-18.0); Immature Granulocytes # (auto) 0.05 K/uL (0.01-0.20); Immature Granulocytes % (auto) 0.7 %; Lymphocytes # (auto) 1.63 K/uL (1.20-3.40); Lymphocytes % (auto) 22.2 %; Mean Corpuscular Hemoglobin 29.2 pg (25.0-34.0); Mean Corpuscular Hgb Conc 34.7 g/dL (32.0-36.0); Mean Corpuscular Volume 84.1 fL (80.0-100.0); Mean Platelet Volume 10.6 fL (9.4-12.4); Monocytes # (auto) 0.64 K/uL (0.11-0.59); Monocytes % (auto) 8.7 %; Neutrophils # (auto) 4.77 K/uL (1.40-6.50); Platelet Count 261 K/uL (130-400); RDW Coefficient of Variation 13.5 % (11.5-14.5); RDW Standard Deviation 41.6 fL (36.4-46.3); Red Blood Count 4.66 M/uL (4.70-6.10); White Blood Count 7.34 K/ul (4.8-10.8)
[2023-11-03 07:16] LABS: BUN Creatinine Ratio 17.1 (10-20); Calcium 8.4 mg/dl (8.6-10.3); Creatinine Clr Calc Pharmacy 40.6 ml/min; Est GFR (African American) 71.8 ml/min; Est GFR (Non-African American) 61.9 ml/min
[2023-11-03] MEDS: AMIODARONE 200 MG TAB PO SCH ×2 (07:47→11:00)
[2023-11-03] MEDS: ASPIRIN 81 MG ECTAB PO SCH (07:47)
[2023-11-03] MEDS: ISOSORBIDE MONO EXTENDED REL 30 MG TABCR PO SCH (07:47)
[2023-11-03] MEDS: METOPROLOL TARTRATE 25 MG TAB PO SCH ×2 (07:48→20:37)
[2023-11-03] MEDS: LOSARTAN POTASSIUM 50 MG TAB PO SCH (07:48)
[2023-11-03] MEDS: INSULIN ASPART PER UNIT CHARGE SC SCH ×4 (09:35→20:32)
--- NOTE | 2023-11-03 13:01 | Hospitalist Progress Note ---
Date of Service November 03, 2023 Assessment & Plan (1) Dizziness: Plan: Dizziness, balance issues, and changes in vision x 3 days In the setting of recent CABG x 5 at [facility] on 10/01; patient was recently discharged from [facility] on 10/26 Patient's is concerned that the dizziness is due to his current medications; specifically his recent changes in blood pressure medications Amlodipine was discontinued This morning he was still feeling dizzy and had not taken any of his a.m. medications Orthostatic vital signs have been negative twice Discontinue amiodarone. Per daughter who is a physician, amiodarone was started as the patient had 2 episodes of atrial fibrillation at [facility] post CABG. Cardiology was planning to discontinue amiodarone during the next visit, per daughter. Asked the nurse to check orthostatic vital signs the next time he complains of dizziness. Family requesting cardiology consult Consulted [facility] cardiology. Dr. Zavaleta had seen the patient prior to CABG and had arranged for transfer to [facility] for the CABG. Continue telemonitoring Consider MRI of the brain if dizziness does not improve with medication adjustments (2) Type 2 diabetes mellitus: Plan: Last A1c 6.1% on 09/04/2023 Hypoglycemic on arrival at 62 Hold metformin Note: Patient reports he has been taking insulin as follows: - 8 units of NovoLog, 10 units of Semglee (Lantus) QAM - None at lunch time -10 units of NovoLog, 10 units of Semglee (Lantus) QPM Patient's medication list from 10/26 at time of [facility] discharge listed Lantus as 18 units HS Patient uses a Dexcom at home to manage his insulin levels SSI; with target BSG range [id number]/dL, CF 70, carb ratio 20 Continue to monitor for signs of hypoglycemia T2DM diet BSG [facility] Pharmacy glycemic consult (3) Hypertension: Plan: Blood pressure is stable after morning medications Continue to monitor blood pressure off of amlodipine Continue Imdur, metoprolol, olmesartan Blood pressure controlled off of amlodipine I will discontinue amiodarone today as the daughter states that it was meant to be discontinued anyways by his health information administrator. It was initiated because the patient had a few episodes of atrial fibrillation post CABG. 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 Yaya Arce Recent discharge from [facility] on 10/26 Continue aspirin Plan Full code VTE PPx: SCDs, Lovenox 40 mg SQ q24h Spoke to daughter who is a physician, Dr. Beverly Brunner at [phone]. I also spoke to at [phone]. Updated them about the plan. Awaiting PT and OT recommendation Admission and Anticipated Discharge Date Admission Date: November 01, 2023 Subjective Patient complains of dizziness today. Per nurse, he was in a lying position when he was complaining of dizziness. But the patient says that he felt dizzy the most when he was sitting on the recliner. He also had double vision associated with the dizziness. He was not dizzy during my encounter. Orthostatic vital signs were negative today. Norvasc was discontinued. Patient had not taken any of his morning medications when he was complaining of dizziness. Review of Systems Review of Systems: All systems reviewed & are unremarkable except as noted in Subjective Physical Exam Physical Exam: General: Awake, conversant, frail looking. Pleasant Heart: S1, S2/regular rate and rhythm, no murmur rubs or gallops Lungs: Clear to auscultation bilaterally. Normal effort Abdomen: Soft/nontender/nondistended. No hepatosplenomegaly Extremities: No clubbing/cyanosis. No edema Behavior: Appropriate, cooperative Results & Data Results & Data Vital Signs (Past 12 Hours) Vital Signs Temp Pulse Pulse Resp BP Pulse Ox O2 Del Method 11/03/23 12:04 36.7 C 72 16 132/72 95 Room Air 11/03/23 07:51 36.5 C 68 16 145/83 H 94 Room Air 11/03/23 07:30 65 11/03/23 03:00 37.2 C 66 18 144/75 H 97 Room Air Laboratory Results Abnormal lab results 11/02/23 11/02/23 11/03/23 Range/Units 17:12 20:06 06:37 RBC 4.66 L (4.70-6.10) M/uL Hgb 13.6 L (14.0-18.0) g/dl Hct 39.2 L (42.0-52.0) % [place] # (Auto) 0.64 H (0.11-0.59) K/uL POC Glucose 131 H 159 H (70-99) mg/dl Calcium 8.4 L (8.6-10.3) mg/dl 11/03/23 11/03/23 Range/Units 08:24 11:28 RBC (4.70-6.10) M/uL Hgb (14.0-18.0) g/dl Hct (42.0-52.0) % [place] # (Auto) (0.11-0.59) K/uL POC Glucose 113 H 255 H (70-99) mg/dl Calcium (8.6-10.3) mg/dl PG Care Time/CCT Total # of Minutes Spent Total Time Spent with Patient: Total time spent is greater than 50% in coordination of care (as documented) at patient's floor/unit and/or counseling patient: Coding Level of Care Code 58211 SUB INP/OBS CARE 2/35MIN Diagnoses Dizziness R42 Type 2 diabetes mellitus E11.9 Hypertension I10 Hyperlipidemia E78.5 History of heart bypass surgery Z95.1
[2023-11-03] MEDS: ENOXAPARIN INJ 40 MG/0.4 ML SYR SQ SCH (20:37)
[2023-11-03] MEDS: ROSUVASTATIN CALCIUM 10 MG TAB PO SCH (20:37)
[2023-11-03] MEDS: LANTUS PER UNIT CHARGE SC SCH (20:38)
[2023-11-04 07:20] LABS: Basophils # (auto) 0.03 K/uL (0.00-0.20); Basophils % (auto) 0.3 %; Eosinophils # (auto) 0.22 K/uL (0.00-0.50); Eosinophils % (auto) 2.2 %; Hematocrit (blood only) 40.9 % (42.0-52.0); Hemoglobin 14.5 g/dl (14.0-18.0); Immature Granulocytes # (auto) 0.06 K/uL (0.01-0.20); Immature Granulocytes % (auto) 0.6 %; Lymphocytes # (auto) 1.57 K/uL (1.20-3.40); Lymphocytes % (auto) 16.1 %; Mean Corpuscular Hemoglobin 29.2 pg (25.0-34.0); Mean Corpuscular Hgb Conc 35.5 g/dL (32.0-36.0); Mean Corpuscular Volume 82.5 fL (80.0-100.0); Mean Platelet Volume 11.3 fL (9.4-12.4); Monocytes # (auto) 0.78 K/uL (0.11-0.59); Neutrophils # (auto) 7.12 K/uL (1.40-6.50); Neutrophils % (auto) 72.8 %; Platelet Count 250 K/uL (130-400); RDW Coefficient of Variation 13.2 % (11.5-14.5); RDW Standard Deviation 39.9 fL (36.4-46.3); Red Blood Count 4.96 M/uL (4.70-6.10); White Blood Count 9.78 K/ul (4.8-10.8)
[2023-11-04 07:36] LABS: BUN Creatinine Ratio 19.1 (10-20); Calcium 8.7 mg/dl (8.6-10.3); Creatinine Clr Calc Pharmacy 46.1 ml/min; Est GFR (African American) 87.8 ml/min; Est GFR (Non-African American) 75.7 ml/min; Potassium 3.9 mmol/L (3.5-5.1)
[2023-11-04] MEDS: INSULIN ASPART PER UNIT CHARGE SC SCH ×2 (08:38→14:15)
[2023-11-04] MEDS: METOPROLOL TARTRATE 25 MG TAB PO SCH (08:39)
[2023-11-04] MEDS: ISOSORBIDE MONO EXTENDED REL 30 MG TABCR PO SCH (08:39)
[2023-11-04] MEDS: ASPIRIN 81 MG ECTAB PO SCH (08:39)
[2023-11-04] MEDS: LOSARTAN POTASSIUM 50 MG TAB PO SCH (08:39)
--- NOTE | 2023-11-04 14:48 | Cardiology Consultation ---
Date of Consultation November 04, 2023 Assessment & Plan (1) Coronary artery disease: (2) History of heart bypass surgery: (3) Dizziness: (4) Slurred speech: (5) Hypertension: (6) Hyperlipidemia: (7) Blurry vision: (8) Postoperative atrial fibrillation: Plan ASSESSMENT/PLAN: 1. CAD s/p CABG x 5: No further angina. Continue aspirin 81 mg daily. Continue beta-gonzalez. Continue ARB. Continue statin therapy as tolerated. Statin myopathy is reported in the chart however apparently has been tolerating rosuvastatin. 2. Hypertension: Blood pressure was initially better controlled but after amlodipine discontinued, mostly hypertensive. Resume amlodipine 5 mg daily if tolerated. Patient's is pleased with this recommendation. If dizziness worsens, would again discontinue and pursue other antihypertensive agent. 3. Dizziness: May have been related to medication such as amiodarone or high- dose amlodipine. Dizziness nearly resolved. Amiodarone is no longer necessary. Smaller dose of amlodipine as above. Has not been orthostatic per hospital chart. 4. Slurred speech and blurry vision: Concerning for neurologic event and apparently occurred 3 days following surgery. Reportedly had outpatient MRI with [facility]. Further evaluation as per primary team. 5. Dyslipidemia: Seems to be tolerating Crestor 10 mg daily. Goal LDL < 70. If continues to tolerate and LDL not at goal, would recommend high intensity statin therapy if tolerated. This can be done by his outpatient cardiology team. 6. Postop A-fib: Has been in sinus rhythm here. No evidence of A-fib while hospitalized. Agree with discontinuation of amiodarone, especially with concern for possible intolerance. Does not require long-term anticoagulation therapy unless he should have recurrent atrial fibrillation. 7. Disposition: He is followed by [facility] CT surgery and is establishing care with [facility] cardiology tomorrow with Dr. Mclaughlin. If he remains hospitalized, please contact on-call [facility] drink box mechanic tomorrow for ongoing care. Patient care communicated with Dr. Rooney of the primary hospitalist service. Thank you for allowing me to participate in the care of your patient. Please call for any other questions or concerns. Sincerely, Jose Carlos Alston M.D. History of Present Illness Reason for Consultation: " Recent CABG, dizziness, family requesting" cardiology consult Requesting Physician: Tanya Rooney MD Attending Physician: Tanya Rooney MD History of Present Illness Mr. Brunner is a pleasant 83-year-old gentleman with a history significant for multivessel CAD s/p CABG x 5 (APONTE to LAD, SVG to ramus; SVG to OM, SVG to diagonal, SVG to PDA) on 10/01/2023 at [facility], post operative atrial fibrillation, type 2 diabetes, hypertension, and dyslipidemia. He underwent cardiac catheterization on 09/27/2023 following abnormal stress echo a few days prior. Cardiac catheterization demonstrated severe CAD involving the left main, diagonal, circumflex, OM, and PDA. He was transferred to [facility] for consideration of CABG, which was performed on 10/01/2023. According to available records, following CABG he had postop atrial fibrillation and was placed on amiodarone. He was admitted here on 11/01/2023 with dizziness, blurry vision, and slurred speech. His was present at the bedside and help provide much of the history as well. Dizziness started approximately 2 days prior to presentation. He described the dizziness as the room spinning. Dizziness improves while laying down but otherwise worsens in other positions. Slurred speech and blurry vision started approximately 3 days after CABG. His reports that he had a brain MRI through the [facility] which she states was negative for stroke. While here, amiodarone was discontinued by the primary hospitalist service. Amlodipine 10 mg was also discontinued. He believes that the dizziness is much better and nearly gone but the slurred speech and blurry vision persists. He denies any memory issues. Prior to CABG, he had 2 episodes of angina. He has not had any further angina. He denies melena, hematochezia, hematuria. He denies fevers, chills, nausea, vomiting, diarrhea, syncope, near syncope, palpitations, or shortness of breath. There has not been any drainage from his sternotomy site. His reports that in general he is weak following surgery but he denies any focal weakness. His states that he has an appointment with Dr. Mcluaghlin of [facility] cardiology tomorrow in the outpatient setting. She did not wish for him to be seen today by [facility] cardiology as it was offered. She stated that they will be discharged today and she sees no need for further monitoring here. She voiced displeasure that after amlodipine was discontinued, his blood pressure has been elevated. She also stated that his glucose has been poorly controlled while here. She wants to take him home where she can monitor him there and have him follow-up in the outpatient setting. Review of systems: As above. Review of systems otherwise negative/unremarkable. Family history: No known premature CAD. Social history: Denies tobacco, alcohol abuse. Lives at home with his . 2 children. His was present at the bedside. Allergies Allergy/AdvReac Type Severity Reaction Status Date / Time dulaglutide [From [facility]] AdvReac Intermediate Constipatio Verified 09/27/23 07:37 n Home Medications Medication Instructions Recorded Confirmed Type blood-glucose meter,continuous #1 ea 02/17/22 09/18/23 Rx (Dexcom G6 Housing Property Manager) aspirin 81 mg tablet,delayed 81 mg PO QAM 03/10/22 11/01/23 History release blood-glucose transmitter (Dexcom #1 ea 11/21/22 09/18/23 Rx G6 Transmitter device) Semglee(insulin glarg-yfgn)Pen 100 8 - 10 unit (0.08 - 0.1 mL) subcut 01/09/23 09/27/23 Rx unit/mL (3 mL) subcutaneous QPM #15 mL (insulin glargine-yfgn) metformin 500 mg tablet 500 mg PO .COMPLEX #270 tabs 01/09/23 11/01/23 Rx blood sugar diagnostic (OneTouch #100 ea 03/06/23 09/18/23 Rx Verio test strips) blood-glucose meter (OneTouch #1 ea 03/06/23 09/18/23 Rx Verio Flex Meter) lancets 30 gauge (OneTouch Delica #100 ea 03/06/23 09/18/23 Rx Plus Lancet) olmesartan 40 mg tablet 40 mg PO DAILY #90 tabs 05/09/23 11/01/23 Rx pen needle, diabetic 31 gauge x #300 ea 06/01/23 09/18/23 Rx 3/16" (BD Ultra-Fine Mini Pen Needle) insulin aspart U-100 100 unit/mL 4 unit subcut BID 09/18/23 09/27/23 History (3 mL) subcutaneous pen (Novolog FlexPen U-100 Insulin aspart) blood-glucose sensor (Dexcom G6 #9 ea 10/09/23 Rx Sensor device) isosorbide mononitrate 30 mg 30 mg PO DAILY 11/01/23 11/01/23 History tablet,extended release 24 hr metoprolol tartrate 25 mg tablet 25 mg PO BID 11/01/23 11/01/23 History rosuvastatin 10 mg tablet 10 mg PO QPM 11/01/23 11/01/23 History amlodipine 5 mg tablet (Norvasc) 5 mg PO DAILY #30 tabs 11/04/23 Rx Patient History Medical History Coronary artery disease Postoperative atrial fibrillation Diabetic retinopathy Inguinal hernia rt Type 2 diabetes mellitus Dexcom present Polypoid adenoma hx Hypertension Hyperlipidemia no meds Eczema Diverticulosis Surgical History History of heart bypass surgery H/O right inguinal hernia repair (10/10/22) p Open Repair Right Inguinal Hernia Possible Mesh(Right) - William Christine MD, FACS Open repair Star History of anesthesia problem Elevated BP during 02/2022 colonoscopy per pt requiring additional meds per pt. MAC sedation used for colonoscopy 03/16/22 at [facility]- No major complications noted per post-op anesthesia progress note. Per progress note, elevated BP readings from 170-200s/80-100s with improvement prior to discharge. (Preop BP was 166/77) PCP aware of elevated BP at that time and monitoring closely/adjusting Losartan dosing. BP 120/82 and 130/82 at PCP visit 08/21/22. History of colonoscopy (~02/2022) with polypectomy H/O shoulder surgery (~1998) left Family History Sister Diabetes Brother Diabetes Grandfather (Maternal) Diabetes Father Myocardial infarction Denies family history of Ovarian cancer Prostate cancer Breast cancer Colorectal cancer Stroke Social History Smoking Status: Never smoker Second Hand Exposure: No; Do You Dip or Chew Tobacco: No; Hx Alcohol Use: No Hx Substance Use: No Preferred Language: Angolan Communication Ability: Effective Visual Impairment: No Limitations Hearing Ability: Normal Tile Presser Required: No Beliefs That Will Affect Care: None marital status: Current Living Situation: Spouse current occupational status: employed current occupation: Professor How many Children do You have: 2 Feels Safe at Home: Yes Childhood Exposure to Second-Hand Smoke: No Diet: diabetic during the past year weight has: decreased > 10 lbs Dental Care, Regularly: Yes Physical Activity Frequency: 5-6 Times per Week Seatbelt Use: always Assistive Devices: Walker and Wheelchair Physical Exam Physical Exam: Gen.: No acute distress. Alert. Slurred speech. HEENT: Anicteric sclera. Neck: No JVD. Cardiac: No ventricular heave. Regular. Normal S1-S2. 2/6 systolic murmur. Pulmonary: Clear to auscultation bilaterally without wheezes, rales, or rhonchi. Abdomen: Soft, nontender, nondistended, with normoactive bowel sounds. No bruits noted. Extremities: 2+ radial pulses bilaterally. 2+ posterior tibialis pulses bilaterally. No edema or cyanosis. Chest: Sternotomy site was clean, dry, and intact without erythema or discharge. Results & Data Vital Signs (Past 12 Hours) Vital Signs Temp Pulse Pulse Resp BP Pulse Ox O2 Del Method 11/04/23 07:30 67 11/04/23 07:17 36.6 C 70 16 162/77 H 94 Room Air 11/04/23 02:49 37.0 C 68 16 160/83 H 96 Room Air Laboratory Results Laboratory Results - last 24 hr 11/03/23 11/03/23 11/04/23 15:44 20:24 06:41 WBC 9.78 RBC 4.96 Hgb 14.5 Hct 40.9 L MCV 82.5 MCH 29.2 MCHC 35.5 RDW Std Deviation 39.9 RDW Coeff of Sherri 13.2 Plt Count 250 MPV 11.3 Immature Gran % (Auto) 0.6 Neut % (Auto) 72.8 Lymph % (Auto) 16.1 [place] % (Auto) 8.0 Eos % (Auto) 2.2 Baso % (Auto) 0.3 Neut # (Auto) 7.12 H Lymph # (Auto) 1.57 [place] # (Auto) 0.78 H Eos # (Auto) 0.22 Baso # (Auto) 0.03 Immature Gran # (Auto) 0.06 Sodium 138 Potassium 3.9 Chloride 106 Carbon Dioxide 25 Anion Gap 7 BUN 18 Creatinine 0.94 Est Cr Clr Drug Dosing 46.1 Est GFR ( Amer) 87.8 Est GFR (Non-Af Amer) 75.7 BUN/Creatinine Ratio 19.1 Glucose 114 H POC Glucose 204 H 105 H Calcium 8.7 11/04/23 11/04/23 08:04 12:17 WBC RBC Hgb Hct MCV MCH MCHC RDW Std Deviation RDW Coeff of Sherri Plt Count MPV Immature Gran % (Auto) Neut % (Auto) Lymph % (Auto) [place] % (Auto) Eos % (Auto) Baso % (Auto) Neut # (Auto) Lymph # (Auto) [place] # (Auto) Eos # (Auto) Baso # (Auto) Immature Gran # (Auto) Sodium Potassium Chloride Carbon Dioxide Anion Gap BUN Creatinine Est Cr Clr Drug Dosing Est GFR ( Amer) Est GFR (Non-Af Amer) BUN/Creatinine Ratio Glucose POC Glucose 129 H 269 H Calcium Diagnostic Findings [facility] operative note and discharge summary reviewed as summarized in HPI. History and physical report reviewed. Telemetry personally reviewed: Sinus rhythm. No arrhythmia. Labs reviewed and notable for normal blood counts, stable renal function, normal potassium, elevated LDL, normal TSH, normal transaminase levels, normal high- sensitivity troponin. CT head 11/01/2023: No acute intracranial abnormality per radiology. Chronic microvascular ischemic disease. 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 Chest x-ray 11/01/2023: No active disease per radiology. ECGs personally reviewed: ECG 11/01/2023 12:59 PM: Sinus rhythm 67 bpm. Anterolateral T wave inversion. Medications Administered Current Inpatient Medications Acetaminophen (Acetaminophen 325 Mg Tab) 650 mg PO Q4H PRN PRN Reason: Pain or Fever Stop: 12/01/23 17:54 Aspirin (Aspirin 81 Mg Ectab) [facility] [place] Stop: 12/02/23 08:59 Last Admin: 11/04/23 08:39 Dose: 81 mg Dextrose (Dextrose 50% 50 Ml Syringe) 25 - 50 ml IV UD PRN; Protocol PRN Reason: Hypoglycemia Protocol Stop: 12/01/23 17:54 Enoxaparin Sodium (Enoxaparin Inj 40 Mg/0.4 Ml Syr) 40 mg SQ Q24H HARSHIL Stop: 12/01/23 18:59 Last Admin: 11/03/23 20:37 Dose: 40 mg Glucagon (Glucagon For Inj 1 Mg Vial) 1 mg SQ UD PRN; Protocol PRN Reason: Hypoglycemia Protocol Stop: 12/01/23 17:54 Glucose (Glucose 10 Tab/Tube) 4 - 8 tab PO UD PRN; Protocol PRN Reason: Hypoglycemia Treatment Stop: 12/01/23 17:54 Glucose (Glucose 40% Gel 15 Gm Tube) 15 - 30 gm PO UD PRN; Protocol PRN Reason: Hypoglycemia Protocol Stop: 12/01/23 17:54 Insulin Aspart (Insulin Aspart Per Unit Charge) 0 units SC ACHS HARSHIL Stop: 12/01/23 18:14 Last Admin: 11/04/23 14:15 Dose: 7 units Insulin Glargine (Lantus Per Unit Charge) 3 units SC QPM HARSHIL Stop: 12/02/23 20:59 Last Admin: 11/03/23 20:38 Dose: 3 units Isosorbide Mononitrate (Isosorbide [place] Extended Rel 30 Mg Tabcr) 30 mg PO DAILY HARSHIL Stop: 12/02/23 08:59 Last Admin: 11/04/23 08:39 Dose: 30 mg Losartan Potassium (Losartan Potassium 50 Mg Tab) 100 mg PO DAILY [facility]; Protocol Stop: 12/02/23 08:59 Last Admin: 11/04/23 08:39 Dose: 100 mg Metoprolol Tartrate (Metoprolol Tartrate 25 Mg Tab) 25 mg PO BID HARSHIL Stop: 12/01/23 20:59 Last Admin: 11/04/23 08:39 Dose: 25 mg Miscellaneous (Carbohydrates For Hypoglycemia ) 15 - 30 gm PO UD PRN PRN Reason: Hypoglycemia Protocol Stop: 12/01/23 17:54 Miscellaneous Information (Pharmacy Glycemic Mgmt Consult) 1 each N/A UD PRN PRN Reason: Consult Stop: 12/01/23 17:54 Rosuvastatin Calcium (Rosuvastatin Calcium 10 Mg Tab) 10 mg PO QPM HARSHIL Stop: 12/01/23 20:59 Last Admin: 11/03/23 20:37 Dose: 10 mg PG Care Time/CCT Total # of Minutes Spent Total Time Spent with Patient: Total time spent is greater than 50% in coordination of care (as documented) at patient's floor/unit and/or counseling patient: Coding Level of Care Code 12401 INT INP/OBS CARE Diagnoses Coronary artery disease I25.10 History of heart bypass surgery Z95.1 Dizziness R42 Slurred speech R47.81 Hypertension I10 Hyperlipidemia E78.5 Blurry vision H53.8 Postoperative atrial fibrillation I97.89; I48.91
--- NOTE | 2023-11-04 14:49 | Discharge Summary ---
Date of Service November 04, 2023 Admission HPI Per Admitting Provider Boubacar is an 83-year-old male with PMH of 5 recent bypass surgeries in September 2023, T2DM, HTN, HLD, diabetic retinopathy, neuropathy, and CAD. He presented for dizziness, balance issues, and slurred speech x 3 days. Patient reportedly had a stomach bug 6 days ago, and was vomiting for 24 hours, but this has since resolved. Since then, he has been somewhat fatigued and dizzy with vision issues. Patient reports that the dizziness is worse with standing. Patient's is at the bedside and believes that it is due to his current medication list; more specifically due to his blood pressure medications. Patient reports that he has a BP monitor at home, and that he has been checking it regularly; he reports that it has not been low. Neither patient nor have noticed a facial droop, or unilateral deficits. Patient has been hypoglycemic at 62 since arrival, despite receiving juice in the ED. He denies history of vertigo, CVA, or seizures; however patient notes he had a recent brain MRI with chronic changes that could indicate history of TIAs. Patient has been using a walker to ambulate since his heart surgery was in September. He reports good compliance with taking his medications, including his insulin. No recent change in medications was starting Tamiflu 30 mg x 5 days. No recent rashes, or tick bites. He denies recent injuries or trauma to the head or neck. Denies recent falls or fainting. He denies alcohol, tobacco, vaping, or recreational drug use. Patient is mildly hypertensive at 143/75 at time of admission; vitals otherwise stable. ED course: NSS 500 mL IV x 2 ROS: Patient endorses dizziness, balance issues, changes in vision, diplopia, blurred vision, pleuritic CP (which has been ongoing since his surgery), increased urinary frequency, and vomiting (which has resolved). Patient denies fever, chills, sweating, headache, neck pain, falls, fainting, photophobia, changes in hearing/taste/smell, chest pain, SOB, abdominal pain, or numbness or tingling in the arms or legs bilaterally. Note: Patient reports he has been taking insulin as follows: - 8 units of NovoLog, 10 units of Semglee (Lantus) QAM - None at lunch time -10 units of NovoLog, 10 units of Semglee (Lantus) QPM Patient's medication list from 10/26 at time of [facility] discharge listed Lantus as 18 units HS Admission Exam Per Admitting Provider General: no acute distress; non-toxic appearing; well-nourished; cooperative; SpO2 95% on RA HEENT: normocephalic, atraumatic; no scleral icterus; PERRLA w/ EOMs intact; moist mucus membrane; vision and hearing grossly intact Neck: supple; no JVD; no lymphadenopathy; trachea midline Skin: warm, dry without signs of tenting; no cyanosis; no rashes, bruising, lesions, or erythema noted CV: chest wall NTP; RRR; S1/S2 normal; no murmurs/rubs/gallops; pulses intact and symmetric at radial, DP, and PT Lungs: no acute respiratory distress; symmetrical chest wall expansion; clear breath sounds across all lung garcia w/o adventitious sounds; no wheezing ABD: Soft, NTP; BS present; no rebound/guarding; no ascites; no distention; negative CVA tenderness MSK: no tics or fasciculations; no edema noted in the LEs b/l Neuro: A&Ox3; normal mood and affect; fluent speech; CN2-12 intact; sensation grossly intact Principal Diagnosis Dizziness possibly related to polypharmacy and overmedication Discharge Exam General: Awake, conversant, frail looking. Pleasant Heart: S1, S2/regular rate and rhythm, no murmur rubs or gallops Lungs: Clear to auscultation bilaterally. Normal effort Abdomen: Soft/nontender/nondistended. No hepatosplenomegaly Extremities: No clubbing/cyanosis. No edema Behavior: Appropriate, cooperative Discharge Data Allergies Allergy/AdvReac Type Severity Reaction Status Date / Time dulaglutide [facility] AdvReac Intermediate Constipatio Verified 09/27/23 07:37 n Consultations 11/01/23 14:16 ED Decision to Admit Stat 11/03/23 13:05 Consult Cardiology Routine Ordered Studies 11/01/23 13:07 CT head/brain wo con Stat Hospital Course (1) Dizziness: Dizziness, balance issues, and changes in vision x 3 days In the setting of recent CABG x 5 at [facility] on 10/01; patient was recently discharged from [facility] on 10/26 Patient's is concerned that the dizziness is due to his current medications; specifically his recent changes in blood pressure medications Amlodipine was discontinued but his blood pressure started to creep up although his dizziness has resolved I decided to resume amlodipine at a lower dose of 5 mg daily Orthostatic vital signs have been negative twice Discontinue amiodarone. Per daughter who is a physician, amiodarone was started as the patient had 2 episodes of atrial fibrillation at [facility] post CABG. Cardiology was planning to discontinue amiodarone during the next visit, per daughter. Family requesting cardiology consult. Cardiology was consulted. Agree with the plan. tells me that an MRI of the brain was done in the last few weeks and was negative. Patient already has appointment with cardiology tomorrow, appointment with neurology in near future and appointment with PCP within 1 week. Plan to discharge the patient today PT/OT recommended rehab. However patient and family would like to go home. (2) Type 2 diabetes mellitus: Last A1c 6.1% on 09/04/2023 Hypoglycemic on arrival at 62 Hold metformin Note: Patient reports he has been taking insulin as follows: - 8 units of NovoLog, 10 units of Semglee (Lantus) QAM - None at lunch time -10 units of NovoLog, 10 units of Semglee (Lantus) QPM Patient's medication list from 10/26 at time of [facility] discharge listed Lantus as 18 units HS Patient uses a Dexcom at home to manage his insulin levels SSI; with target BSG range 821582um/dL, CF 70, carb ratio 20 Continue to monitor for signs of hypoglycemia T2DM diet BSG ACHS Family states that his blood sugar was very well-controlled at home and would like to go to home with his home regimen. (3) Hypertension: Blood pressure is stable after morning medications Continue to monitor blood pressure off of amlodipine Continue Imdur, metoprolol, olmesartan Blood pressure starting to creep up off of amlodipine, thus resumed amlodipine at lower dose of 5 mg Discontinued amiodarone. 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 Yaya Arce Recent discharge from [facility] on 10/26 Continue aspirin Plan Full code Spoke to daughter who is a physician, Dr. Beverly Brunner at [phone]. I also spoke to at [phone]. Updated them about the plan. Discharge to home today. Total Time Total Time Spent Total Time Spent (In Minutes): 35 Discharge Plan Discharge Items Patient Disposition: Home - Home Health Services Reason For Visit: DIZZINESS Discharge Diagnosis: Dizziness likely due to overmedication Polypharmacy Condition on Discharge: Fair Activity: Resume your previous activity Non-emergency contact: Primary Care Provider Call non-emergency contact if: you have any medication questions and your symptoms worsen Follow-up/Referrals: Pro,Dax Huang MD [Primary Care Provider] - 11/13/23 1:30 pm Diet: Carb Consistent or DM2 and Heart Healthy Addtl Attending Provider Instructions: Advised to follow-up with PCP in 1 week Advised to follow-up with cook pressure as per previous schedule Pending Studies at Discharge: No Stand-Alone Forms: [facility] [employer], Smoking Cessation Medications and DC Order Prescriptions: New amlodipine [Norvasc] 5 mg tablet 5 mg PO DAILY Qty: 30 0RF Continued (DME) Dexcom G6 [employer] Misc See Rx Instructions .Route Qty: 1 0RF Rx Instructions: As directed (DME) Dexcom G6 Transmitter Device See Rx Instructions .Route Qty: 1 3RF Rx Instructions: use to check blood sugar continuely, change out every 90 days (DME) OneTouch Verio test strips Strip See Rx Instructions .Route Qty: 100 5RF Rx Instructions: As directed to check blood sugar two times a day (DME) lancets [OneTouch Delica Plus Lancet] 30 gauge [facility] See Rx Instructions .Route Qty: 100 5RF Rx Instructions: As directed to test blood sugar two times a day (DME) blood-glucose meter [OneTouch Verio Flex meter] [facility] See Rx Instructions .Route Qty: 1 0RF Rx Instructions: As directed to test blood sugar two times a day (DME) pen needle, diabetic [BD Ultra-Fine Mini Pen Needle] 31 gauge x 3/16" needle See Rx Instructions .Route Qty: 300 3RF Rx Instructions: As directed to inject insulin three times day (DME) Dexcom G6 Sensor Device See Rx Instructions .ROUTE .COMPLEX Qty: 9 2RF Dose Instruction: USE TO CHECK BLOOD SUGAR CONTINOUS; CHANGE EVERY 10 DAYS Rx Instructions: USE TO CHECK BLOOD SUGAR CONTINOUS; CHANGE EVERY 10 DAYS olmesartan 40 mg tablet 40 mg PO DAILY Qty: 90 3RF insulin aspart U-100 [Novolog FlexPen U-100 Insulin] 100 unit/mL (3 mL) insulin pen 4 unit subcut BID Patient Comments: 4-5 units depending on BS insulin glargine-yfgn [Semglee(insulin glarg-yfgn)Pen] 100 unit/mL (3 mL) insulin pen 8 - 10 unit subcut QPM Qty: 15 3RF metformin 500 mg tablet 500 mg PO .COMPLEX Qty: 270 3RF Hold Instructions: Resume on 10/04/23. Rx Instructions: 500 mg orally two in am and one in evening; aspirin 81 mg tablet,delayed release (DR/EC) 81 mg PO QAM isosorbide mononitrate 30 mg tablet extended release 24 hr 30 mg PO DAILY rosuvastatin 10 mg tablet 10 mg PO QPM metoprolol tartrate 25 mg tablet 25 mg PO BID Discontinued amiodarone 200 mg tablet 200 mg PO DAILY amlodipine 10 mg tablet 10 mg PO DAILY Discharge Orders: Discharge Order (Routine); Ordered 11/04/23 Ordered By: Tanya Rooney Admission Data Admit Date/Time: 11/01/23 16:15 Attending Provider: Tanya Rooney Admit Provider: Best Mancera Primary Care Provider: Dax Nathan Other Providers: Best Mancera; [facility]; Gilberto Alston Coding Level of Care Code 57169 INP/OBS DISCH >30 MIN Diagnoses Dizziness R42 Type 2 diabetes mellitus E11.9 Hypertension I10 Hyperlipidemia E78.5 History of heart bypass surgery Z95.1
== END 2023-11-04 16:24 | disposition home health service (06) | DRG 149 ==
LOC: ED 12:42 → SUATTDRO 16:15 → INTOOBSV 16:15 → EDINP 16:15 → 2N 22:03